=== PATIENT | male | born 1950 | race Caucasian/White ===

== ENCOUNTER 2016-12-27 14:42 | Inpatient (IN) | payer MEDICARE ==
[2016-12-27 16:35] LABS: Anion Gap 14 mmol/L (10-20); BUN (Urea Nitrogen) 8 mg/dL (8.4-25.7); Calc. Creatinine Clearance 0 mL/min (70-130); Calcium 8.9 mg/dL (7.8-10.44); Carbon Dioxide 27 mmol/L (23-31); Chloride 86 mmol/L (98-107); Estimated GFR-MDRD Greater than 90
[2016-12-27] MEDS ORDERED: cefTRIAXone\\ROCEPHIN 2 GM in Sodium Chloride 0.9% 100 ML IVPB SCH (16:57)
[2016-12-27 17:01] VITALS: BMI 20.7
[2016-12-27] MEDS: Enalaprilat Dihydrate 1.25 MG/ML VIAL SLOW IVP SCH (17:58)
[2016-12-27] MEDS ORDERED: Potassium Chloride 20 MEQ TAB PO SCH (20:15)
[2016-12-27] MEDS: Multivitamins, Adult 10 ML, Folic Acid 1 MG, Thiamine HCl 100 MG in Dextrose 5 %-0.45 %... IV SCH ×4 (20:48)
[2016-12-27] MEDS: Famotidine 20 MG TAB PO SCH (20:49)
[2016-12-27] MEDS: guaiFENesin ER 600 MG TAB PO SCH (20:49)
--- NOTE | 2016-12-27 23:26 | HP ---
DATE OF ADMISSION: 12/27/2016 CHIEF COMPLAINT: Shortness of breath, cough, and feeling overall very weak for the last few days kan arently. He was having some respiratory issues approximately 11 days ago when he went to GP and then his condition got better than it worsened and he decided to come to the emergency room. He came to [facility] today and complained about shortness of breath and overall feeling weak and h aving coughing spells. His chest x-ray showed possible right upper lobe pneumonia and the patient wa s transferred to [facility]. Also, he was found to have hyponatremia and hypokale [place]. This is probably related to his poor appetite in the last few days. He had some fever in the b eginning of this illness with some chills, but no fever and no chills recently. PAST MEDICAL HISTORY: 1. Positive for hypertension. 2. History of non-Hodgkin's lymphoma. CURRENT MEDICATIONS: Benazepril amlodipine 10/20 one tablet once a day, Nexium 40 mg once a day. FAMILY HISTORY: His mother is still alive. She is 84. Father of unclear cause. ALLERGIES: None. REVIEW OF SYSTEMS: Twelve systems were reviewed and they were negative except for HPI symptoms. Als o, he is complaining about feeling cold quite often. PHYSICAL EXAMINATION: VITAL SIGNS: His blood pressure is 169/86, pulse is 120. Respiratory rate is 24. HEENT: His head is atraumatic, normocephalic. He looks quite sick, tired and weak. Eyes are PERRLA . Eyes are sunken. Sclerae nonicteric. Conjunctivae pinkish. Oral mucosa is somewhat dry. NECK: Supple, no lymphadenopathy, no JVD. LUNGS: Bilateral crackles and rales present at the left base and in the right base. HEART: S1, S2, tachycardic. No S3, no S4, no any murmur. ABDOMEN: Soft, nontender, nondistended, bowel sounds are present, no organomegaly. EXTREMITIES: No clubbing, cyanosis or edema. Pulses are palpable on both tibialis posterior and joseph salis pedis arteries, similar bilaterally. NEUROLOGIC: He is alert and oriented x4, there is no any sensorimotor deficits present. Cranial ner ves are intact. SKIN: No rash or erythema. LABORATORY AND X-RAY FINDINGS: Showed white count of 16.9, hemoglobin 14.4, hematocrit 42.5, platele t count is 447. Sodium of 121, chloride 77, CO2 of 28, BUN 9, creatinine 1.09, CK-MB 2.3, troponin I less than 0.010. Urine showed 1+ bacteria, trace of leukocytes and trace of blood. BNP was 46.6, p otassium was 2.9. Chest x-ray was done and it showed right upper lobe infiltrate. I do not see an E KG in the documentation bolus in emergency room. We will look for one and if we cannot find i t, we will get a new one. IMPRESSION: 1. Post-flu pneumonia, it is in the right upper lobe. 2. Hyponatremia, hypochloremia, most likely related to volume loss. 3. Hypokalemia, for replacement. 4. History of non-Hodgkin's lymphoma in the past. 5. Hypertension. PLAN: Full admission to MICU. Condition is guarded. IV normal saline 100 mL per hour. IV Levaquin and IV Rocephin. Pulmonary consultation. DuoNeb q.4 hours. DVT prophylaxis with Lovenox and PUD p rophylaxis with H2 víctor. Continue home medications and [facility], so we are going to check on that tomorrow, we will get lab work tomorrow morning and g o from there.
[2016-12-28] MEDS: Enalaprilat Dihydrate 1.25 MG/ML VIAL SLOW IVP SCH ×2 (00:19→06:27)
[2016-12-28] MEDS: Acetaminophen 325 MG TAB PO PRN ×3 (04:15→17:36)
[2016-12-28 04:32] LABS: Strp pneuU Control Background? CLEAR/WHITE (CLR/WHITE); Strp pneumo Control Bar Appear YES (CONTROL BAR)
[2016-12-28 05:14] LABS: Anion Gap 14 mmol/L (10-20); BUN (Urea Nitrogen) 7 mg/dL (8.4-25.7); Calc. Creatinine Clearance 93 mL/min (70-130); Calcium 8.5 mg/dL (7.8-10.44); Carbon Dioxide 26 mmol/L (23-31); Chloride 86 mmol/L (98-107); Estimated GFR-MDRD Greater than 90
[2016-12-28 05:55] LABS: Band 13 % (5-11); Mean Platelet Volume 5.7 fL (7.4-10.4); Myelocyte 1 % (0-0); Neutrophil 72 % (42-75); Red Blood Cell (RBC) Count 3.74 mill/uL (4.70-6.10); White Blood Cell (WBC) Count 16.6 thou/uL (4.8-10.8)
[2016-12-28] MEDS: Potassium Chloride 20 MEQ TAB PO SCH ×3 (06:24→17:36)
--- NOTE | 2016-12-28 08:13 | PRG ---
DATE OF SERVICE: 12/28/2016 SUBJECTIVE: The patient is seen and examined at the bedside. He is doing significantly better. He is up and he just finished his breakfast. He is still coughing quite a bit, but that is less than ye sterday. Overall, he feels much better. OBJECTIVE: VITAL SIGNS: Blood pressure is 146/68, respiratory rate is 16, O2 saturation is 96% on 2 liters, tem perature is 98.5, pulse is 87 beats per minute. Maximal temperature overnight was 99.3. HEENT: His head is atraumatic, normocephalic. Eyes are PERRLA. Sclerae nonicteric. Oral mucosa mo ist. NECK: Supple, no lymphadenopathy. Thyroid is not palpable. LUNGS: Bilateral rales and wheezing present at all lobes. CARDIOVASCULAR: S1, S2 normal, no S3, no S4. ABDOMEN: Nontender, nondistended. Bowel sounds are present. No organomegaly. EXTREMITIES: No clubbing, cyanosis or edema. NEUROLOGIC: He is alert and oriented x4. There is not any sensory motor deficits present. Cranial nerves are intact. LABORATORY DATA: Showed white count of 16.6, hemoglobin of 11.5, hematocrit 34.0, platelet count is 440. Sodium 123, potassium 2.9, chloride 86, CO2 26, BUN 7, creatinine 0.77, glucose 131, magnesium 1.0. Streptococcal pneumoniae antigen in the urine is negative. Microbiology results are not posted yet. IMPRESSION AND PLAN: 1. Right upper lobe pneumonia versus bronch-pneumonia, clinically the patient improved, although his white count is still elevated with increased risk of Staphylococcal infection, we are going to start him on vancomycin and we will have mash filter cloth changer to evaluate his condition and give us recommendatio ns. 2. Hyponatremia. We will obtain a urine and serum osmolalities and urine electrolytes to assess the kind of hyponatremia he has and in the meantime, we will give him normal saline at 75 mL per hour. I think he is just volume depleted. 3. Hypomagnesemia. We will correct with IV magnesium. 4. Hypertension. The patient is back on his home medications at this time. 5. History of non-Hodgkin's lymphoma. 6. Dehydration. We will give him IV fluids. The patient is going to be transferred to a telemetry floor after he is seen by a mash filter cloth changer and his electrolyte deficiencies were replaced and we will continue his DuoNeb q.4 hours and we will continue deep venous thrombosis prophylaxis with Lovenox, a nd H2 víctor for peptic ulcer disease prophylaxis and we will check on blood cultures.
[2016-12-28] MEDS ORDERED: Magnesium 2 GM/NS 0.9% 100 ML 2 GM in Premix Bag 1 BAG IVPB SCH ×2 (08:45→12:00)
[2016-12-28] MEDS ORDERED: AMLODIPINE BESYLATE PO SCH (09:00)
[2016-12-28] MEDS ORDERED: BENAZEPRIL PO SCH (09:00)
[2016-12-28] MEDS: Vancomycin HCl 1 GM in Premix Bag 1 BAG IVPB SCH ×2 (09:03→20:46)
[2016-12-28] MEDS: Sodium Chloride 0.9% 1,000 ML IV SCH (09:03)
[2016-12-28] MEDS: guaiFENesin ER 600 MG TAB PO SCH ×2 (09:05→20:46)
[2016-12-28] MEDS: Amlodipine 10 MG TAB PO SCH (09:05)
[2016-12-28] MEDS: Enoxaparin Sodium 40 MG/0.4 ML SYRINGE SC SCH (09:05)
[2016-12-28] MEDS: Famotidine 20 MG TAB PO SCH ×2 (09:05→20:46)
[2016-12-28 10:12] LABS: Potassium, Urine 20.8 mmol/L
[2016-12-28 10:18] LABS: LegU Control Bar Appear? YES (CONTROL BAR); LegionellaU Control Bkground? CLEAR/WHITE (CLR/WHITE)
--- NOTE | 2016-12-28 10:36 | CT ---
CT THORAX WITHOUT IV CONTRAST: Date: 12/28/16 HISTORY: Pneumonia. COMPARISON: 11/02/15. FINDINGS: Lack of IV contrast limits evaluation of the vascular structures, as well as mediastinal structures. Vascular calcifications are seen in the coronary arteries, as well as involving the thoracic aorta. There is a mildly enlarged lymph node seen within the AP window measuring approximately 1.5 cm in vesta rt axis dimension, which is larger in size compared to prior exam where this measured approximately 1 .0 cm in short axis. Small hiatal hernia is present. There are bibasilar reticulonodular densities with patchy parenchymal opacities at each lung base, gr eater on the left. Findings are worrisome for infectious process. A few scattered reticulonodular den sities are also seen within each upper lobe and to a lesser extent right middle lobe. A few ground-gl ass opacities are also seen within the medial aspect of each upper lobe. No pleural effusion is ident ified. No other interval change from the prior exam. These findings were not present on the prior study. There is a small amount of fluid in the esophagus which may be related to gastroesophageal reflux. Degenerative changes are seen in the spine. There is right convex curvature of the upper thoracic spi ne. IMPRESSION: 1. Reticulonodular densities seen throughout the lungs bilaterally, greater in the left lower lobe, with bibasilar areas of consolidation also greater in the left lung base. Findings are likely related to infectious or inflammatory process and atypical infectious process should be considered. 2. Mild enlargement of a mediastinal lymph node in the region of the AP window. No other enlarged ly mph nodes are appreciated by CT size criteria. Prior studies indicate history of lymphoma. 3. Nonspecific bilateral perinephric stranding. POS: [facility]
--- NOTE | 2016-12-28 11:00 | RAD ---
PORTABLE AP CHEST: Date: 12/28/16 HISTORY: Pneumonia. COMPARISON: 12/27/16. FINDINGS: There is mild increased interstitial densities at the left lung base, which may be related to develop ing pneumonia. A few linear interstitial densities are also seen at the right lung base. The cardiac silhouette and pulmonary vasculature are within normal limits. No other interval change. IMPRESSION: Interstitial densities at the left lung base, worrisome for developing pneumonia. Follow-up to resolu tion is recommended. POS: [facility]
[2016-12-28] MEDS ORDERED: Sodium Chloride 3% 250 ML IVPB SCH (12:45)
--- NOTE | 2016-12-28 16:17 | CON ---
DATE OF CONSULTATION: 12/28/2106 HISTORY OF PRESENT ILLNESS: Mr. Marshall is a 66-year-old male who presented with several days of coug h and shortness of breath as well as an anxious feeling. Chest radiograph shows an upper lobe infiltrate. He subsequently was transferred for admission. He says he felt better than when he went to the ER yesterday. PAST MEDICAL HISTORY: Remarkable for hypertension, history of treated lymphoma. SOCIAL HISTORY: He is nonsmoker, nondrinker. He says he quit like 18 years ago. He does dip snuff all day long. He was on benazepril, Nexium prior to admission. Father is . Mother is alive at 84[address] drug use. ALLERGIES: He has no drug allergies. REVIEW OF SYSTEMS: Twelve-point review of systems was negative. PHYSICAL EXAMINATION VITAL SIGNS: He is afebrile, heart rate is 97, respiratory rate 16, oximetry is 97, blood pressure 1 13/59. HEAD AND NECK: Unremarkable. Dentition is fair. He has no cervical lymphadenopathy. LUNGS: Remarkable for crackles in both bases. HEART: Regular rhythm. S1 and S2 are normal. ABDOMEN: Soft and nontender. EXTREMITIES: Without clubbing, cyanosis, or edema. LABORATORY DATA: White count 16.6, hemoglobin 11.5, platelets 440,000. Sodium 123, potassium 2.9, c hloride 86, bicarbonate 26, BUN 7, creatinine 0.77, glucose 250. IMPRESSION: 1. Pneumonia, community acquired. 2. Hyponatremia, cortisol level, TSH needs to be ordered. He will be given 1 dose of 3% saline 250 mL over 3 hours. I doubt this is real estate representative of an underlying malignancy and likely is related to his pneumonia. This is lower than what I would expect for drug-induced hyponatremia, though it is s till in the differential. I agree with antimicrobial coverage. He says he is feeling better. I think he can be transferred ou t of the intermediate care unit. Chest radiograph and CT have been reviewed.
[2016-12-28] MEDS: Lorazepam 1 MG TAB PO PRN (20:50)
[2016-12-29] MEDS: Lorazepam 1 MG TAB PO PRN (00:50)
[2016-12-29] MEDS: Multivitamins, Adult 10 ML, Folic Acid 1 MG, Thiamine HCl 100 MG in Dextrose 5 %-0.45 %... IV SCH ×4 (00:51)
[2016-12-29] MEDS: Sodium Chloride 0.9% 1,000 ML IV SCH (00:58)
[2016-12-29 05:48] LABS: Anion Gap 13 mmol/L (10-20); BUN (Urea Nitrogen) 7 mg/dL (8.4-25.7); Calc. Creatinine Clearance 88 mL/min (70-130); Calcium 8.7 mg/dL (7.8-10.44); Carbon Dioxide 25 mmol/L (23-31); Chloride 88 mmol/L (98-107); Estimated GFR-MDRD Greater than 90
[2016-12-29 06:16] LABS: Band 14 % (5-11); Hematocrit 34.6 % (42.0-52.0); Mean Platelet Volume 5.8 fL (7.4-10.4); Neutrophil 78 % (42-75); Red Blood Cell (RBC) Count 3.75 mill/uL (4.70-6.10); Toxic Granulation SLIGHT; White Blood Cell (WBC) Count 18.6 thou/uL (4.8-10.8)
[2016-12-29] MEDS ORDERED: Mag-Al 1200 mg/1200 mg/30 ML UDCUP PO PRN (07:36)
[2016-12-29] MEDS ORDERED: Bisacodyl 10 MG SUPP PR PRN (07:36)
[2016-12-29] MEDS ORDERED: Sodium Chloride 0.65% Nasal 44 ML BOT EA NARE PRN (07:36)
[2016-12-29] MEDS ORDERED: Loratadine 10 MG TAB PO PRN (07:36)
[2016-12-29] MEDS ORDERED: Loperamide HCl 2 MG CAP PO PRN (07:36)
[2016-12-29] MEDS ORDERED: Artificial Tears 18 DROP/0.9 ML EA EYE PRN (07:36)
[2016-12-29] MEDS ORDERED: Chloraseptic Spray 180 ml Bottle PO PRN (07:36)
[2016-12-29] MEDS ORDERED: hydrALAZINE 20 MG/ML VIAL SLOW IVP PRN (07:36)
[2016-12-29] MEDS ORDERED: Milk Of Magnesia 30 ML UDCUP PO PRN (07:36)
[2016-12-29] MEDS ORDERED: Temazepam 15 MG CAP PO PRN (07:36)
[2016-12-29] MEDS ORDERED: HYDROcodone/Acetaminophen 5/325 mg Tablet PO PRN (07:36)
[2016-12-29] MEDS ORDERED: Ondansetron ODT 4 MG TAB PO PRN (07:36)
[2016-12-29] MEDS ORDERED: cloNIDine 0.1 MG TAB PO PRN (07:36)
[2016-12-29] MEDS ORDERED: Ondansetron HCl/PF 4 MG/2 ML Vial IVP PRN (07:36)
[2016-12-29] MEDS ORDERED: Diabetic Tussin 200 MG/10 ML UDCUP PO PRN (07:36)
[2016-12-29] MEDS ORDERED: Eucerin (Mineral Oil/Petrolatum,White) 30 gm Jar TOP PRN (07:36)
[2016-12-29 07:57] LABS: Magnesium 1.6 mg/dL (1.6-2.6); Phosphorus 2.3 mg/dL (2.3-4.7)
[2016-12-29] MEDS: NS 0.9% w/ 20 MEQ KCL 1,000 ML/1,000 ML BAG IV SCH (08:06)
[2016-12-29] MEDS: Multivitamin W/ Minerals 1 TAB PO SCH (08:11)
[2016-12-29] MEDS: Ferrous Sulfate 325 MG TAB PO SCH (08:12)
[2016-12-29] MEDS: Amlodipine 10 MG TAB PO SCH (08:12)
[2016-12-29] MEDS: guaiFENesin ER 600 MG TAB PO SCH ×2 (08:14→20:23)
[2016-12-29] MEDS: Enoxaparin Sodium 40 MG/0.4 ML SYRINGE SC SCH (08:15)
[2016-12-29] MEDS: Vancomycin HCl 1 GM in Premix Bag 1 BAG IVPB SCH ×2 (08:16→20:23)
[2016-12-29 09:48] LABS: Free T3 1.49 pg/mL (1.71-3.71)
[2016-12-29] MEDS: Acetaminophen 325 MG TAB PO PRN (11:55)
--- NOTE | 2016-12-29 12:25 | PDOC.PN ---
- Subjective Encounter Start Date: 12/29/16 Encounter Start Time: 08:50 -: old records requested/rev Patient seen and examined. No new complaints. No overnight events - Objective Resuscitation Status: Resuscitation Status FULL:Full Resuscitation MAR Reviewed: Yes Vital Signs & Weight: Vital Signs (12 hours) Temp Pulse Resp BP BP Pulse Ox 12/29/16 11:59 99.6 F 108 H 24 H 94 L 12/29/16 11:37 98.4 F 118 H 16 159/83 H 12/29/16 10:31 105 H 18 96 12/29/16 08:14 98 F 106 H 18 140/80 140/80 93 L 12/29/16 08:12 103 H 140/80 12/29/16 08:00 98 F 106 H 18 93 L 12/29/16 06:44 95 12/29/16 06:42 103 H 22 H 95 12/29/16 04:00 98.7 F 105 H 30 H 158/82 H 90 L 12/29/16 01:47 92 L I&O: 12/28/16 12/29/16 12/30/16 06:59 06:59 06:59 Intake Total 1780 960 Output Total 1250 Balance 530 960 Result Diagrams: 12/29/16 04:31 12/29/16 04:31 Radiology Reviewed by me: Yes Phys Exam - Physical Examination Constitutional: NAD HEENT: PERRLA, moist MMs, sclera anicteric Neck: no JVD, supple Respiratory: no wheezing, no rhonchi left base rales Cardiovascular: RRR, no significant murmur, no rub Gastrointestinal: soft, non-tender, no distention, positive bowel sounds Musculoskeletal: no edema, pulses present Neurological: non-focal, normal sensation Lymphatic: no nodes Psychiatric: normal affect, A&O x 3 Skin: no rash, normal turgor Dx/Plan (1) Community acquired bacterial pneumonia Code(s): J15.9 - UNSPECIFIED BACTERIAL PNEUMONIA Status: Acute (2) Hypokalemia Code(s): E87.6 - HYPOKALEMIA Status: Acute (3) Hypomagnesemia Code(s): E83.42 - HYPOMAGNESEMIA Status: Acute (4) Hyponatremia Code(s): E87.1 - HYPO-OSMOLALITY AND HYPONATREMIA Status: Acute (5) Sepsis Code(s): A41.9 - SEPSIS, UNSPECIFIED ORGANISM Status: Acute (6) Anemia, normocytic normochromic Code(s): D64.9 - ANEMIA, UNSPECIFIED Status: Chronic (7) Hypertension Code(s): I10 - ESSENTIAL (PRIMARY) HYPERTENSION Status: Chronic - Plan cont current plan of care, plan discussed w/ family, continue antibiotics, respiratory therapy * continue levaquin and vancomycin * replace potassium * pt is clinically improving * discussed with * medication reviewed as below * symptomatic treatment * follow culture. * change IVF with NS and KCL * repeat labs tomorrow * start PT Review of Systems - Review of Systems Constitutional: negative: Fever, Chills, Sweats, Weakness, Malaise, Other ENT: negative: Ear Pain, Ear Discharge, Nose Pain, Nose Discharge, Nose Congestion, Mouth Pain, Mouth Swelling, Throat Pain, Throat Swelling, Other Respiratory: Cough, Shortness of Breath. negative: Dry, Hemoptysis, SOB with Excertion, Pleuritic Pain, Sputum, Wheezing Cardiovascular: negative: Chest Pain, Palpitations, Orthopnea, Paroxysmal Noc. Dyspnea, Edema, Light Headedness, Other Gastrointestinal: negative: Nausea, Vomiting, Abdominal Pain, Diarrhea, Constipation, Melena, Hematochezia, Other Genitourinary: negative: Dysuria, Frequency, Incontinence, Hematuria, Retention , Other Musculoskeletal: negative: Neck Pain, Shoulder Pain, Arm Pain, Back Pain, Hand Pain, Leg Pain, Foot Pain, Other Skin: negative: Rash, Lesions, Suhail, Bruising, Other - Medications/Allergies Allergies/Adverse Reactions: Allergies Allergy/AdvReac Type Severity Reaction Status Date / Time No Known Drug Allergies Allergy Verified 12/27/16 17:24 Medications: Current Medications Acetaminophen (Tylenol) 650 mg PO Q4H PRN PRN Reason: Headache/Fever or Pain Last Admin: 12/29/16 11:55 Dose: 650 mg Hydrocodone Bitart/Acetaminophen ([place] 5/325) 1 tab PO Q4H PRN PRN Reason: Moderate Pain (4-6) Al Hydroxide/Mg Hydroxide (Maalox) 15 ml PO Q4H PRN PRN Reason: Heartburn or Indigestion Albuterol/Ipratropium (Duoneb) 3 ml NEB [id number] Last Admin: 12/29/16 10:31 Dose: 3 ml Amlodipine Besylate (Norvasc) 10 mg PO DAILY [facility] Last Admin: 12/29/16 08:12 Dose: 10 mg Artificial Tears (Tears Naturale) 0 drop EA EYE PRN PRN PRN Reason: Dry Eyes Benazepril HCl (Lotensin) 20 mg PO DAILY [facility] Last Admin: 12/29/16 08:14 Dose: 20 mg Bisacodyl (Dulcolax) 10 mg [place] DAILYPRN PRN PRN Reason: Constipation Clonidine (Catapres) 0.1 mg PO Q4H PRN PRN Reason: Systolic BP > 180 Enoxaparin Sodium (Lovenox) 40 mg SC 0900 [facility] Last Admin: 12/29/16 08:15 Dose: 40 mg Ferrous Sulfate (Feosol) 325 mg PO QA-[facility] Last Admin: 12/29/16 08:12 Dose: 325 mg Guaifenesin (Mucinex) 600 mg PO Q12HR [facility] Last Admin: 12/29/16 08:14 Dose: 600 mg Guaifenesin (Robitussin Sf) 200 mg PO Q4H PRN PRN Reason: Cough Hydralazine HCl (Apresoline) 10 mg SLOW IVP Q4H PRN PRN Reason: Systolic BP > 180 Levofloxacin 750 mg/ Device 150 mls @ 100 mls/hr IVPB Q24HR [facility] Last Admin: 12/28/16 17:36 Dose: 150 mls Vancomycin HCl 1 gm/ Device 200 mls @ 200 mls/hr IVPB Q12HR [facility] Last Admin: 12/29/16 08:16 Dose: 200 mls Potassium Chloride/Sodium Chloride (Ns 0.9% W/ 20 Meq Kcl) 1,000 ml in 1,000 mls @ 75 mls/hr IV .[id number] [facility] Last Admin: 12/29/16 08:06 Dose: 1,000 mls Iron/Minerals/Multivitamins (Theragran M) 1 tab PO DAILY [facility] Last Admin: 12/29/16 08:11 Dose: 1 tab Loperamide HCl (Imodium) 2 mg PO PRN PRN PRN Reason: Diarrhea/Loose Stools Loratadine (Claritin) 10 mg PO DAILYPRN PRN PRN Reason: Sinus Symptoms Lorazepam (Ativan) 1 mg PO Q4H PRN PRN Reason: Anxiety/Agitation Last Admin: 12/29/16 00:50 Dose: 1 mg Magnesium Hydroxide (Milk Of Magnesium) 30 ml PO DAILYPRN PRN PRN Reason: Constipation Metoprolol Succinate (Toprol Xl) 25 mg PO DAILY [facility] Last Admin: 12/29/16 08:13 Dose: 25 mg Mineral Oil/White Petrolatum (Eucerin Cream) 0 gm TOP BIDPRN PRN PRN Reason: Dry Skin Miscellaneous Medication (Pharmacy To Dose) 1 each IVPB PRN PRN PRN Reason: Pharmacy to dose Ondansetron HCl (Zofran Odt) 4 mg PO Q6H PRN PRN Reason: Nausea/Vomiting Ondansetron HCl (Zofran) 4 mg IVP Q6H PRN PRN Reason: Nausea/Vomiting Pantoprazole Sodium (Protonix) 40 mg PO DAILY [facility] Last Admin: 12/29/16 08:12 Dose: 40 mg Phenol (Chloraseptic [place] 180 Ml Bot) 0 ml PO PRN PRN PRN Reason: Sore Throat Sodium Chloride ([place] Nasal [place] 0.65%) 0 ml EA NARE QIDPRN PRN PRN Reason: Nasal Congestion Temazepam (Restoril) 15 mg PO HSPRN PRN PRN Reason: Insomnia
--- NOTE | 2016-12-29 15:10 | PRG ---
DATE OF SERVICE: 12/29/2016 SUBJECTIVE: He feels a little better today. He had no acute complaints. OBJECTIVE: VITAL SIGNS: On exam, temperature is 99.6, pulse 108, respiration 24, O2 sat 94%, blood pressure 159 /83. HEENT: Unremarkable. NECK: No JVD. CHEST: Fairly clear. CARDIAC: S1 and S2 regular. ABDOMEN: Soft. EXTREMITIES: No edema. LABORATORY DATA: White blood cell count 18.6, hematocrit 34.6, platelet count 515. Sodium 123, pota ssium 3.4, chloride 88, CO2 25, BUN 7, creatinine 0.8, glucose 111. ASSESSMENT: 1. Pneumonia, community acquired. 2. Chronic hyponatremia. PLAN: 1. Continue antibiotics. 2. Increase activity as tolerated. 3. Follow sodium - not sure what the etiology of his chronic hyponatremia is mostly possibly alcohol related.
[2016-12-29 20:19] LABS: Vancomycin, Trough 13.3 ug/mL
[2016-12-30] MEDS: NS 0.9% w/ 20 MEQ KCL 1,000 ML/1,000 ML BAG IV SCH (05:00)
[2016-12-30 05:59] LABS: #Lymphocytes 0.4 thou/uL (1.20-3.40); #Monocytes 1.7 thou/uL (0.11-0.59); #Neutrophils 13.8 thou/uL (1.40-6.50); %Basophils 0.2 % (0.0-1.0); %Eosinophils 0.1 % (0.0-10.0); %Lymphocytes 2.6 % (21.0-51.0); %Monocytes 10.5 % (0.0-10.0); Mean Platelet Volume 5.4 fL (7.4-10.4); Red Blood Cell (RBC) Count 3.69 mill/uL (4.70-6.10); White Blood Cell (WBC) Count 15.9 thou/uL (4.8-10.8)
[2016-12-30 06:24] LABS: ALT (SGPT) 26 U/L (8-55); AST (SGOT) 28 U/L (5-34); Alkaline Phosphatase 98 U/L (40-150); Anion Gap 12 mmol/L (10-20); BUN (Urea Nitrogen) 11 mg/dL (8.4-25.7); Bilirubin, Total 0.5 mg/dL (0.2-1.2); Calc. Creatinine Clearance 86 mL/min (70-130); Calcium 8.7 mg/dL (7.8-10.44); Carbon Dioxide 26 mmol/L (23-31); Chloride 90 mmol/L (98-107); Estimated GFR-MDRD Greater than 90; Globulin 2.6 g/dL (2.4-3.5); Protein, Total 5.6 g/dL (5.8-8.1)
[2016-12-30] MEDS: Amlodipine 10 MG TAB PO SCH (08:55)
[2016-12-30] MEDS: Multivitamin W/ Minerals 1 TAB PO SCH (08:55)
[2016-12-30] MEDS: Ferrous Sulfate 325 MG TAB PO SCH (08:55)
[2016-12-30] MEDS: guaiFENesin ER 600 MG TAB PO SCH ×2 (08:55→20:52)
[2016-12-30] MEDS: Enoxaparin Sodium 40 MG/0.4 ML SYRINGE SC SCH (08:56)
[2016-12-30] MEDS: Potassium Chloride 20 MEQ TAB PO SCH ×2 (08:59→19:42)
[2016-12-30] MEDS: Vancomycin HCl 1.25 GM in Sodium Chloride 0.9% 250 ML 250 ML IVPB SCH ×2 (09:01→20:52)
[2016-12-30] MEDS ORDERED: guaiFENesin/Codeine Phosphate 200 mg/20 mg 10 ml UD Cup PO PRN (12:12)
--- NOTE | 2016-12-30 12:13 | PDOC.PN ---
- Subjective Encounter Start Date: 12/30/16 Encounter Start Time: 09:50 Patient seen and examined. No new complaints. No overnight events because of cough, unable to sleep - Objective Resuscitation Status: Resuscitation Status FULL:Full Resuscitation MAR Reviewed: Yes Vital Signs & Weight: Vital Signs (12 hours) Temp Pulse Resp BP BP BP Pulse Ox 12/30/16 10:41 89 16 12/30/16 08:55 106 H 122/70 12/30/16 08:00 98 F 106 H 22 H 122/70 93 L 12/30/16 06:30 92 L 12/30/16 06:27 95 20 12/30/16 04:00 98 F 105 H 18 136/75 92 L 12/30/16 02:55 92 L Weight Admit Weight 152 lb 12.8 oz Weight 152 lb 12.8 oz I&O: 12/29/16 12/30/16 12/31/16 06:59 06:59 06:59 Intake Total 960 Balance 960 Result Diagrams: 12/30/16 05:42 12/30/16 05:42 Phys Exam - Physical Examination Constitutional: NAD HEENT: PERRLA, moist MMs, sclera anicteric Neck: no JVD, supple Respiratory: no wheezing, no rhonchi few left base rales Cardiovascular: RRR, no significant murmur, no rub Gastrointestinal: soft, non-tender, no distention Musculoskeletal: no edema, pulses present Neurological: non-focal, normal sensation Lymphatic: no nodes Psychiatric: normal affect, A&O x 3 Skin: no rash, normal turgor Dx/Plan (1) Community acquired bacterial pneumonia Code(s): J15.9 - UNSPECIFIED BACTERIAL PNEUMONIA Status: Acute (2) Hypokalemia Code(s): E87.6 - HYPOKALEMIA Status: Acute (3) Hypomagnesemia Code(s): E83.42 - HYPOMAGNESEMIA Status: Acute (4) Hyponatremia Code(s): E87.1 - HYPO-OSMOLALITY AND HYPONATREMIA Status: Acute (5) Sepsis Code(s): A41.9 - SEPSIS, UNSPECIFIED ORGANISM Status: Acute (6) Anemia, normocytic normochromic Code(s): D64.9 - ANEMIA, UNSPECIFIED Status: Chronic (7) Hypertension Code(s): I10 - ESSENTIAL (PRIMARY) HYPERTENSION Status: Chronic - Plan cont current plan of care, continue antibiotics, respiratory therapy * DC IVF * fluid restriciton for hyponatremia * add robitussin AC for cough * continue levaquin and vancomycin * medication reviewed as below * symptomatic treatment. * repeat labs tomorrow Review of Systems - Review of Systems Constitutional: negative: Fever, Chills, Sweats, Weakness, Malaise, Other Eyes: negative: Pain, Vision Change, Conjunctivae Inflammation, Eyelid Inflammation, Redness, Other Respiratory: Cough. negative: Dry, Shortness of Breath, Hemoptysis, SOB with Excertion, Pleuritic Pain, Sputum, Wheezing Cardiovascular: negative: Chest Pain, Palpitations, Orthopnea, Paroxysmal Noc. Dyspnea, Edema, Light Headedness, Other Gastrointestinal: negative: Nausea, Vomiting, Abdominal Pain, Diarrhea, Constipation, Melena, Hematochezia, Other Genitourinary: negative: Dysuria, Frequency, Incontinence, Hematuria, Retention , Other Musculoskeletal: negative: Neck Pain, Shoulder Pain, Arm Pain, Back Pain, Hand Pain, Leg Pain, Foot Pain, Other Skin: negative: Rash, Lesions, Suhail, Bruising, Other Neurological: negative: Weakness, Numbness, Incoordination, Change in Speech, Confusion, Seizures, Other - Medications/Allergies Allergies/Adverse Reactions: Allergies Allergy/AdvReac Type Severity Reaction Status Date / Time No Known Drug Allergies Allergy Verified 12/27/16 17:24 Medications: Current Medications Acetaminophen (Tylenol) 650 mg PO Q4H PRN PRN Reason: Headache/Fever or Pain Last Admin: 12/29/16 11:55 Dose: 650 mg Hydrocodone Bitart/Acetaminophen ([place] 5/325) 1 tab PO Q4H PRN PRN Reason: Moderate Pain (4-6) Al Hydroxide/Mg Hydroxide (Maalox) 15 ml PO Q4H PRN PRN Reason: Heartburn or Indigestion Albuterol/Ipratropium (Duoneb) 3 ml NEB [id number] Last Admin: 12/30/16 10:41 Dose: 3 ml Amlodipine Besylate (Norvasc) 10 mg PO DAILY [facility] Last Admin: 12/30/16 08:55 Dose: 10 mg Artificial Tears (Tears Naturale) 0 drop EA EYE PRN PRN PRN Reason: Dry Eyes Benazepril HCl (Lotensin) 20 mg PO DAILY [facility] Last Admin: 12/30/16 08:55 Dose: 20 mg Bisacodyl (Dulcolax) 10 mg [place] DAILYPRN PRN PRN Reason: Constipation Clonidine (Catapres) 0.1 mg PO Q4H PRN PRN Reason: Systolic BP > 180 Enoxaparin Sodium (Lovenox) 40 mg SC 0900 [facility] Last Admin: 12/30/16 08:56 Dose: 40 mg Ferrous Sulfate (Feosol) 325 mg PO QAM-WM [facility] Last Admin: 12/30/16 08:55 Dose: 325 mg Guaifenesin (Mucinex) 600 mg PO Q12HR [facility] Last Admin: 12/30/16 08:55 Dose: 600 mg Guaifenesin (Robitussin Sf) 200 mg PO Q4H PRN PRN Reason: Cough Last Admin: 12/29/16 16:49 Dose: 200 mg Hydralazine HCl (Apresoline) 10 mg SLOW IVP Q4H PRN PRN Reason: Systolic BP > 180 Levofloxacin 750 mg/ Device 150 mls @ 100 mls/hr IVPB Q24HR [facility] Last Admin: 12/29/16 16:45 Dose: 150 mls Vancomycin HCl 1.25 gm/ Sodium (Chloride) 250 mls @ 166.667 mls/hr IVPB 0900, 2100 [facility] Last Admin: 12/30/16 09:01 Dose: 250 mls Iron/Minerals/Multivitamins (Theragran M) 1 tab PO DAILY [facility] Last Admin: 12/30/16 08:55 Dose: 1 tab Loperamide HCl (Imodium) 2 mg PO PRN PRN PRN Reason: Diarrhea/Loose Stools Loratadine (Claritin) 10 mg PO DAILYPRN PRN PRN Reason: Sinus Symptoms Lorazepam (Ativan) 1 mg PO Q4H PRN PRN Reason: Anxiety/Agitation Last Admin: 12/29/16 00:50 Dose: 1 mg Magnesium Hydroxide (Milk Of Magnesium) 30 ml PO DAILYPRN PRN PRN Reason: Constipation Metoprolol Succinate (Toprol Xl) 25 mg PO DAILY [facility] Last Admin: 12/30/16 08:55 Dose: 25 mg Mineral Oil/White Petrolatum (Eucerin Cream) 0 gm TOP BIDPRN PRN PRN Reason: Dry Skin Miscellaneous Medication (Pharmacy To Dose) 1 each IVPB PRN PRN PRN Reason: Pharmacy to dose Ondansetron HCl (Zofran Odt) 4 mg PO Q6H PRN PRN Reason: Nausea/Vomiting Ondansetron HCl (Zofran) 4 mg IVP Q6H PRN PRN Reason: Nausea/Vomiting Pantoprazole Sodium (Protonix) 40 mg PO DAILY [facility] Last Admin: 12/30/16 08:56 Dose: 40 mg Phenol (Chloraseptic [place] 180 Ml Bot) 0 ml PO PRN PRN PRN Reason: Sore Throat Potassium Chloride (K-Dur) 40 meq PO Q6H [facility] Stop: 12/30/16 14:31 Last Admin: 12/30/16 08:59 Dose: 40 meq Sodium Chloride ([place] Nasal [place] 0.65%) 0 ml EA NARE QIDPRN PRN PRN Reason: Nasal Congestion Temazepam (Restoril) 15 mg PO HSPRN PRN PRN Reason: Insomnia
--- NOTE | 2016-12-30 13:33 | PRG ---
DATE OF SERVICE: 12/30/2016 SUBJECTIVE: The patient is doing reasonably well. He had no acute complaints. PHYSICAL EXAMINATION: VITAL SIGNS: Temperature 98.0, pulse 89, blood pressure 122/70, respiratory rate 16, O2 sat 93%. HEENT: Unremarkable. NECK: No JVD. LUNGS: Fairly clear. CARDIAC: S1 and S2 regular. ABDOMEN: Soft. EXTREMITIES: No edema. LABORATORY DATA: Sodium 125, potassium 3.3, chloride 90, CO2 of 26, BUN 11, creatinine 0.8, glucose 108. White blood cell count 15.9, hemoglobin 11.1, hematocrit 34.0, platelet count 574. ASSESSMENT: 1. Pneumonia. 2. Hyponatremia. PLAN: He is continuing antibiotics. Increase activity as tolerated. I think he can be ready for [facility] by Sunday.
[2016-12-31 06:43] LABS: Band 1 % (5-11); Hematocrit 31.3 % (42.0-52.0); Mean Platelet Volume 5.3 fL (7.4-10.4); Neutrophil 84 % (42-75); White Blood Cell (WBC) Count 11.1 thou/uL (4.8-10.8)
[2016-12-31 06:44] LABS: ALT (SGPT) 38 U/L (8-55); AST (SGOT) 38 U/L (5-34); Alkaline Phosphatase 88 U/L (40-150); Anion Gap 11 mmol/L (10-20); BUN (Urea Nitrogen) 10 mg/dL (8.4-25.7); Bilirubin, Total 0.5 mg/dL (0.2-1.2); Calc. Creatinine Clearance 88 mL/min (70-130); Calcium 8.7 mg/dL (7.8-10.44); Carbon Dioxide 25 mmol/L (23-31); Chloride 94 mmol/L (98-107); Estimated GFR-MDRD Greater than 90; Globulin 2.5 g/dL (2.4-3.5); Protein, Total 5.3 g/dL (5.8-8.1)
[2016-12-31] MEDS: Amlodipine 10 MG TAB PO SCH (08:06)
[2016-12-31] MEDS: Enoxaparin Sodium 40 MG/0.4 ML SYRINGE SC SCH (08:07)
[2016-12-31] MEDS: Ferrous Sulfate 325 MG TAB PO SCH (08:07)
[2016-12-31] MEDS: guaiFENesin ER 600 MG TAB PO SCH ×2 (08:07→20:36)
[2016-12-31] MEDS: Multivitamin W/ Minerals 1 TAB PO SCH (08:07)
[2016-12-31] MEDS: Vancomycin HCl 1.25 GM in Sodium Chloride 0.9% 250 ML 250 ML IVPB SCH ×2 (10:52→20:37)
--- NOTE | 2016-12-31 12:52 | PDOC.PN ---
- Subjective Encounter Start Date: 12/31/16 Encounter Start Time: 09:50 Patient seen and examined. No new complaints. No overnight events - Objective Resuscitation Status: Resuscitation Status FULL:Full Resuscitation MAR Reviewed: Yes Vital Signs & Weight: Vital Signs (12 hours) Temp Pulse Resp BP BP Pulse Ox 12/31/16 10:14 103 H 16 12/31/16 08:06 109 H 132/51 L 12/31/16 08:05 122/70 12/31/16 08:00 97.8 F 112 H 22 H 156/78 H 95 12/31/16 07:00 94 L 12/31/16 06:57 90 16 12/31/16 05:28 92 L 12/31/16 03:17 92 L Weight Admit Weight 152 lb 12.8 oz Weight 152 lb 12.8 oz I&O: 12/30/16 12/31/16 01/01/17 06:59 06:59 06:59 Intake Total 600 Output Total 400 Balance 200 Result Diagrams: 12/31/16 06:00 12/31/16 06:00 Phys Exam - Physical Examination Constitutional: NAD HEENT: PERRLA, moist MMs, sclera anicteric Neck: no JVD, supple Respiratory: no wheezing, no rales, no rhonchi Cardiovascular: RRR, no significant murmur, no rub Gastrointestinal: soft, non-tender, no distention, positive bowel sounds Musculoskeletal: no edema, pulses present Neurological: non-focal, normal sensation, moves all 4 limbs Psychiatric: normal affect, A&O x 3 Skin: no rash, normal turgor Dx/Plan (1) Community acquired bacterial pneumonia Code(s): J15.9 - UNSPECIFIED BACTERIAL PNEUMONIA Status: Acute (2) Hypokalemia Code(s): E87.6 - HYPOKALEMIA Status: Acute (3) Hypomagnesemia Code(s): E83.42 - HYPOMAGNESEMIA Status: Acute (4) Hyponatremia Code(s): E87.1 - HYPO-OSMOLALITY AND HYPONATREMIA Status: Acute (5) Sepsis Code(s): A41.9 - SEPSIS, UNSPECIFIED ORGANISM Status: Acute (6) Anemia, normocytic normochromic Code(s): D64.9 - ANEMIA, UNSPECIFIED Status: Chronic (7) Hypertension Code(s): I10 - ESSENTIAL (PRIMARY) HYPERTENSION Status: Chronic - Plan cont current plan of care, plan discussed w/ family, continue antibiotics * pt is improving * wbc is improving * continue current antibiotics, levaquin changed to PO , continue zosyn * expecting discharge tomorrow. * medication reviewed as below * symptomatic treatment Review of Systems - Review of Systems ENT: negative: Ear Pain, Ear Discharge, Nose Pain, Nose Discharge, Nose Congestion, Mouth Pain, Mouth Swelling, Throat Pain, Throat Swelling, Other Respiratory: negative: Cough, Dry, Shortness of Breath, Hemoptysis, SOB with Excertion, Pleuritic Pain, Sputum, Wheezing Cardiovascular: negative: Chest Pain, Palpitations, Orthopnea, Paroxysmal Noc. Dyspnea, Edema, Light Headedness, Other Gastrointestinal: negative: Nausea, Vomiting, Abdominal Pain, Diarrhea, Constipation, Melena, Hematochezia, Other Genitourinary: negative: Dysuria, Frequency, Incontinence, Hematuria, Retention , Other Musculoskeletal: negative: Neck Pain, Shoulder Pain, Arm Pain, Back Pain, Hand Pain, Leg Pain, Foot Pain, Other Skin: negative: Rash, Lesions, Suhail, Bruising, Other - Medications/Allergies Allergies/Adverse Reactions: Allergies Allergy/AdvReac Type Severity Reaction Status Date / Time No Known Drug Allergies Allergy Verified 12/27/16 17:24 Medications: Current Medications Acetaminophen (Tylenol) 650 mg PO Q4H PRN PRN Reason: Headache/Fever or Pain Last Admin: 12/29/16 11:55 Dose: 650 mg Hydrocodone Bitart/Acetaminophen ([place] 5/325) 1 tab PO Q4H PRN PRN Reason: Moderate Pain (4-6) Al Hydroxide/Mg Hydroxide (Maalox) 15 ml PO Q4H PRN PRN Reason: Heartburn or Indigestion Albuterol/Ipratropium (Duoneb) 3 ml NEB [id number] [facility] Last Admin: 12/31/16 10:14 Dose: 3 ml Amlodipine Besylate (Norvasc) 10 mg PO DAILY [facility] Last Admin: 12/31/16 08:06 Dose: 10 mg Artificial Tears (Tears Naturale) 0 drop EA EYE PRN PRN PRN Reason: Dry Eyes Benazepril HCl (Lotensin) 20 mg PO DAILY [facility] Last Admin: 12/31/16 08:05 Dose: 20 mg Bisacodyl (Dulcolax) 10 mg TN DAILYPRN PRN PRN Reason: Constipation Clonidine (Catapres) 0.1 mg PO Q4H PRN PRN Reason: Systolic BP > 180 Enoxaparin Sodium (Lovenox) 40 mg SC 0900 [facility] Last Admin: 12/31/16 08:07 Dose: 40 mg Ferrous Sulfate (Feosol) 325 mg PO QAM-WM [facility] Last Admin: 12/31/16 08:07 Dose: 325 mg Guaifenesin (Mucinex) 600 mg PO Q12HR [facility] Last Admin: 12/31/16 08:07 Dose: 600 mg Guaifenesin/Codeine Phosphate (Robitussin Ac) 10 ml PO Q6H PRN PRN Reason: Cough Hydralazine HCl (Apresoline) 10 mg SLOW IVP Q4H PRN PRN Reason: Systolic BP > 180 Vancomycin HCl 1.25 gm/ Sodium (Chloride) 250 mls @ 166.667 mls/hr IVPB 0900, 2100 [facility] Last Admin: 12/31/16 10:52 Dose: 250 mls Iron/Minerals/Multivitamins (Theragran M) 1 tab PO DAILY [facility] Last Admin: 12/31/16 08:07 Dose: 1 tab Levofloxacin (Levaquin) 750 mg PO 1800 YUNG Loperamide HCl (Imodium) 2 mg PO PRN PRN PRN Reason: Diarrhea/Loose Stools Loratadine (Claritin) 10 mg PO DAILYPRN PRN PRN Reason: Sinus Symptoms Lorazepam (Ativan) 1 mg PO Q4H PRN PRN Reason: Anxiety/Agitation Last Admin: 12/29/16 00:50 Dose: 1 mg Magnesium Hydroxide (Milk Of Magnesium) 30 ml PO DAILYPRN PRN PRN Reason: Constipation Metoprolol Succinate (Toprol Xl) 25 mg PO DAILY [facility] Last Admin: 12/31/16 08:07 Dose: 25 mg Mineral Oil/White Petrolatum (Eucerin Cream) 0 gm TOP BIDPRN PRN PRN Reason: Dry Skin Miscellaneous Medication (Pharmacy To Dose) 1 each IVPB PRN PRN PRN Reason: Pharmacy to dose Ondansetron HCl (Zofran Odt) 4 mg PO Q6H PRN PRN Reason: Nausea/Vomiting Ondansetron HCl (Zofran) 4 mg IVP Q6H PRN PRN Reason: Nausea/Vomiting Pantoprazole Sodium (Protonix) 40 mg PO DAILY [facility] Last Admin: 12/31/16 08:07 Dose: 40 mg Phenol (Chloraseptic [place] 180 Ml Bot) 0 ml PO PRN PRN PRN Reason: Sore Throat Sodium Chloride ([place] Nasal [place] 0.65%) 0 ml EA NARE QIDPRN PRN PRN Reason: Nasal Congestion Sodium Chloride (Flush - Normal Saline) 10 ml IVF Q12HR [facility] Last Admin: 12/31/16 08:07 Dose: 10 ml Sodium Chloride (Flush - Normal Saline) 10 ml IVF PRN PRN PRN Reason: Saline Flush Temazepam (Restoril) 15 mg PO HSPRN PRN PRN Reason: Insomnia
--- NOTE | 2016-12-31 13:25 | PRG ---
DATE OF SERVICE: 12/31/2016 SUBJECTIVE: He feels better. He is up in a chair. PHYSICAL EXAMINATION: VITAL SIGNS: Temperature is 97.8, pulse 103, respirations 16, blood pressure 132/51. HEENT: Unremarkable. NECK: No JVD. LUNGS: Clear without wheezing. CARDIAC: S1 and S2 regular. ABDOMEN: Soft. EXTREMITIES: No edema. LABORATORY DATA: White blood cell count 11.1, hematocrit 31.3, platelet count 536. Sodium 126, pota ssium 3.6, chloride 94, CO2 25, BUN 10, creatinine 0.8. ASSESSMENT: 1. Pneumonia. 2. Hyponatremia, which is stable. PLAN: I believe he can switch over to oral antibiotic therapy. I really do not see big need for van comycin at this time. I think it would be reasonable to discharge the patient tomorrow if he is tonia reeves well.
[2016-12-31 21:15] LABS: Vancomycin, Trough 25.1 ug/mL
[2017-01-01 05:27] LABS: #Eosinphils 0.1 thou/uL (0.0-0.7); #Lymphocytes 0.4 thou/uL (1.20-3.40); #Monocytes 1.2 thou/uL (0.11-0.59); #Neutrophils 7.6 thou/uL (1.40-6.50); %Basophils 0.2 % (0.0-1.0); %Eosinophils 1.2 % (0.0-10.0); %Lymphocytes 4.6 % (21.0-51.0); %Monocytes 13.2 % (0.0-10.0); Hematocrit 32.3 % (42.0-52.0); Mean Platelet Volume 5.3 fL (7.4-10.4); Red Blood Cell (RBC) Count 3.48 mill/uL (4.70-6.10); White Blood Cell (WBC) Count 9.4 thou/uL (4.8-10.8)
[2017-01-01 05:48] LABS: Anion Gap 12 mmol/L (10-20); BUN (Urea Nitrogen) 14 mg/dL (8.4-25.7); Calc. Creatinine Clearance 77 mL/min (70-130); Calcium 8.8 mg/dL (7.8-10.44); Carbon Dioxide 24 mmol/L (23-31); Chloride 97 mmol/L (98-107); Estimated GFR-MDRD 82
[2017-01-01] MEDS ORDERED: Potassium Chloride 20 MEQ TAB PO SCH (07:15)
[2017-01-01 08:28] VITALS: TEMP 97.9
[2017-01-01] MEDS ORDERED: Vancomycin HCl 1 GM in Premix Bag 1 BAG IVPB SCH (09:00)
[2017-01-01] MEDS: Ferrous Sulfate 325 MG TAB PO SCH (09:21)
[2017-01-01] MEDS: Amlodipine 10 MG TAB PO SCH (09:21)
[2017-01-01] MEDS: guaiFENesin ER 600 MG TAB PO SCH (09:21)
[2017-01-01] MEDS: Multivitamin W/ Minerals 1 TAB PO SCH (09:22)
[2017-01-01] MEDS: Enoxaparin Sodium 40 MG/0.4 ML SYRINGE SC SCH (09:23)
[2017-01-01 09:24] VITALS: BP 132/51
--- NOTE | 2017-01-01 15:00 | DIS ---
DATE OF ADMISSION: 12/27/2016 DATE OF DISCHARGE: 01/01/2017 PRIMARY CARE PHYSICIAN: [facility] call admission. DISCHARGE DISPOSITION: Home. PRIMARY DISCHARGE DIAGNOSES: 1. Community-acquired bacterial pneumonia. 2. Hypokalemia, corrected. 3. Hypomagnesemia, corrected. 4. Hyponatremia due to syndrome of inappropriate antidiuretic hormone secretion. 5. Sepsis, improved. SECONDARY DISCHARGE DIAGNOSES: Hypertension, tobacco chewing, normocytic anemia. PRIMARY PROCEDURE/OPERATION: None. RADIOLOGICAL INVESTIGATION: Chest CT showed reticulonodular density throughout the lungs bilaterally , mild enlargement of mediastinal lymph node, nonspecific bilateral perinephric stranding. Repeat est x-ray showed interstitial density at left lung base. SIGNIFICANT LABS: WBC 9.4, hemoglobin 10.7, platelets 612. Sodium 130, potassium 3.3, BUN 14, creat inine 0.92, calcium 8.8, AST 38, ALT 38, alkaline phosphatase 88, albumin 2.8. Urinalysis, urine osm olality 213. Urine legionella and streptococcal pneumoniae antigen negative. DISCHARGE MEDICATIONS: Amlodipine with benazepril 1 capsule p.o. daily, Nexium 40 mg p.o. daily, jaskaran iqra sulfate 325 mg p.o. daily, Mucinex 600 mg twice daily for 7 days, Levaquin 750 mg p.o. daily for 7 days and Toprol-XL 25 mg p.o. daily. CONTRAINDICATIONS: None. CODE STATUS: FULL CODE. INPATIENT CONSULTANTS: Dr. Redd. TEST RESULTS PENDING ON DISCHARGE: None. ALLERGIES: No known drug allergy. DISCHARGE PLAN: Post hospital, the patient will follow up with Dr. Redd and Dr. Cindy mars. HOSPITAL COURSE: A 66-year-old male with above mentioned medical problems who was admitted by Dr. Douglas ng on 12/27/2016. Please see his H&P for further details. The patient was admitted for pneum onia. He was having pneumonia symptoms. He was treated for pneumonia with Rocephin and Levaquin the rapy. Subsequently, we changed to Levaquin therapy only. Patient had significant improvement with a ntibiotic therapy. Patient was also given vancomycin because he was having leukocytosis with Levaqui n therapy alone. He was not improving significantly, but his cultures remained negative. He had inf luenza recently, which was not treated as an outpatient basis and that is why we covered [facility]. On discharge, we only continued on monotherapy with Levaquin. Pulmonary group was following while in hospital. They cleared him for discharge and he was not requiring any oxygen by the time of dischar ge. We advised him to get repeat chest x-ray in 2 weeks. The patient is seen and examined at [facility] today. The patient is cleared by [facility]monary group for discharge. PHYSICAL EXAMINATION: VITAL SIGNS: Currently, temperature 97.9, pulse 79, respiratory rate 16, saturation 95%, blood pres sure 149/55. Weight 152 pounds. GENERAL: The patient is currently alert, awake, no acute distress. HEAD: Normocephalic, atraumatic. LUNGS: Clear. CARDIAC: S1, S2 regular without any murmur. ABDOMEN: Soft and benign. EXTREMITIES: No edema. NEUROLOGIC: Nonfocal examination. Overall, the patient is medically stable for discharge today.
== END 2017-01-01 11:50 | disposition home or self-care (01) | DRG 871 ==
LOC: ERS 14:42 → IMCU/EMU 15:56 → T4-B 12-28 12:30
PROVIDERS: ADMIT Internal Medicine; ATTEND Internal Medicine
DX: A41.9 Sepsis, unspecified organism (principal); J15.9 Unspecified bacterial pneumonia; E87.8 Other disorders of electrolyte and fluid balance, not elsewhere classified; E22.2 Syndrome of inappropriate secretion of antidiuretic hormone; E83.42 Hypomagnesemia; I10 Essential (primary) hypertension; E87.6 Hypokalemia; Z85.72 Personal history of non-Hodgkin lymphomas; E86.0 Dehydration; D64.9 Anemia, unspecified; Z85.820 Personal history of malignant melanoma of skin; Z72.0 Tobacco use
CPT/HCPCS: 36415; 71010; 71250; 80048; 80053; 80202; 82436; 82533; 83735; 83930; 83935; 84100; 84133; 84300; 84439; 84443; 84481; 85025; 87899; 94640; 96374; A4216; G8987-GO-CI; G8988-GO-CI; J0696; J1650; J1956; J3370; J3411; J7042; J7050; J7131; J7620

== ENCOUNTER 2017-05-22 09:11 | Outpatient (CLI) | payer MEDICARE ==
--- NOTE | 2017-05-22 14:51 | RAD ---
CHEST PA AND LATERAL: Date: 05/22/17 HISTORY: 66-year-old male with history of preoperative evaluation. COMPARISON: 02/02/17. FINDINGS: Heart size is normal. The lungs are clear. No pneumonia, edema, or pleural effusion. Stable multiple lower thoracic vertebral body height loss. IMPRESSION: No acute intrathoracic disease. No evidence of pneumonia or other acute process. POS: [facility]
--- NOTE | 2017-05-27 08:44 | EKG ---
Test Reason : Blood Pressure : / mmHG Vent. Rate : 074 BPM Atrial Rate : 074 BPM P-R Int : 150 ms QRS Dur : 084 ms QT Int : 414 ms P-R-T Axes : 078 060 054 degrees QTc Int : 459 ms Sinus rhythm with Fusion complexes Otherwise normal ECG No previous ECGs available Confirmed by AIDAN URBAN, NORMA ([id number]) on 05/27/2017 8:44:45 AM Referred By: KESHIA Confirmed By:NORMA BERMUDEZ MD
== END 2017-05-22 09:12 | disposition home or self-care (01) ==
LOC: LABBT 09:11
PROVIDERS: ATTEND Orthopaedic Surgery
DX: Z01.818 Encounter for other preprocedural examination (principal); M17.12 Unilateral primary osteoarthritis, left knee
CPT/HCPCS: 71046; 80053; 87081; 93005; 93010

== ENCOUNTER 2017-05-29 09:34 | Outpatient (CLI) | payer MEDICARE ==
[2017-05-29 10:32] LABS: Bilirubin Negative (Negative); Blood, Urine Negative (Negative); Clarity CLEAR (Clear); Glucose, Urine (Dipstick) Negative (Negative); Leukocyte Negative (Negative); Nitrite Negative (Negative); Protein, Urine (Dipstick) Negative (Neg-Trace); Specific Gravity, Urine 1.008 (1.002-1.036); Urobilinogen 0.2 mg/dL (0.2-1.0); pH, Urine 6.5 (5.0-9.0)
[2017-05-29 10:33] LABS: #Eosinphils 0.2 thou/uL (0.0-0.7); #Lymphocytes 0.6 thou/uL (1.20-3.40); #Monocytes 0.9 thou/uL (0.11-0.59); #Neutrophils 4.5 thou/uL (1.40-6.50); %Basophils 0.3 % (0.0-1.0); %Eosinophils 2.7 % (0.0-10.0); %Lymphocytes 9.9 % (21.0-51.0); %Monocytes 14.7 % (0.0-10.0); %Neutrophils 72.4 % (42.0-75.0); Bacteria/HPF None Seen HPF (None Seen); Hemoglobin 12.5 g/dL (14.0-18.0); Hyaline Casts/LPF 0-3 HYALINE CAST LPF (0-3 Hyaline); Mean Corpuscular HGB CONC 34.5 g/dL (32.0-36.0); Mean Corpuscular Hemoglobin 31.4 pg (27.0-31.0); Mean Corpuscular Volume 90.9 fl (80.0-94.0); Mean Platelet Volume 5.7 fL (7.4-10.4); Platelet Count 356 thou/uL (130-400); RBC Distribution Width 11.8 % (11.5-14.5); RBC/HPF 0-3 HPF (0-3); Red Blood Cell (RBC) Count 3.99 mill/uL (4.70-6.10); Squamous Epithelial None Seen HPF (0-3); WBC/HPF None Seen HPF (0-3); White Blood Cell (WBC) Count 6.2 thou/uL (4.8-10.8)
[2017-05-29 10:41] LABS: Prothrombin Time 12.9 SEC (12.0-14.7)
[2017-05-29 10:46] LABS: Anion Gap 15 mmol/L (10-20); BUN (Urea Nitrogen) 11 mg/dL (8.4-25.7); Calc. Creatinine Clearance 0 mL/min (70-130); Calcium 9.3 mg/dL (7.8-10.44); Carbon Dioxide 22 mmol/L (23-31); Chloride 96 mmol/L (98-107); Estimated GFR-MDRD Greater than 90; Glucose 94 mg/dL (80-115); Potassium 4.4 mmol/L (3.5-5.1); Sodium 129 mmol/L (136-145)
[2017-05-30 15:10] LABS: Hemoglobin A1c 5.3 % (4.0-6.0)
== END 2017-05-29 09:35 | disposition home or self-care (01) ==
LOC: LABBT 09:34
PROVIDERS: ATTEND Orthopaedic Surgery
DX: Z01.818 Encounter for other preprocedural examination (principal); M17.0 Bilateral primary osteoarthritis of knee
CPT/HCPCS: 80048; 81001; 83036; 85025; 85610; 86850; 86900; 86901

== ENCOUNTER 2018-01-24 10:37 | Outpatient (CLI) | payer MEDICARE ==
[2018-01-24 12:18] LABS: INR-International Normal Ratio 0.9
[2018-01-24 12:46] LABS: Anion Gap 15 mmol/L (10-20); BUN (Urea Nitrogen) 11 mg/dL (8.4-25.7); Calc. Creatinine Clearance 0 mL/min (70-130); Calcium 9.5 mg/dL (7.8-10.44); Carbon Dioxide 25 mmol/L (23-31); Chloride 91 mmol/L (98-107); Estimated GFR-MDRD 88; Glucose 114 mg/dL (80-115); Potassium 4.3 mmol/L (3.5-5.1); Sodium 127 mmol/L (136-145)
[2018-01-24 12:47] LABS: Band 6 % (5-11); Hemoglobin 13.9 g/dL (14.0-18.0); Lymphocytes 16 % (21-51); MDiff Complete? YES; Mean Corpuscular HGB CONC 33.9 g/dL (32.0-36.0); Mean Corpuscular Hemoglobin 30.5 pg (27.0-31.0); Mean Corpuscular Volume 89.9 fL (78.0-98.0); Mean Platelet Volume 6.1 fL (7.4-10.4); Monocytes 12 % (0-10); Neutrophil 60 % (42-75); Platelet Count 271 thou/uL (130-400); RBC Distribution Width 12.7 % (11.5-14.5); RBC Morphology Normal; Reactive Lymphocytes 5 % (0-10); Red Blood Cell (RBC) Count 4.57 mill/uL (4.70-6.10); White Blood Cell (WBC) Count 3.7 thou/uL (4.8-10.8)
== END 2018-01-24 10:38 | disposition home or self-care (01) ==
LOC: LABBT 10:37
PROVIDERS: ATTEND Orthopaedic Surgery
DX: Z01.818 Encounter for other preprocedural examination (principal); Z96.651 Presence of right artificial knee joint
CPT/HCPCS: 80048; 85025; 85610; 87081; 93005; 93010

== ENCOUNTER 2018-01-30 06:48 | Day surgery (SDC) | payer MEDICARE ==
[2018-01-24 11:18] VITALS: BMI 22.4
[2018-01-30] MEDS ORDERED: Zolpidem Tartrate 5 MG TAB PO PRN ×2 (07:34→08:00)
[2018-01-30] MEDS ORDERED: Promethazine HCl 25 MG/ML VIAL IM PRN ×3 (07:34→09:30)
[2018-01-30] MEDS ORDERED: diphenhydrAMINE 25 MG CAP PO PRN (07:34)
[2018-01-30] MEDS ORDERED: Ondansetron PF 4 MG/2 ML Vial IVP PRN ×2 (07:34→08:00)
[2018-01-30] MEDS ORDERED: Acetaminophen 325 MG TAB PO PRN (07:34)
[2018-01-30] MEDS ORDERED: HYDROcodone/Acetaminophen 10/325 mg Tablet PO PRN ×3 (07:34→08:00)
[2018-01-30] MEDS ORDERED: CEFAZOLIN/Water 2 GM/20 ML SYRINGE SLOW IVP SCH (07:45)
[2018-01-30] MEDS ORDERED: Sodium Chloride 0.9% 100 ML ONE (07:51)
[2018-01-30] MEDS ORDERED: CEFAZOLIN 2 GM/50 ML BAG ONE (07:51)
[2018-01-30] MEDS ORDERED: Tranexamic Acid 1,000 MG/10 ML VIAL ONE (07:51)
[2018-01-30] MEDS ORDERED: Fentanyl 100 MCG/2 ML VIAL ONE ×2 (07:52→09:03)
[2018-01-30] MEDS ORDERED: Midazolam HCl 2 mg/2 ml Vial ONE (07:52)
[2018-01-30] MEDS ORDERED: traMADol HCl 50 MG TAB PO PRN ×2 (08:00)
[2018-01-30] MEDS ORDERED: Ropivacaine HCl/PF 250 ML in Premix Bag 1 BAG NERVE BLCK SCH (08:00)
[2018-01-30] MEDS ORDERED: Fentanyl 100 MCG/2 ML VIAL IV PRN (08:02)
[2018-01-30] MEDS ORDERED: Promethazine HCl 25 MG/ML VIAL SLOW IVP PRN (09:30)
[2018-01-30] MEDS ORDERED: Ondansetron HCl/PF 4 MG/2 ML Vial IVP PRN (09:30)
--- NOTE | 2018-01-30 11:26 | RAD ---
RIGHT KNEE TWO VIEWS: History: Status post arthroplasty. FINDINGS: There are findings compatible with a total right knee arthroplasty. Alignment is near anatomic. IMPRESSION: Expected post-operative changes. POS: [facility]
[2018-01-30] MEDS: Sodium Chloride 0.9% 1,000 ML IV SCH ×2 (12:41→21:01)
[2018-01-30] MEDS: Vit A,C & E/Lutein/Minerals Tablet PO SCH ×2 (12:41→21:02)
[2018-01-30] MEDS: Tamsulosin HCl 0.4 MG CAP PO SCH (12:41)
[2018-01-30] MEDS ORDERED: hydrALAZINE 20 MG/ML VIAL SLOW IVP PRN (13:55)
[2018-01-30] MEDS ORDERED: Diabetic Tussin 200 MG/10 ML UDCUP PO PRN (13:55)
[2018-01-30] MEDS ORDERED: Artificial Tears 18 DROP/0.9 ML EA EYE PRN (13:55)
[2018-01-30] MEDS ORDERED: Loperamide HCl 2 MG CAP PO PRN (13:55)
[2018-01-30] MEDS ORDERED: Eucerin (Mineral Oil/Petrolatum,White) 30 gm Jar TOP PRN (13:55)
[2018-01-30] MEDS ORDERED: Sodium Chloride 0.65% Nasal 44 ML BOT EA NARE PRN (13:55)
[2018-01-30] MEDS: Ketorolac Tromethamine 30 MG/ML VIAL IVP SCH ×3 (13:56→23:54)
[2018-01-30] MEDS ORDERED: Ketorolac Tromethamine 30 MG/ML VIAL IVP SCH (14:00)
--- NOTE | 2018-01-30 14:17 | OP ---
DATE OF PROCEDURE: 01/30/2018 PREOPERATIVE DIAGNOSIS: End-stage tricompartmental osteoarthritis, right knee with degenerative genu valgum. POSTOPERATIVE DIAGNOSIS: End-stage tricompartmental osteoarthritis, right knee with degenerative genu valgum. PROCEDURE PERFORMED: Cemented cruciate-sparing, computer-assisted navigated, right total knee arthroplasty. SURGEON: Deondre Bassett MD DYNAMITE SHOOTER: Wyatt Walker PA-C ANESTHESIA: General via LMA augmented with indwelling femoral block and a single shot sciatic block. COMPONENTS USED: [employer] Triathlon size 6 cruciate-sparing cemented femoral component with a size 6 cruciate-sparing cemented primary femoral baseplate, 9 mm polyethylene fixed bearing insert, A35 patella button. TOURNIQUET TIME: 55 minutes. INPUT: 1 liter of crystalloid. OUTPUT: Not recorded. No Cabrera placed. ESTIMATED BLOOD LOSS: Less than 100. FINDINGS: End-stage severe degenerative tricompartmental disease, [id number] arthrosis, periarticular osteophyte formation, large serous effusion, hypertrophic synovium, and changes consistent with physiologic degenerative genu valgum. DRAINS: None. SPECIMENS: None. COMPLICATIONS: None. COUNTS: Correct. INDICATIONS FOR SURGERY: Merrill is a 67-year-old white male, who has had progressive right knee pain and problem with standing and walking for the last 5 to 7 years. He has failed conservative management and elected to proceed with total knee arthroplasty as definitive treatment of his pain. PROCEDURE IN DETAIL: After informed consent was obtained in the preoperative holding area, the patient was taken to the operative suite where general anesthesia was induced. Once adequate level of general anesthesia was obtained, the patient was positioned and a well-padded tourniquet was placed around the right proximal thigh. The right lower extremity was then prepped and draped in the usual sterile fashion. Prior to exsanguination, a time-out was called and all members of the surgical team agreed upon site, surgeon, and patient. The extremity was then exsanguinated and the tourniquet was raised. A midline longitudinal incision was then made directly over the patella extending 2 fingerbreadths above the superior pole of the patella and 2 fingerbreadths inferior to the inferior patellar pole of the patella. Deeper subcutaneous layers were dissected sharply and local bleeding was controlled with Bovie electrocautery. A quad tendon longitudinal split was then made sharply and a median parapatellar arthrotomy was carried out both sharp and with Bovie electrocautery, carried down to 1 fingerbreadth medial to the tibial tubercle. The knee was then placed into flexion and the patella was everted nicely, and a copious fat pad ectomy was performed, allowing for greater exposure of the tibia. The computer-assisted distal femoral fiducial was then placed and pinned firmly, and the distal femoral cutting guide was pinned firmly into place. The oscillating saw was then used to remove the appropriate amount of bone. The 4-in-1 cutting block was then placed on the distal femur and the oscillating saw was used to remove the appropriate amount of bone off the anterior, posterior, and chamfer cuts. After completion of bone cuts, the anterior cruciate ligament was resected sharply and the posterior cruciate ligament retractor was placed and the tibia was subluxed for better exposure. Partial meniscectomies were carried out, and the tibial computer-assisted fiducial was pinned, and the cutting guide was placed. Oscillating saw was then used to remove the bone, with Hohmann retractors used to take care and protect the collateral ligaments. After the tibial resection was performed, a laminar solution lead was placed in between the freshened bone cuts. The knee placed at 90 degrees and further bilateral meniscectomies were carried out, and the curved osteotome and curettage were used to remove any excess bone spurs in the posterior compartment. The trial femoral component, tibial baseplate were placed with the appropriate polyethylene trial insert with an appropriate polyethylene spacer and patellar button. The knee was taken through full range of motion with flexion and extension from 0 to 90 degrees and patellar broach squarely in the trochlea without any squinting or subluxation noted. The knee was also stable to varus and valgus stressing at 0, 15, 45, and 90 degrees of flexion. The drawer was negative. All trial components were then removed and the keel punch was used to provide the appropriate defect in the tibia with a mallet. The freshened bone cuts were copiously irrigated with pulsatile lavage of about 1.5 L to remove all excess debris. The freshened bone cuts were then dried with suction and lap sponge. The knee was placed in flexion and retractors were placed to provide access to all bone cuts. Tobramycin-impregnated methyl methacrylate cement was then placed on the freshened bone cuts and implants which were malleted firmly into place. Curettage and [place] elevators were used to remove any excess bone cement. The knee was placed into full extension and the patellar button was placed under compression, and the cement was allowed to cure. Once completed, the components were again taken through full range of motion and copious irrigation of the knee was carried out with another liter of normal saline. All components were inspected fully with full range of motion and varus and valgus stressing. There was no laxity noted and full extension was observed clinically. Primary closure was accomplished with #2 interrupted Vicryl stitch of the arthrotomy defect. This was oversewn with a #2 running Quill barbed stitch. The subcutaneous layer was then closed with a running 0 barbed Monocryl stitch and skin closure accomplished with a running subcuticular 3-0 Monocryl barbed Quill stitch and augmented with cement on the skin. Tourniquet was lowered. Good spontaneous return of distal pulses was noted clinically and a sterile dressing was applied to the incision. The procedure was terminated without any complications. The patient was awakened in the operative suite and taken to the recovery room in stable condition. Job ID: [id number]
--- NOTE | 2018-01-30 14:39 | PDOC.PN ---
- Subjective Encounter Start Date: 01/30/18 Encounter Start Time: 14:15 -: old records requested/rev Patient seen and examined. No new complaints. - Objective Resuscitation Status - Order Detail: 01/30/18 13:55 Resuscitation Status Routine Resuscitation Status: FULL: Full Resuscitation MAR Reviewed: Yes Vital Signs & Weight: Vital Signs (12 hours) Temp Pulse Resp BP Pulse Ox 01/30/18 11:45 97.3 F L 80 20 132/82 94 L Weight Weight 165 lb I&O: 01/29/18 01/30/18 01/31/18 06:59 06:59 06:59 Output Total 500 Balance -500 Additional Labs: old meditech report reviewed Radiology Reviewed by me: Yes Phys Exam - Physical Examination Constitutional: NAD HEENT: PERRLA, moist MMs, sclera anicteric Neck: no JVD, supple Respiratory: no wheezing, no rales, no rhonchi Cardiovascular: RRR, no significant murmur, no rub Gastrointestinal: soft, non-tender, no distention, positive bowel sounds Musculoskeletal: no edema, pulses present left knee with dressing, nerve block in place Neurological: non-focal, normal sensation, moves all 4 limbs Psychiatric: normal affect, A&O x 3 Skin: no rash, normal turgor Dx/Plan (1) Status post total right knee replacement Code(s): Z96.651 - PRESENCE OF RIGHT ARTIFICIAL KNEE JOINT Status: Acute (2) Anemia, normocytic normochromic Code(s): D64.9 - ANEMIA, UNSPECIFIED Status: Chronic (3) BPH (benign prostatic hyperplasia) Code(s): N40.0 - BENIGN PROSTATIC HYPERPLASIA WITHOUT LOWER URINRY TRACT SYMP Status: Chronic (4) GERD (gastroesophageal reflux disease) Code(s): K21.9 - GASTRO-ESOPHAGEAL REFLUX DISEASE WITHOUT ESOPHAGITIS Status: Chronic (5) Hypertension Code(s): I10 - ESSENTIAL (PRIMARY) HYPERTENSION Status: Chronic - Plan cont current plan of care, plan discussed w/ family * home medication reconciled * medication reviewed as below * symptomatic treatment * aspirin for DVT prophylaxis * nerve block as per anesthesia * PT/OT as per [facility], [place], operated by [facility] protocol * discussed with family * pain controlled. Review of Systems - Review of Systems ENT: negative: Ear Pain, Ear Discharge, Nose Pain, Nose Discharge, Nose Congestion, Mouth Pain, Mouth Swelling, Throat Pain, Throat Swelling, Other Respiratory: negative: Cough, Dry, Shortness of Breath, Hemoptysis, SOB with Excertion, Pleuritic Pain, Sputum, Wheezing Cardiovascular: negative: chest pain, palpitations, orthopnea, paroxysmal nocturnal dyspnea, edema, light headedness, other Gastrointestinal: negative: Nausea, Vomiting, Abdominal Pain, Diarrhea, Constipation, Melena, Hematochezia, Other Genitourinary: negative: Dysuria, Frequency, Incontinence, Hematuria, Retention , Other Musculoskeletal: negative: Neck Pain, Shoulder Pain, Arm Pain, Back Pain, Hand Pain, Leg Pain, Foot Pain, Other - Medications/Allergies Allergies/Adverse Reactions: Allergies Allergy/AdvReac Type Severity Reaction Status Date / Time No Known Drug Allergies Allergy Verified 01/30/18 12:18 Medications: Current Medications Acetaminophen (Tylenol) 650 mg PO Q4H PRN PRN Reason: Headache/Fever or Pain Hydrocodone Bitart/Acetaminophen ([place] 10/325) 1 tab PO Q4H PRN PRN Reason: Pain (1-3) Hydrocodone Bitart/Acetaminophen ([place] 10/325) 2 tab PO Q4H PRN PRN Reason: PAIN (4-6) Amlodipine/Benazepril HCl (Lotrel 5/10) 2 cap PO QAM [facility] Amoxicillin/Clavulanate Potassium (Augmentin) 500 mg PO BID [facility] Stop: 01/31/18 09:01 Artificial Tears (Tears Naturale) 2 drop EA EYE PRN PRN PRN Reason: Dry Eyes Aspirin (Ecotrin) 81 mg PO BID [facility] Diphenhydramine HCl (Benadryl) 25 mg PO Q6H PRN PRN Reason: Itching Fentanyl (Sublimaze) 50 mcg IV Q1H PRN PRN Reason: BREAKTHRU PAIN Ferrous Gluconate (Fergon) 324 mg PO BID [facility] Guaifenesin (Robitussin Sf) 200 mg PO Q4H PRN PRN Reason: Cough Hydralazine HCl (Apresoline) 10 mg SLOW IVP Q4H PRN PRN Reason: SBP > 180 and HR < 70 Sodium Chloride (Normal Saline 0.9%) 1,000 mls @ 100 mls/hr IV .Q10H [facility] Last Admin: 01/30/18 12:41 Dose: Not Given Ropivacaine 250 ml/ Device 250 mls @ 10 mls/hr NERVE BLCK INF [facility] Cefazolin Sodium/Dextrose 2 gm (/ Device) 50 mls @ 100 mls/hr IVPB 1500,2300 [facility] Stop: 01/30/18 23:29 Iron/Minerals/Multivitamins (Theragran M) 1 tab PO DAILY [facility] Ketorolac Tromethamine (Toradol) 15 mg IVP Q6HR [facility] Stop: 02/01/18 06:01 Last Admin: 01/30/18 13:56 Dose: Not Given Loperamide HCl (Imodium) 2 mg PO PRN PRN PRN Reason: Diarrhea/Loose Stools Metoprolol Succinate (Toprol Xl) 25 mg PO QAM [facility] Last Admin: 01/30/18 12:42 Dose: Not Given Mineral Oil/White Petrolatum (Eucerin Cream) 0 gm TOP BIDPRN PRN PRN Reason: Dry Skin Multivitamins/Minerals (Ocuvite With Lutein) 1 tab PO BID [facility] Last Admin: 01/30/18 12:41 Dose: Not Given Ondansetron HCl (Zofran) 4 mg IVP Q6H PRN PRN Reason: Nausea/Vomiting Pantoprazole Sodium (Protonix) 40 mg PO HS [facility] Promethazine HCl (Phenergan) 12.5 mg IM Q4H PRN PRN Reason: Nausea Senna/Docusate Sodium (Senokot S) 2 tab PO BID [facility] Sodium Chloride (Flush - Normal Saline) 10 ml IVF PRN PRN PRN Reason: Saline Flush Sodium Chloride ([place] Nasal [place] 0.65%) 0 ml EA NARE QIDPRN PRN PRN Reason: Nasal Congestion Tamsulosin HCl (Flomax) 0.4 mg PO DAILY [facility] Last Admin: 01/30/18 12:41 Dose: Not Given Tramadol HCl (Ultram) 50 mg PO Q6H PRN PRN Reason: Mild Pain (1-3) Tramadol HCl (Ultram) 100 mg PO Q6H PRN PRN Reason: Moderate Pain 4-6 Zolpidem Tartrate (Ambien) 5 mg PO HSPRN PRN PRN Reason: Insomnia
[2018-01-30] MEDS: CEFAZOLIN 2 GM/50 ML-DEXTROSE 2 GM in Premix Bag 1 BAG IVPB SCH ×2 (14:42→23:54)
[2018-01-30] MEDS ORDERED: Bupivacaine 0.25% HCL 30 ML VIAL ONE (15:27)
[2018-01-30] MEDS ORDERED: Ropivacaine 0.5% HCl/PF (150 MG/30 ML VIAL) ONE (15:27)
[2018-01-30] MEDS ORDERED: Ondansetron PF 4 MG/2 ML Vial ONE (18:35)
[2018-01-30] MEDS ORDERED: Lidocaine 1% PF 5 ML VIAL ONE (18:35)
[2018-01-30] MEDS ORDERED: PROPOFOL 200 MG/20 ML VIAL ONE (18:35)
[2018-01-30] MEDS ORDERED: Ketorolac Tromethamine 30 MG/ML VIAL ONE (18:35)
[2018-01-30] MEDS: Aspirin 81 mg Enteric Coated Tablet PO SCH (21:01)
[2018-01-30] MEDS: Amoxicillin/Potassium Clav 500 MG TAB PO SCH (21:01)
[2018-01-30] MEDS: HYDROcodone/Acetaminophen 10/325 mg Tablet PO PRN (21:04)
[2018-01-31] MEDS: HYDROcodone/Acetaminophen 10/325 mg Tablet PO PRN ×3 (05:07→20:42)
[2018-01-31] MEDS: Ketorolac Tromethamine 30 MG/ML VIAL IVP SCH ×3 (05:09→17:11)
[2018-01-31] MEDS: Sodium Chloride 0.9% 1,000 ML IV SCH ×2 (06:20→13:03)
[2018-01-31 07:27] LABS: Hemoglobin 9.2 g/dL (14.0-18.0); Mean Corpuscular HGB CONC 34.3 g/dL (32.0-36.0); Mean Corpuscular Volume 90.4 fL (78.0-98.0); Mean Platelet Volume 6.1 fL (7.4-10.4); Platelet Count 245 thou/uL (130-400); RBC Distribution Width 12.5 % (11.5-14.5); Red Blood Cell (RBC) Count 2.95 mill/uL (4.70-6.10); White Blood Cell (WBC) Count 9.8 thou/uL (4.8-10.8)
[2018-01-31] MEDS: Amlodipine 5 mg/Benazepril 10 mg CAP PO SCH (08:36)
[2018-01-31] MEDS: Vit A,C & E/Lutein/Minerals Tablet PO SCH ×2 (08:36→20:42)
[2018-01-31] MEDS: Amoxicillin/Potassium Clav 500 MG TAB PO SCH (08:37)
[2018-01-31] MEDS: Aspirin 81 mg Enteric Coated Tablet PO SCH ×2 (08:37→20:41)
[2018-01-31] MEDS: Tamsulosin HCl 0.4 MG CAP PO SCH (08:37)
[2018-01-31] MEDS: Multivitamin W/ Minerals 1 TAB PO SCH (08:37)
[2018-01-31] MEDS: Ferrous Gluconate 324 MG TAB PO SCH ×2 (08:37→20:41)
[2018-01-31] MEDS: Senokot S 8.6-50 MG TAB PO SCH ×2 (08:38→20:42)
--- NOTE | 2018-01-31 12:47 | PDOC.PN ---
- Subjective Encounter Start Date: 01/31/18 Encounter Start Time: 07:45 Patient seen and examined. No new complaints. No overnight events - Objective Resuscitation Status - Order Detail: 01/30/18 13:55 Resuscitation Status Routine Resuscitation Status: FULL: Full Resuscitation MAR Reviewed: Yes Vital Signs & Weight: Vital Signs (12 hours) Temp Pulse Resp BP Pulse Ox 01/31/18 11:15 97.4 F L 80 12 123/72 96 01/31/18 07:35 97.7 F 97 16 136/73 95 01/31/18 04:35 97.9 F 87 19 128/73 96 Weight Weight 165 lb I&O: 01/30/18 01/31/18 02/01/18 06:59 06:59 06:59 Intake Total 1100 Output Total 1100 Balance 0 Result Diagrams: 01/31/18 06:35 Phys Exam - Physical Examination Constitutional: NAD HEENT: PERRLA, moist MMs, sclera anicteric Neck: no JVD, supple Respiratory: no wheezing, no rales, no rhonchi Cardiovascular: RRR, no significant murmur, no rub Gastrointestinal: soft, non-tender, no distention, positive bowel sounds Musculoskeletal: no edema, pulses present right Knee with dressing, nerve block in place Neurological: non-focal, normal sensation, moves all 4 limbs Lymphatic: no nodes Psychiatric: normal affect, A&O x 3 Skin: no rash, normal turgor Dx/Plan (1) Status post total right knee replacement Code(s): Z96.651 - PRESENCE OF RIGHT ARTIFICIAL KNEE JOINT Status: Acute (2) Anemia, normocytic normochromic Code(s): D64.9 - ANEMIA, UNSPECIFIED Status: Chronic (3) BPH (benign prostatic hyperplasia) Code(s): N40.0 - BENIGN PROSTATIC HYPERPLASIA WITHOUT LOWER URINRY TRACT SYMP Status: Chronic (4) GERD (gastroesophageal reflux disease) Code(s): K21.9 - GASTRO-ESOPHAGEAL REFLUX DISEASE WITHOUT ESOPHAGITIS Status: Chronic (5) Hypertension Code(s): I10 - ESSENTIAL (PRIMARY) HYPERTENSION Status: Chronic - Plan cont current plan of care, plan discussed w/ family, PT/OT * medication reviewed as below * symptomatic treatment * nerve block as per anesthesia * continue PT/OT as per [facility] protocol * continue aspirin for DVT prophylaxis as per protocol * continue protonix for GI prophylaxis * code status- full code. * pain controlled * medically stable. Review of Systems - Review of Systems ENT: negative: Ear Pain, Ear Discharge, Nose Pain, Nose Discharge, Nose Congestion, Mouth Pain, Mouth Swelling, Throat Pain, Throat Swelling, Other Respiratory: negative: Cough, Dry, Shortness of Breath, Hemoptysis, SOB with Excertion, Pleuritic Pain, Sputum, Wheezing Cardiovascular: negative: chest pain, palpitations, orthopnea, paroxysmal nocturnal dyspnea, edema, light headedness, other Gastrointestinal: negative: Nausea, Vomiting, Abdominal Pain, Diarrhea, Constipation, Melena, Hematochezia, Other Genitourinary: negative: Dysuria, Frequency, Incontinence, Hematuria, Retention , Other Musculoskeletal: negative: Neck Pain, Shoulder Pain, Arm Pain, Back Pain, Hand Pain, Leg Pain, Foot Pain, Other - Medications/Allergies Allergies/Adverse Reactions: Allergies Allergy/AdvReac Type Severity Reaction Status Date / Time No Known Drug Allergies Allergy Verified 01/30/18 12:18 Medications: Current Medications Acetaminophen (Tylenol) 650 mg PO Q4H PRN PRN Reason: Headache/Fever or Pain Hydrocodone Bitart/Acetaminophen ([place] 10/325) 1 tab PO Q4H PRN PRN Reason: Pain (1-3) Hydrocodone Bitart/Acetaminophen ([place] 10/325) 2 tab PO Q4H PRN PRN Reason: PAIN (4-6) Last Admin: 01/31/18 09:25 Dose: 2 tab Amlodipine/Benazepril HCl (Lotrel 5/10) 2 cap PO QAM [facility] Last Admin: 01/31/18 08:36 Dose: 2 cap Artificial Tears (Tears Naturale) 2 drop EA EYE PRN PRN PRN Reason: Dry Eyes Aspirin (Ecotrin) 81 mg PO BID [facility] Last Admin: 01/31/18 08:37 Dose: 81 mg Diphenhydramine HCl (Benadryl) 25 mg PO Q6H PRN PRN Reason: Itching Fentanyl (Sublimaze) 50 mcg IV Q1H PRN PRN Reason: BREAKTHRU PAIN Ferrous Gluconate (Fergon) 324 mg PO BID [facility] Last Admin: 01/31/18 08:37 Dose: 324 mg Guaifenesin (Robitussin Sf) 200 mg PO Q4H PRN PRN Reason: Cough Hydralazine HCl (Apresoline) 10 mg SLOW IVP Q4H PRN PRN Reason: SBP > 180 and HR < 70 Sodium Chloride (Normal Saline 0.9%) 1,000 mls @ 100 mls/hr IV .Q10H [facility] Last Admin: 01/31/18 06:20 Dose: Not Given Ropivacaine 250 ml/ Device 250 mls @ 10 mls/hr NERVE BLCK INF [facility] Last Admin: 01/31/18 12:35 Dose: 250 mls Iron/Minerals/Multivitamins (Theragran M) 1 tab PO DAILY [facility] Last Admin: 01/31/18 08:37 Dose: 1 tab Ketorolac Tromethamine (Toradol) 15 mg IVP Q6HR [facility] Stop: 02/01/18 06:01 Last Admin: 01/31/18 11:59 Dose: 15 mg Loperamide HCl (Imodium) 2 mg PO PRN PRN PRN Reason: Diarrhea/Loose Stools Metoprolol Succinate (Toprol Xl) 25 mg PO QAM [facility] Last Admin: 01/31/18 08:38 Dose: 25 mg Mineral Oil/White Petrolatum (Eucerin Cream) 0 gm TOP BIDPRN PRN PRN Reason: Dry Skin Multivitamins/Minerals (Ocuvite With Lutein) 1 tab PO BID [facility] Last Admin: 01/31/18 08:36 Dose: 1 tab Ondansetron HCl (Zofran) 4 mg IVP Q6H PRN PRN Reason: Nausea/Vomiting Pantoprazole Sodium (Protonix) 40 mg PO [facility] Last Admin: 01/30/18 21:02 Dose: 40 mg Promethazine HCl (Phenergan) 12.5 mg IM Q4H PRN PRN Reason: Nausea Senna/Docusate Sodium (Senokot S) 2 tab PO BID [facility] Last Admin: 01/31/18 08:38 Dose: 2 tab Sodium Chloride (Flush - Normal Saline) 10 ml IVF PRN PRN PRN Reason: Saline Flush Sodium Chloride ([place] Nasal [place] 0.65%) 0 ml EA NARE QIDPRN PRN PRN Reason: Nasal Congestion Tamsulosin HCl (Flomax) 0.4 mg PO DAILY [facility] Last Admin: 01/31/18 08:37 Dose: 0.4 mg Tramadol HCl (Ultram) 50 mg PO Q6H PRN PRN Reason: Mild Pain (1-3) Tramadol HCl (Ultram) 100 mg PO Q6H PRN PRN Reason: Moderate Pain 4-6 Zolpidem Tartrate (Ambien) 5 mg PO HSPRN PRN PRN Reason: Insomnia
[2018-02-01] MEDS: Sodium Chloride 0.9% 1,000 ML IV SCH ×2 (00:09→10:51)
[2018-02-01] MEDS: Ketorolac Tromethamine 30 MG/ML VIAL IVP SCH ×2 (00:46→05:20)
[2018-02-01] MEDS: HYDROcodone/Acetaminophen 10/325 mg Tablet PO PRN ×2 (00:50→07:56)
[2018-02-01 07:46] LABS: Hemoglobin 8.5 g/dL (14.0-18.0); Mean Corpuscular HGB CONC 35.6 g/dL (32.0-36.0); Mean Corpuscular Hemoglobin 32.3 pg (27.0-31.0); Mean Corpuscular Volume 90.7 fL (78.0-98.0); Mean Platelet Volume 5.9 fL (7.4-10.4); Platelet Count 234 thou/uL (130-400); RBC Distribution Width 12.3 % (11.5-14.5); Red Blood Cell (RBC) Count 2.62 mill/uL (4.70-6.10); White Blood Cell (WBC) Count 9.3 thou/uL (4.8-10.8)
[2018-02-01] MEDS: Amlodipine 5 mg/Benazepril 10 mg CAP PO SCH (07:53)
[2018-02-01] MEDS: Senokot S 8.6-50 MG TAB PO SCH (07:54)
[2018-02-01] MEDS: Tamsulosin HCl 0.4 MG CAP PO SCH (07:54)
[2018-02-01] MEDS: Multivitamin W/ Minerals 1 TAB PO SCH (07:54)
[2018-02-01] MEDS: Ferrous Gluconate 324 MG TAB PO SCH (07:55)
[2018-02-01] MEDS: Aspirin 81 mg Enteric Coated Tablet PO SCH (07:56)
[2018-02-01] MEDS: Vit A,C & E/Lutein/Minerals Tablet PO SCH (07:56)
--- NOTE | 2018-02-01 09:09 | PDOC.PN ---
- Subjective Encounter Start Date: 02/01/18 Encounter Start Time: 08:20 Patient seen and examined. No new complaints. No overnight events - Objective Resuscitation Status - Order Detail: 01/30/18 13:55 Resuscitation Status Routine Resuscitation Status: FULL: Full Resuscitation MAR Reviewed: Yes Vital Signs & Weight: Vital Signs (12 hours) Temp Pulse Resp BP BP Pulse Ox 02/01/18 07:47 98.5 F 95 18 115/70 95 02/01/18 04:00 97.8 F 86 18 106/65 96 02/01/18 00:00 98.8 F 101 H 18 124/70 96 Weight Weight 165 lb I&O: 01/31/18 02/01/18 02/02/18 06:59 06:59 06:59 Intake Total 1100 1040 Output Total 1100 1200 Balance 0 -160 Result Diagrams: 02/01/18 07:21 Phys Exam - Physical Examination Constitutional: NAD HEENT: PERRLA, moist MMs, sclera anicteric Neck: no JVD, supple Respiratory: no wheezing, no rales, no rhonchi Cardiovascular: RRR, no significant murmur, no rub Gastrointestinal: soft, non-tender, no distention, positive bowel sounds Musculoskeletal: no edema, pulses present Neurological: non-focal, normal sensation Psychiatric: normal affect, A&O x 3 Skin: no rash, normal turgor Dx/Plan (1) Status post total right knee replacement Code(s): Z96.651 - PRESENCE OF RIGHT ARTIFICIAL KNEE JOINT Status: Acute (2) Anemia, normocytic normochromic Code(s): D64.9 - ANEMIA, UNSPECIFIED Status: Chronic (3) BPH (benign prostatic hyperplasia) Code(s): N40.0 - BENIGN PROSTATIC HYPERPLASIA WITHOUT LOWER URINRY TRACT SYMP Status: Chronic (4) GERD (gastroesophageal reflux disease) Code(s): K21.9 - GASTRO-ESOPHAGEAL REFLUX DISEASE WITHOUT ESOPHAGITIS Status: Chronic (5) Hypertension Code(s): I10 - ESSENTIAL (PRIMARY) HYPERTENSION Status: Chronic - Plan cont current plan of care, PT/OT * medication reviewed as below * symptomatic treatment * see my discharge summery * will sign off. Review of Systems - Review of Systems ENT: negative: Ear Pain, Ear Discharge, Nose Pain, Nose Discharge, Nose Congestion, Mouth Pain, Mouth Swelling, Throat Pain, Throat Swelling, Other Respiratory: negative: Cough, Dry, Shortness of Breath, Hemoptysis, SOB with Excertion, Pleuritic Pain, Sputum, Wheezing Cardiovascular: negative: chest pain, palpitations, orthopnea, paroxysmal nocturnal dyspnea, edema, light headedness, other Gastrointestinal: negative: Nausea, Vomiting, Abdominal Pain, Diarrhea, Constipation, Melena, Hematochezia, Other Genitourinary: negative: Dysuria, Frequency, Incontinence, Hematuria, Retention , Other Musculoskeletal: negative: Neck Pain, Shoulder Pain, Arm Pain, Back Pain, Hand Pain, Leg Pain, Foot Pain, Other - Medications/Allergies Allergies/Adverse Reactions: Allergies Allergy/AdvReac Type Severity Reaction Status Date / Time No Known Drug Allergies Allergy Verified 01/30/18 12:18 Medications: Current Medications Acetaminophen (Tylenol) 650 mg PO Q4H PRN PRN Reason: Headache/Fever or Pain Hydrocodone Bitart/Acetaminophen ([place] 10/325) 1 tab PO Q4H PRN PRN Reason: Pain (1-3) Hydrocodone Bitart/Acetaminophen ([place] 10/325) 2 tab PO Q4H PRN PRN Reason: PAIN (4-6) Last Admin: 02/01/18 07:56 Dose: 2 tab Amlodipine/Benazepril HCl (Lotrel 5/10) 2 cap PO QAM [facility] Last Admin: 02/01/18 07:53 Dose: 2 cap Artificial Tears (Tears Naturale) 2 drop EA EYE PRN PRN PRN Reason: Dry Eyes Aspirin (Ecotrin) 81 mg PO BID [facility] Last Admin: 02/01/18 07:56 Dose: 81 mg Diphenhydramine HCl (Benadryl) 25 mg PO Q6H PRN PRN Reason: Itching Fentanyl (Sublimaze) 50 mcg IV Q1H PRN PRN Reason: BREAKTHRU PAIN Ferrous Gluconate (Fergon) 324 mg PO BID [facility] Last Admin: 02/01/18 07:55 Dose: 324 mg Guaifenesin (Robitussin Sf) 200 mg PO Q4H PRN PRN Reason: Cough Hydralazine HCl (Apresoline) 10 mg SLOW IVP Q4H PRN PRN Reason: SBP > 180 and HR < 70 Sodium Chloride (Normal Saline 0.9%) 1,000 mls @ 100 mls/hr IV .Q10H [facility] Last Admin: 02/01/18 00:09 Dose: Not Given Ropivacaine 250 ml/ Device 250 mls @ 10 mls/hr NERVE BLCK INF [facility] Last Admin: 01/31/18 12:35 Dose: 250 mls Iron/Minerals/Multivitamins (Theragran M) 1 tab PO DAILY [facility] Last Admin: 02/01/18 07:54 Dose: 1 tab Loperamide HCl (Imodium) 2 mg PO PRN PRN PRN Reason: Diarrhea/Loose Stools Metoprolol Succinate (Toprol Xl) 25 mg PO QAM [facility] Last Admin: 02/01/18 07:54 Dose: 25 mg Mineral Oil/White Petrolatum (Eucerin Cream) 0 gm TOP BIDPRN PRN PRN Reason: Dry Skin Multivitamins/Minerals (Ocuvite With Lutein) 1 tab PO BID [facility] Last Admin: 02/01/18 07:56 Dose: 1 tab Ondansetron HCl (Zofran) 4 mg IVP Q6H PRN PRN Reason: Nausea/Vomiting Pantoprazole Sodium (Protonix) 40 mg PO HS [facility] Last Admin: 01/31/18 20:41 Dose: 40 mg Promethazine HCl (Phenergan) 12.5 mg IM Q4H PRN PRN Reason: Nausea Senna/Docusate Sodium (Senokot S) 2 tab PO BID [facility] Last Admin: 02/01/18 07:54 Dose: 2 tab Sodium Chloride (Flush - Normal Saline) 10 ml IVF PRN PRN PRN Reason: Saline Flush Last Admin: 02/01/18 05:20 Dose: 10 ml Sodium Chloride ([place] Nasal [place] 0.65%) 0 ml EA NARE QIDPRN PRN PRN Reason: Nasal Congestion Tamsulosin HCl (Flomax) 0.4 mg PO DAILY [facility] Last Admin: 02/01/18 07:54 Dose: 0.4 mg Tramadol HCl (Ultram) 50 mg PO Q6H PRN PRN Reason: Mild Pain (1-3) Tramadol HCl (Ultram) 100 mg PO Q6H PRN PRN Reason: Moderate Pain 4-6 Zolpidem Tartrate (Ambien) 5 mg PO HSPRN PRN PRN Reason: Insomnia
--- NOTE | 2018-02-01 10:19 | DIS ---
DATE OF ADMISSION: 01/30/2018 DATE OF DISCHARGE: 02/01/2018 PRIMARY CARE PHYSICIAN: Dr. Cindy Piper. DISCHARGE DISPOSITION: Home. PRIMARY DISCHARGE DIAGNOSIS: Status post right total knee replacement. SECONDARY DISCHARGE DIAGNOSES: Normocytic normochromic anemia, benign enlargement of prostate, gastroesophageal reflux disease, hypertension. PRIMARY PROCEDURE/OPERATION: Right total knee replacement. RADIOLOGICAL INVESTIGATION: Knee x-ray. SIGNIFICANT LABORATORY DATA: WBC 9.3, hemoglobin 8.5, platelets 234. DISCHARGE MEDICATIONS: 1. Amlodipine with benazepril 10/20 one capsule daily. 2. Augmentin 1 tablet twice daily, one day still left. 3. Nexium 40 mg p.o. daily. 4. Metoprolol-XL 25 mg daily. 5. Flomax 0.4 mg daily. 6. Ocuvite one capsule b.i.d. 7. Aspirin 81 mg p.o. b.i.d. for DVT prophylaxis. 8. [place] 10 one or two tablets q.4 hourly p.r.n. CONTRAINDICATION: None. CODE STATUS: Full code. INPATIENT PROGRAMMING MANAGER: Dr. Bassett was primary. [employer] was consulted for medical comanagement. TEST RESULTS PENDING ON DISCHARGE: None. ALLERGIES: NO KNOWN DRUG ALLERGIES. DISCHARGE PLAN: Posthospital, the patient will follow up with Dr. Bassett on February 20, 2018 at 9:15 a.m. The patient will follow up with primary care physician. HOSPITAL COURSE: A 67-year-old male, who was electively admitted for right total knee replacement which was done by Dr. Bassett on January 30, 2018. Postoperatively, [employer] was consulted for medical comanagement. The patient's all medical problems remained stable. We continued his home medication while in the hospital as well as on discharge. He was given aspirin for DVT prophylaxis. He had no block while in the hospital. The patient is overall medically stable for discharge. The patient is seen and examined at bedside today. Please see my progress note from today for further details. Job ID: [id number]
[2018-02-01 12:12] VITALS: BP 106/67; TEMP 97.1
== END 2018-02-01 13:50 | disposition home or self-care (01) ==
LOC: SDC 06:48 → SJJU 11:48 → SDC 02-01 13:50
PROVIDERS: ATTEND Orthopaedic Surgery
PROC: 0SRC0J9 Replacement of Right Knee Joint with Synthetic Substitute, Cemented, Open Approach (ICD-10-PCS; principal; 2018-01-30)
PROC: 8E0YXBZ Computer Assisted Procedure of Lower Extremity (ICD-10-PCS; 2018-01-30)
DX: M17.11 Unilateral primary osteoarthritis, right knee (principal); M21.161 Varus deformity, not elsewhere classified, right knee; D64.9 Anemia, unspecified; N40.0 Benign prostatic hyperplasia without lower urinary tract symptoms; K21.9 Gastro-esophageal reflux disease without esophagitis; I10 Essential (primary) hypertension; F10.11 Alcohol abuse, in remission; Z79.899 Other long term (current) drug therapy; Z96.652 Presence of left artificial knee joint
CPT/HCPCS: 20985; 27447; 73560; 85027; 97116 ×3; 97139 ×3; 97150 ×2; C1713; C1776; G8978; G8979; 36415; J1885; J2001; J2250; J2405; J2704; J2795; J3010; J3370; J7050; S0020

== ENCOUNTER 2020-07-26 21:59 | Emergency (ER) | payer MEDICARE ==
[2020-07-26] MEDS ORDERED: Rocuronium Bromide 10 MG/ML (10ML VIAL) ONE (22:08)
[2020-07-26] MEDS ORDERED: Propofol 1,000 MG/100 ML VIAL IV ONE (22:08)
[2020-07-26] MEDS ORDERED: Midazolam HCl 2 mg/2 ml Vial ONE (22:08)
[2020-07-26] MEDS ORDERED: levETIRAcetam in NS 100 ML ONE (22:08)
[2020-07-26] MEDS ORDERED: levETIRAcetam 500 MG/100 ML PREMIX BAG ONE (22:08)
[2020-07-26] MEDS ORDERED: Midazolam HCl 5 mg/ml Vial ONE ×2 (22:10→23:34)
[2020-07-26 22:34] LABS: Hemoglobin 13.8 g/dL (14.0-18.0); Mean Corpuscular HGB CONC 33.9 g/dL (32.0-36.0); Mean Corpuscular Hemoglobin 30.5 pg (27.0-31.0); Mean Corpuscular Volume 89.9 fL (78.0-98.0); Mean Platelet Volume 6.1 fL (7.4-10.4); Platelet Count 318 thou/uL (130-400); RBC Distribution Width 12.3 % (11.5-14.5); Red Blood Cell (RBC) Count 4.53 mill/uL (4.70-6.10)
[2020-07-26 22:41] LABS: Band 6 % (5-11); Eosinophils 3 % (0-10); Lymphocytes 13 % (21-51); MDiff Complete? YES; Monocytes 9 % (0-10); Neutrophil 69 % (42-75); Prothrombin Time 13.1 sec (12.0-14.7)
[2020-07-26 22:42] LABS: PTT 30.4 sec (22.9-36.1)
[2020-07-26 22:50] LABS: Bilirubin Negative (Negative); Blood, Urine 1+ (Negative); Clarity Clear (Clear); Glucose, Urine (Dipstick) Normal (Negative); Ketone, Urine Negative (Negative); Leukocyte Negative Leu/uL (Negative); Nitrite Negative (Negative); Protein, Urine (Dipstick) 30 mg/dL (Neg-Trace); Specific Gravity, Urine 1.008 (1.002-1.036); Squamous Epithelial None Seen HPF (0-3); Urobilinogen Normal mg/dL (Less than 2); pH, Urine 5.5 (5.0-9.0)
[2020-07-26] MEDS ORDERED: niCARdipine 20MG In NaCl 20 MG/200 ML BAG ONE (22:53)
[2020-07-26 22:59] LABS: Bacteria/HPF Rare-Few HPF (None Seen); Sperm/HPF 1+ HPF (None Seen); Transitional Epithelial 0-3 HPF (None Seen)
[2020-07-26 23:00] LABS: Amphetamine Not Detected (NotDetected); Barbiturates Screen Not Detected (NotDetected); Benzodiazepine Screen Not Detected (NotDetected); Cocaine Metabolite Screen Not Detected (NotDetected); Medtox Control Line Valid? VALID (VALID); Medtox Reader # READER 4; Methadone Not Detected (NotDetected); Methamphetamine Not Detected (NotDetected); Opiate Screen Not Detected (NotDetected); Oxycodone Screen Not Detected (NotDetected); Phencyclidine (PCP) Not Detected (NotDetected); THC/Cannabinoid Screen Not Detected (NotDetected); Tricyclic Screen Not Detected (NotDetected)
[2020-07-26 23:00] LABS: Acetaminophen Less than 6.0 mcg/mL (10.0-30.0); Alcohol Less than 10 mg/dL (Less than 10); CK (CPK) 639 U/L (30-200); Magnesium 1.8 mg/dL (1.6-2.6); Salicylate Less than 8.0 mg/dL (15.0-30.0)
[2020-07-26 23:35] LABS: ALT (SGPT) 22 U/L (8-55); AST (SGOT) 39 U/L (5-34); Albumin 4.4 g/dL (3.4-4.8); Alkaline Phosphatase 123 U/L (40-110); Anion Gap 27 mmol/L (10-20); BUN (Urea Nitrogen) 10 mg/dL (8.4-25.7); Bilirubin, Total 0.6 mg/dL (0.2-1.2); Calc. Creatinine Clearance 0 mL/min (70-130); Calcium 8.9 mg/dL (7.8-10.44); Carbon Dioxide 12 mmol/L (23-31); Chloride 87 mmol/L (98-107); Globulin 2.9 g/dL (2.4-3.5); Glucose 173 mg/dL (80-115); Lipase 43 U/L (8-78); Potassium 3.3 mmol/L (3.5-5.1); Protein, Total 7.3 g/dL (5.8-8.1); Sodium 123 mmol/L (136-145)
[2020-07-26] MEDS ORDERED: ADMIXTURE FEE IVPB SCH (23:59)
[2020-07-26] MEDS ORDERED: IN SODIUM CHLORIDE IVPB SCH (23:59)
[2020-07-27] MEDS ORDERED: Multivitamins, Adult 10 ML, Thiamine HCl 100 MG, Folic Acid 1 MG in Dextrose 5 %-0.45 %... IV SCH (00:15)
[2020-07-27] MEDS ORDERED: Midazolam HCl 5 mg/ml Vial ONE (00:17)
[2020-07-27 00:22] LABS: SARS-CoV-2 NAA Rapid Test Not Detected (NotDetected)
== END 2020-07-27 00:41 | disposition short-term general hospital (02) ==
LOC: ERS 21:59
DX: G40.901 Epilepsy, unspecified, not intractable, with status epilepticus (principal); I62.9 Nontraumatic intracranial hemorrhage, unspecified; Z20.822 Contact with and (suspected) exposure to COVID-19; I10 Essential (primary) hypertension; F17.200 Nicotine dependence, unspecified, uncomplicated
CPT/HCPCS: 70450; 71045; 72125; 80306; 80307; 82550; 83690; 83735; 84484; 85610; 85730; 93005; 94002; U0002; U0005; 31500; 51702; 80053; 81003; 81015; 84443; 85025; 96365; 96366; 96367; 96368; 96375; 96376; J1953; J2250; J2704; J3411; J3490; J7042; J7131

== ENCOUNTER 2021-01-17 08:57 | Outpatient (CLI) | payer MEDICARE | END 2021-01-17 08:58 | disposition home or self-care (01) | LOC: TBSIIMAG 08:57 | PROVIDERS: ATTEND Psychiatry & Neurology Neurology | DX: G40.209 Localization-related (focal) (partial) symptomatic epilepsy and epileptic syndromes with complex partial seizures, not intractable, without status epilepticus (principal) | CPT/HCPCS: 70544 ==

== ENCOUNTER 2021-10-21 10:27 | Outpatient (CLI) | payer MEDICARE | END 2021-10-21 10:28 | disposition home or self-care (01) | LOC: TBSIIMAG 10:27 | PROVIDERS: ATTEND Family Medicine | DX: M54.42 Lumbago with sciatica, left side (principal); M47.816 Spondylosis without myelopathy or radiculopathy, lumbar region; M47.817 Spondylosis without myelopathy or radiculopathy, lumbosacral region; M47.815 Spondylosis without myelopathy or radiculopathy, thoracolumbar region; G95.19 Other vascular myelopathies | CPT/HCPCS: 72148 ==

== ENCOUNTER 2022-02-20 12:11 | Outpatient (CLI) | payer MEDICARE | END 2022-02-20 12:12 | disposition home or self-care (01) | LOC: TBSIIMAG 12:11 | PROVIDERS: ATTEND Nurse Practitioner Family | DX: M48.062 Spinal stenosis, lumbar region with neurogenic claudication (principal); M47.816 Spondylosis without myelopathy or radiculopathy, lumbar region | CPT/HCPCS: 72148 ==

== ENCOUNTER 2022-03-13 11:14 | Outpatient (CLI) | payer MEDICARE ==
[2022-03-13 12:44] LABS: Hemoglobin 9.8 g/dL (13.5-17.5); Mean Corpuscular Volume 81.8 fl (81.2-95.1); Mean Platelet Volume 9.3 fl (7.4-10.4); Platelet Count 407 10x3/uL (150-450); RBC Distribution Width 14.6 % (11.5-14.5); Red Blood Cell (RBC) Count 3.63 10x6/uL (4.32-5.72); White Blood Cell (WBC) Count 11.8 10x3/uL (3.5-10.5)
[2022-03-13 12:57] LABS: Anion Gap 14 mmol/L (10-20); BUN (Urea Nitrogen) 15 mg/dL (8.4-25.7); Calc. Creatinine Clearance 0 mL/min (70-130); Calcium 9.2 mg/dL (7.8-10.44); Carbon Dioxide 24 mmol/L (23-31); Chloride 99 mmol/L (98-107); Estimated GFR 81; Glucose 84 mg/dL (83-110); Potassium 4.8 mmol/L (3.5-5.1); Sodium 132 mmol/L (136-145)
== END 2022-03-13 11:15 | disposition home or self-care (01) ==
LOC: LABBT 11:14
PROVIDERS: ATTEND Neurological Surgery
DX: Z01.818 Encounter for other preprocedural examination (principal); M43.16 Spondylolisthesis, lumbar region
CPT/HCPCS: 80048; 85027; 93005; 93010

== ENCOUNTER 2022-03-27 07:31 | Day surgery (SDC) | payer MEDICARE ==
[2022-03-24 11:38] VITALS: BMI 23.3
[2022-03-27] MEDS ORDERED: Vancomycin 1 GM VIAL ONE (11:09)
[2022-03-27] MEDS ORDERED: Thrombin 5000 UNITS/5 ML VIAL ONE (11:09)
[2022-03-27] MEDS ORDERED: Sodium Chloride 0.9% 100 ML ONE (11:13)
[2022-03-27] MEDS ORDERED: CEFAZOLIN 2 GM VIAL ONE (11:13)
[2022-03-27] MEDS ORDERED: fentaNYL PF 100 MCG/2 ML SYRINGE ONE (11:18)
[2022-03-27] MEDS ORDERED: NEOSTIGMINE 3 MG/3 ML SYR 3 MG/3 ML SYRINGE ONE (11:26)
[2022-03-27] MEDS ORDERED: PROPOFOL 200 MG/20 ML VIAL ONE (11:26)
[2022-03-27] MEDS ORDERED: PHENYLEPHRINE-NS 100 MCG/ML 10 ML SYRINGE ONE (11:26)
[2022-03-27] MEDS ORDERED: Rocuronium Bromide 10 MG/ML (10ML VIAL) ONE (11:26)
[2022-03-27] MEDS ORDERED: Ondansetron PF 4 MG/2 ML Vial ONE (11:26)
[2022-03-27] MEDS ORDERED: Lidocaine 1% PF 5 ML VIAL ONE (11:26)
[2022-03-27] MEDS ORDERED: Glycopyrrolate 0.2 MG/ML 5 ML SYRINGE ONE (11:26)
[2022-03-27] MEDS ORDERED: ePHEDrine 50 MG/ML VIAL ONE (11:26)
[2022-03-27] MEDS ORDERED: Dexamethasone 20 MG/5 ML VIAL ONE (11:26)
[2022-03-27] MEDS ORDERED: Mineral Oil Sterile 10 ML VIAL ONE (12:08)
[2022-03-27] MEDS ORDERED: SUGAMMADEX SODIUM 200 MG/2 ML VIAL ONE (12:33)
[2022-03-27] MEDS ORDERED: Fentanyl 100 MCG/2 ML VIAL ONE (13:04)
[2022-03-27] MEDS ORDERED: Tamsulosin HCl 0.4 MG CAP ONE (13:41)
[2022-03-27] MEDS ORDERED: HYDROcodone/Acetaminophen 5/325 mg Tablet ONE (13:59)
== END 2022-03-27 15:40 | disposition home or self-care (01) ==
LOC: SDC 07:31
PROVIDERS: ATTEND Neurological Surgery
PROC: 0SG0071 Fusion of Lumbar Vertebral Joint with Autologous Tissue Substitute, Posterior Approach, Posterior Column, Open Approach (ICD-10-PCS; principal; 2022-03-27)
PROC: 0QB00ZZ Excision of Lumbar Vertebra, Open Approach (ICD-10-PCS; 2022-03-27)
DX: M54.16 Radiculopathy, lumbar region (principal); M43.16 Spondylolisthesis, lumbar region; M71.38 Other bursal cyst, other site; I10 Essential (primary) hypertension; Z79.899 Other long term (current) drug therapy
CPT/HCPCS: C1713; C1768; C1776; J1100; J2405; J2704; J3010; J3370; J3490

== ENCOUNTER 2022-04-13 09:59 | Outpatient (CLI) | payer MEDICARE | END 2022-04-13 10:00 | disposition home or self-care (01) | LOC: TBSIIMAG 09:59 | PROVIDERS: ATTEND Neurological Surgery | DX: M43.16 Spondylolisthesis, lumbar region (principal); M47.816 Spondylosis without myelopathy or radiculopathy, lumbar region; S22.080D Wedge compression fracture of T11-T12 vertebra, subsequent encounter for fracture with routine healing; S32.019A Unspecified fracture of first lumbar vertebra, initial encounter for closed fracture; Z98.1 Arthrodesis status | CPT/HCPCS: 72100 ==

== ENCOUNTER 2022-05-31 14:08 | Outpatient (CLI) | payer MEDICARE | END 2022-05-31 14:09 | disposition home or self-care (01) | LOC: TBSIIMAG 14:08 | PROVIDERS: ATTEND Neurological Surgery | DX: M47.26 Other spondylosis with radiculopathy, lumbar region (principal); M54.50 Low back pain, unspecified; M71.38 Other bursal cyst, other site; Z98.890 Other specified postprocedural states | CPT/HCPCS: 72100 ==

== ENCOUNTER 2022-06-21 11:45 | Outpatient (CLI) | payer MEDICARE | END 2022-06-21 11:46 | disposition home or self-care (01) | LOC: PET 11:45 | PROVIDERS: ATTEND Internal Medicine Hematology & Oncology | DX: C15.5 Malignant neoplasm of lower third of esophagus (principal); C77.9 Secondary and unspecified malignant neoplasm of lymph node, unspecified | CPT/HCPCS: 78815; A9552; 80053; 82378; 82607; 82728; 82746; 83540; 83550 ==

== ENCOUNTER 2022-08-31 13:00 | Outpatient (CLI) | payer MEDICARE | END 2022-08-31 13:01 | disposition home or self-care (01) | LOC: PET 13:00 | PROVIDERS: ATTEND Internal Medicine Hematology & Oncology | DX: C15.5 Malignant neoplasm of lower third of esophagus (principal) | CPT/HCPCS: 78815; A9552 ==

== ENCOUNTER 2022-11-16 08:00 | Outpatient (CLI) | payer MEDICARE | END 2022-11-16 08:01 | disposition home or self-care (01) | LOC: PET 08:00 | PROVIDERS: ATTEND Internal Medicine Hematology & Oncology | DX: C15.5 Malignant neoplasm of lower third of esophagus (principal); C85.11 Unspecified B-cell lymphoma, lymph nodes of head, face, and neck; R94.8 Abnormal results of function studies of other organs and systems | CPT/HCPCS: 78815; A9552 ==

== ENCOUNTER 2022-11-22 06:46 | Day surgery (SDC) | payer MEDICARE ==
[2022-11-21 16:16] VITALS: BMI 19.3
[2022-11-22] MEDS ORDERED: PROPOFOL 200 MG/20 ML VIAL ONE (09:36)
== END 2022-11-22 10:43 | disposition home or self-care (01) ==
LOC: SDC 06:46
PROVIDERS: ATTEND Internal Medicine Gastroenterology
PROC: 0DJ08ZZ Inspection of Upper Intestinal Tract, Via Natural or Artificial Opening Endoscopic (ICD-10-PCS; principal; 2022-11-22)
DX: K22.70 Barrett's esophagus without dysplasia (principal); K44.9 Diaphragmatic hernia without obstruction or gangrene; K21.9 Gastro-esophageal reflux disease without esophagitis; I10 Essential (primary) hypertension; D69.6 Thrombocytopenia, unspecified; R64 Cachexia; Z68.1 Body mass index [BMI] 19.9 or less, adult; Z86.010 Personal history of colon polyps; Z87.891 Personal history of nicotine dependence
CPT/HCPCS: J2704

== ENCOUNTER 2022-12-03 15:34 | Inpatient (IN) | payer MEDICARE, OTHER ==
[2022-12-03 18:21] LABS: Hematocrit 21.4 % (42.0-52.0); Hemoglobin 7.5 g/dL (14.0-18.0); Mean Corpuscular Hemoglobin 35.9 pg (27.0-31.0); Mean Corpuscular Volume 102.4 fl (78.0-98.0); Mean Platelet Volume 10.6 fL (7.4-10.4); Red Blood Cell (RBC) Count 2.09 mill/uL (4.70-6.10); White Blood Cell (WBC) Count 21.7 10x3/uL (4.8-10.8)
[2022-12-03 18:22] LABS: Delete Auto Diff?? YES; Manual Diff?? YES; Platelet Count 58 10x3/uL (130-400)
[2022-12-03] MEDS ORDERED: Ondansetron PF 4 MG/2 ML Vial IVP PRN (18:36)
[2022-12-03] MEDS ORDERED: Acetaminophen 650 MG Suppository PR PRN (18:36)
[2022-12-03] MEDS ORDERED: Acetaminophen 325 MG TAB PO PRN (18:36)
[2022-12-03] MEDS ORDERED: Ondansetron ODT 4 MG TAB PO PRN (18:36)
[2022-12-03 18:42] LABS: Anion Gap 14 mmol/L (10-20); BUN (Urea Nitrogen) 14 mg/dL (8.4-25.7); Calc. Creatinine Clearance 48 mL/min (70-130); Calcium 7.7 mg/dL (7.8-10.44); Carbon Dioxide 23 mmol/L (23-31); Chloride 97 mmol/L (98-107); Estimated GFR 61; Glucose 85 mg/dL (83-110); Magnesium 1.2 mg/dL (1.6-2.6); Sodium 131 mmol/L (136-145)
[2022-12-03 18:45] LABS: Anisocytosis SLIGHT = 6-15 cells HPF (0-5); Band 22 % (5-11); CellaVision Operator ID LAB.MJL; Helmet Cells SLIGHT = 2-5 cells HPF (0-1); Lymphocytes 13 % (21-51); Macrocytosis SLIGHT = 6-15 cells HPF (0-5); Monocytes 4 % (0-10); Neutrophil 61 % (42-75); Ovalocytes SLIGHT = 2-5 cells HPF (0-1); Platelet Adequacy Comment Platelets Decreased; Poikilocytosis SLIGHT = 6-15 cells HPF (0-5); Polychromasia SLIGHT = 2-3 cells HPF (0-2); Schistocytes SLIGHT = 2-5 cells HPF (0-1); Total Cell Count 99; Toxic Granulation SLIGHT
[2022-12-03] MEDS ORDERED: Electrolyte Replacement Protocol FS SCH (19:00)
[2022-12-03 20:11] LABS: Phosphorus 2.9 mg/dL (2.3-4.7)
[2022-12-03] MEDS ORDERED: Potassium Bicarbonate/Cit Ac 20 MEQ TAB PO SCH (20:30)
[2022-12-03] MEDS ORDERED: Magnesium Sulfate In Water 4 GM in Premix 1 BAG IVPB SCH (20:30)
[2022-12-03] MEDS: Sodium Chloride 0.9% 1,000 ML IV SCH (20:53)
[2022-12-03] MEDS ORDERED: Famotidine 20 MG TAB PO SCH (21:00)
[2022-12-03] MEDS ORDERED: Tamsulosin HCl 0.4 MG CAP PO SCH (22:15)
[2022-12-03] MEDS: traMADol HCl 50 MG TAB PO PRN (22:18)
[2022-12-04] MEDS: traMADol HCl 50 MG TAB PO PRN ×2 (03:58→20:39)
[2022-12-04 06:14] LABS: Hematocrit 23.2 % (42.0-52.0); Hemoglobin 8.1 g/dL (14.0-18.0); Mean Corpuscular HGB CONC 34.9 g/dL (32.0-36.0); Mean Corpuscular Hemoglobin 35.5 pg (27.0-31.0); Mean Corpuscular Volume 101.8 fl (78.0-98.0); Mean Platelet Volume 10.2 fL (7.4-10.4); RBC Distribution Width 15.9 % (11.5-14.5); Red Blood Cell (RBC) Count 2.28 mill/uL (4.70-6.10); White Blood Cell (WBC) Count 26.5 10x3/uL (4.8-10.8)
[2022-12-04 06:16] LABS: Delete Auto Diff?? YES; Manual Diff?? YES; Platelet Count 63 10x3/uL (130-400)
[2022-12-04 06:40] LABS: Anisocytosis SLIGHT = 6-15 cells HPF (0-5); Band 15 % (5-11); CellaVision Operator ID LAB.CLH1; Hypochromia SLIGHT = 6-15 cells HPF (0-5); Lymphocytes 8 % (21-51); Macrocytosis SLIGHT = 6-15 cells HPF (0-5); Monocytes 3 % (0-10); Neutrophil 74 % (42-75); Platelet Adequacy Comment Platelets Decreased; Total Cell Count 100; Toxic Granulation SLIGHT
[2022-12-04 06:41] LABS: Anion Gap 12 mmol/L (10-20); BUN (Urea Nitrogen) 12 mg/dL (8.4-25.7); Calc. Creatinine Clearance 60 mL/min (70-130); Calcium 8.2 mg/dL (7.8-10.44); Carbon Dioxide 25 mmol/L (23-31); Chloride 96 mmol/L (98-107); Estimated GFR 80; Glucose 112 mg/dL (83-110); Potassium 2.7 mmol/L (3.5-5.1); Sodium 130 mmol/L (136-145)
[2022-12-04 06:45] LABS: Magnesium 1.9 mg/dL (1.6-2.6); Phosphorus 2.2 mg/dL (2.3-4.7)
[2022-12-04] MEDS ORDERED: Magnesium 2 GM/50 ML(in water) 2 GM in Premix 1 BAG IVPB SCH (09:00)
[2022-12-04] MEDS: Vit A,C & E/Lutein/Minerals Tablet PO SCH (09:37)
[2022-12-04] MEDS: Ferrous Sulfate 325 MG TAB PO SCH (09:38)
[2022-12-04] MEDS: Potassium Chloride 20 MEQ TAB PO SCH ×2 (09:38→19:07)
[2022-12-04] MEDS: Sodium Chloride 0.9% 1,000 ML IV SCH ×2 (09:47→21:53)
[2022-12-04] MEDS ORDERED: Potassium Chloride 20 MEQ TAB PO SCH (16:30)
[2022-12-04 17:17] LABS: Potassium 3.2 mmol/L (3.5-5.1)
[2022-12-04] MEDS: Mirtazapine 15 MG TAB PO SCH (20:38)
[2022-12-04] MEDS: Tamsulosin HCl 0.4 MG CAP PO SCH (20:39)
[2022-12-04 22:17] LABS: Hematocrit 21.4 % (42.0-52.0); Hemoglobin 7.4 g/dL (14.0-18.0)
[2022-12-05 04:23] LABS: Hematocrit 22.3 % (42.0-52.0); Hemoglobin 7.6 g/dL (14.0-18.0); Mean Corpuscular HGB CONC 34.1 g/dL (32.0-36.0); Mean Corpuscular Hemoglobin 34.7 pg (27.0-31.0); Mean Corpuscular Volume 101.8 fl (78.0-98.0); Mean Platelet Volume 10.3 fL (7.4-10.4); RBC Distribution Width 15.8 % (11.5-14.5); Red Blood Cell (RBC) Count 2.19 mill/uL (4.70-6.10)
[2022-12-05 04:30] LABS: Platelet Count 81 10x3/uL (130-400)
[2022-12-05 04:31] LABS: Delete Auto Diff?? YES; Manual Diff?? YES
[2022-12-05 04:46] LABS: Phosphorus 2.4 mg/dL (2.3-4.7)
[2022-12-05 04:52] LABS: ALT (SGPT) 13 U/L (8-55); AST (SGOT) 23 U/L (5-34); Albumin 3.4 g/dL (3.4-4.8); Alkaline Phosphatase 172 U/L (40-110); Anion Gap 13 mmol/L (10-20); BUN (Urea Nitrogen) 13 mg/dL (8.4-25.7); Bilirubin, Total 0.5 mg/dL (0.2-1.2); Calc. Creatinine Clearance 59 mL/min (70-130); Calcium 8.1 mg/dL (7.8-10.44); Carbon Dioxide 24 mmol/L (23-31); Chloride 98 mmol/L (98-107); Estimated GFR 78; Globulin 1.4 g/dL (2.4-3.5); Glucose 98 mg/dL (83-110); Magnesium 1.9 mg/dL (1.6-2.6); Potassium 3.2 mmol/L (3.5-5.1); Protein, Total 4.8 g/dL (5.8-8.1); Sodium 132 mmol/L (136-145)
[2022-12-05 04:59] LABS: Anisocytosis SLIGHT = 6-15 cells HPF (0-5); Burr Cells SLIGHT = 2-5 cells HPF (0-1); CellaVision Operator ID lab.sh2; Eosinophils 3 % (0-10); Hypochromia SLIGHT = 6-15 cells HPF (0-5); Lymphocytes 14 % (21-51); Macrocytosis SLIGHT = 6-15 cells HPF (0-5); Monocytes 6 % (0-10); Neutrophil 77 % (42-75); Ovalocytes SLIGHT = 2-5 cells HPF (0-1); Platelet Adequacy Comment Platelets Decreased; Poikilocytosis SLIGHT = 6-15 cells HPF (0-5); Polychromasia SLIGHT = 2-3 cells HPF (0-2); Smudge Cells 19.8 %; Tear Drops SLIGHT = 2-5 cells HPF (0-1); Total Cell Count 101; Toxic Granulation MODERATE; Vacuoles SLIGHT
[2022-12-05] MEDS: traMADol HCl 50 MG TAB PO PRN (06:03)
[2022-12-05] MEDS: Megestrol Acetate 800 MG/20 ML UDCUP PO SCH (09:15)
[2022-12-05] MEDS: Ferrous Sulfate 325 MG TAB PO SCH (09:15)
[2022-12-05] MEDS: Vit A,C & E/Lutein/Minerals Tablet PO SCH (09:15)
[2022-12-05] MEDS: Sodium Chloride 0.9% 1,000 ML IV SCH (11:40)
[2022-12-05] MEDS ORDERED: Potassium Chloride 20 MEQ TAB PO SCH ×2 (12:30→22:15)
[2022-12-05] MEDS ORDERED: Amlodipine 10 MG TAB PO SCH (14:30)
[2022-12-05] MEDS ORDERED: Magnesium 2 GM/50 ML(in water) 2 GM in Premix 1 BAG IVPB SCH (17:00)
[2022-12-05 18:10] LABS: Potassium 3.5 mmol/L (3.5-5.1)
[2022-12-05] MEDS: Mirtazapine 15 MG TAB PO SCH (20:54)
[2022-12-05] MEDS: Tamsulosin HCl 0.4 MG CAP PO SCH (20:55)
[2022-12-06] MEDS: Sodium Chloride 0.9% 1,000 ML IV SCH ×2 (01:51→15:07)
[2022-12-06] MEDS: traMADol HCl 50 MG TAB PO PRN ×2 (02:28→09:35)
[2022-12-06 04:30] LABS: Hematocrit 22.6 % (42.0-52.0); Hemoglobin 7.9 g/dL (14.0-18.0); Mean Corpuscular Hemoglobin 35.4 pg (27.0-31.0); Mean Corpuscular Volume 101.3 fl (78.0-98.0); Platelet Count 107 10x3/uL (130-400); RBC Distribution Width 15.9 % (11.5-14.5); Red Blood Cell (RBC) Count 2.23 mill/uL (4.70-6.10); White Blood Cell (WBC) Count 22.7 10x3/uL (4.8-10.8)
[2022-12-06 04:32] LABS: Delete Auto Diff?? YES; Manual Diff?? YES
[2022-12-06 04:54] LABS: ALT (SGPT) 11 U/L (8-55); AST (SGOT) 24 U/L (5-34); Albumin 3.3 g/dL (3.4-4.8); Alkaline Phosphatase 200 U/L (40-110); Anion Gap 13 mmol/L (10-20); BUN (Urea Nitrogen) 15 mg/dL (8.4-25.7); Bilirubin, Total 0.6 mg/dL (0.2-1.2); Calc. Creatinine Clearance 56 mL/min (70-130); Calcium 8.2 mg/dL (7.8-10.44); Carbon Dioxide 24 mmol/L (23-31); Chloride 97 mmol/L (98-107); Estimated GFR 73; Globulin 1.4 g/dL (2.4-3.5); Glucose 91 mg/dL (83-110); Potassium 3.8 mmol/L (3.5-5.1); Protein, Total 4.7 g/dL (5.8-8.1); Sodium 130 mmol/L (136-145)
[2022-12-06 04:59] LABS: Band 16 % (5-11); CellaVision Operator ID LAB.CLH1; Eosinophils 1 % (0-10); Hypochromia SLIGHT = 6-15 cells HPF (0-5); Lymphocytes 15 % (21-51); Macrocytosis SLIGHT = 6-15 cells HPF (0-5); Monocytes 2 % (0-10); Neutrophil 65 % (42-75); Platelet Adequacy Comment Platelets Decreased; Polychromasia SLIGHT = 2-3 cells HPF (0-2); Total Cell Count 101
[2022-12-06] MEDS ORDERED: Amlodipine 10 MG TAB PO SCH (09:00)
[2022-12-06] MEDS: Ferrous Sulfate 325 MG TAB PO SCH (09:32)
[2022-12-06] MEDS: Megestrol Acetate 800 MG/20 ML UDCUP PO SCH (09:32)
[2022-12-06] MEDS: Vit A,C & E/Lutein/Minerals Tablet PO SCH (09:32)
[2022-12-06 14:19] VITALS: BMI 18.7
[2022-12-06 15:47] VITALS: BP 102/54; TEMP 98.8
== END 2022-12-06 17:48 | disposition home health service (06) | DRG 376 ==
LOC: 2NO 16:59 → INTOOBSV 16:59 → OBSVTOIN 12-04 12:48
PROVIDERS: ADMIT Hospitalist; ATTEND Internal Medicine
DX: C15.5 Malignant neoplasm of lower third of esophagus (principal); I10 Essential (primary) hypertension; K44.9 Diaphragmatic hernia without obstruction or gangrene; D63.8 Anemia in other chronic diseases classified elsewhere; R62.7 Adult failure to thrive; K21.9 Gastro-esophageal reflux disease without esophagitis; D69.6 Thrombocytopenia, unspecified; E86.0 Dehydration; E87.6 Hypokalemia; E83.42 Hypomagnesemia; R53.1 Weakness; D72.829 Elevated white blood cell count, unspecified; R53.81 Other malaise; K64.9 Unspecified hemorrhoids; Z79.899 Other long term (current) drug therapy; Z85.6 Personal history of leukemia; Z98.890 Other specified postprocedural states; Z87.891 Personal history of nicotine dependence; D50.8 Other iron deficiency anemias
CPT/HCPCS: 36415; 80048; 80053; 82248; 82274; 83605; 83615; 83735; 84100; 84436; 84443; 84550; 85025; 86850; 86900; 86901; 87040; 96374; 96376; G0378; J3475; J7050

== ENCOUNTER 2023-02-20 03:31 | Inpatient (IN) | payer MEDICARE ==
[2023-02-20] MEDS ORDERED: Bacitracin 1 PK ONE (04:35)
[2023-02-20 04:38] LABS: Hematocrit 28.2 % (42.0-52.0); Hemoglobin 9.6 g/dL (14.0-18.0); Manual Diff?? YES; Mean Corpuscular Hemoglobin 32.2 pg (27.0-31.0); Mean Corpuscular Volume 94.6 fl (78.0-98.0); Mean Platelet Volume 8.2 fL (7.4-10.4); Platelet Count 235 10x3/uL (130-400); RBC Distribution Width 13.1 % (11.5-14.5); Red Blood Cell (RBC) Count 2.98 mill/uL (4.70-6.10); White Blood Cell (WBC) Count 12.2 10x3/uL (4.8-10.8)
[2023-02-20 04:47] LABS: Delete Auto Diff?? YES
[2023-02-20 05:05] LABS: ALT (SGPT) 8 U/L (8-55); AST (SGOT) 13 U/L (5-34); Albumin 3.4 g/dL (3.4-4.8); Alkaline Phosphatase 84 U/L (40-110); Anion Gap 13 mmol/L (10-20); BUN (Urea Nitrogen) 17 mg/dL (8.4-25.7); Bilirubin, Total 0.3 mg/dL (0.2-1.2); Calc. Creatinine Clearance 0 mL/min (70-130); Calcium 8.2 mg/dL (7.8-10.44); Carbon Dioxide 22 mmol/L (23-31); Chloride 99 mmol/L (98-107); Estimated GFR 69; Globulin 2.2 g/dL (2.4-3.5); Glucose 118 mg/dL (83-110); Magnesium 1.5 mg/dL (1.6-2.6); Potassium 3.5 mmol/L (3.5-5.1); Protein, Total 5.6 g/dL (5.8-8.1); Sodium 130 mmol/L (136-145)
[2023-02-20 05:13] LABS: Anisocytosis SLIGHT = 6-15 cells HPF (0-5); Band 13 % (5-11); CellaVision Operator ID LAB.JMM; Eosinophils 1 % (0-10); Lymphocytes 15 % (21-51); Neutrophil 71 % (42-75); Platelet Adequacy Comment Platelets Normal; Polychromasia SLIGHT = 2-3 cells HPF (0-2); Total Cell Count 100
[2023-02-20] MEDS ORDERED: Vancomycin 1 GM/200 ML (FROZEN) BAG ONE (05:57)
[2023-02-20] MEDS ORDERED: Cefepime 2 GM VIAL ONE (05:57)
[2023-02-20] MEDS ORDERED: Magnesium 2 GM/50 ML BAG (IN WATER) ONE (05:57)
[2023-02-20] MEDS ORDERED: Sodium Chloride 0.9% 100 ML ONE (05:57)
[2023-02-20 06:50] LABS: Bacteria/HPF None Seen HPF (None Seen); Bilirubin Negative (Negative); Blood, Urine Negative (Negative); CAUTI Indications for Culture Alt mental st,lethar; Clarity Clear (Clear); Glucose, Urine (Dipstick) Normal (Negative); Ketone, Urine Negative (Negative); Leukocyte Negative Leu/uL (Negative); Nitrite Negative (Negative); Protein, Urine (Dipstick) Negative (Neg-Trace); RBC/HPF None Seen HPF (0-3); Squamous Epithelial None Seen HPF (0-3); Urobilinogen Normal mg/dL (Less than 2); WBC/HPF 0-3 HPF (0-3)
[2023-02-20 06:54] LABS: Urine Culture Reflex No No
[2023-02-20] MEDS ORDERED: Ondansetron ODT 4 MG TAB PO PRN (08:45)
[2023-02-20] MEDS ORDERED: Ondansetron PF 4 MG/2 ML Vial IVP PRN (08:45)
[2023-02-20] MEDS ORDERED: Bisacodyl 5 MG TAB PO PRN (08:45)
[2023-02-20] MEDS ORDERED: Acetaminophen 325 MG TAB PO PRN (08:45)
[2023-02-20] MEDS ORDERED: Acetaminophen 650 MG Suppository PR PRN (08:45)
[2023-02-20] MEDS ORDERED: Senokot S 8.6-50 MG TAB PO PRN (08:45)
[2023-02-20] MEDS ORDERED: Levothyroxine Sodium 75 MCG TAB PO SCH (09:00)
[2023-02-20 09:39] LABS: Magnesium 1.7 mg/dL (1.6-2.6)
[2023-02-20] MEDS: Azithromycin 500 MG in Sodium Chloride 0.9% 250 ML 250 ML IVPB SCH (09:42)
[2023-02-20] MEDS: Enoxaparin 40 MG (0.4 mL) SYRINGE SC SCH (09:44)
[2023-02-20 10:18] LABS: Legionella Urinary Ag Negative (Negative)
[2023-02-20 10:56] VITALS: BMI 20.5
[2023-02-20 11:38] LABS: Strep pneumo Urine Ag NEGATIVE (NEGATIVE)
[2023-02-20 11:48] LABS: Sodium 132 mmol/L (136-145)
[2023-02-20] MEDS: Sodium Chloride 0.9% 1,000 ML IV SCH (12:35)
[2023-02-20] MEDS: cefTRIAXone\\ROCEPHIN 1 GM in Sodium Chloride 0.9% 100 ML IVPB SCH (12:35)
[2023-02-20] MEDS ORDERED: Amlodipine 5 MG TAB PO SCH (17:30)
[2023-02-20 17:38] LABS: Sodium 132 mmol/L (136-145)
[2023-02-20] MEDS: Tamsulosin HCl 0.4 MG CAP PO SCH (20:20)
[2023-02-20] MEDS: Acetaminophen/Codeine 30-300mg Tablet PO PRN (20:29)
[2023-02-20 23:55] LABS: Sodium 132 mmol/L (136-145)
[2023-02-21 04:30] LABS: Hematocrit 28.5 % (42.0-52.0); Hemoglobin 9.6 g/dL (14.0-18.0); Manual Diff?? YES; Mean Corpuscular HGB CONC 33.7 g/dL (32.0-36.0); Mean Corpuscular Hemoglobin 31.6 pg (27.0-31.0); Mean Corpuscular Volume 93.8 fl (78.0-98.0); Mean Platelet Volume 8.6 fL (7.4-10.4); Platelet Count 214 10x3/uL (130-400); Red Blood Cell (RBC) Count 3.04 mill/uL (4.70-6.10); White Blood Cell (WBC) Count 10.8 10x3/uL (4.8-10.8)
[2023-02-21 04:40] LABS: Delete Auto Diff?? YES
[2023-02-21 04:41] LABS: Anion Gap 11 mmol/L (10-20); BUN (Urea Nitrogen) 12 mg/dL (8.4-25.7); Calc. Creatinine Clearance 80 mL/min (70-130); Calcium 8.1 mg/dL (7.8-10.44); Carbon Dioxide 24 mmol/L (23-31); Chloride 100 mmol/L (98-107); Estimated GFR 94; Glucose 101 mg/dL (83-110); Potassium 2.8 mmol/L (3.5-5.1); Sodium 132 mmol/L (136-145)
[2023-02-21 05:11] LABS: Band 2 % (5-11); CellaVision Operator ID lab.abc; Eosinophils 2 % (0-10); Lymphocytes 24 % (21-51); Monocytes 1 % (0-10); Neutrophil 69 % (42-75); Platelet Adequacy Comment Platelets Normal; Reactive Lymphocytes 2 % (0-10); Total Cell Count 100
[2023-02-21] MEDS: Sodium Chloride 0.9% 1,000 ML IV SCH (05:35)
[2023-02-21] MEDS: Levothyroxine Sodium 75 MCG TAB PO SCH (05:35)
[2023-02-21] MEDS: Azithromycin 500 MG in Sodium Chloride 0.9% 250 ML 250 ML IVPB SCH (08:38)
[2023-02-21] MEDS: Enoxaparin 40 MG (0.4 mL) SYRINGE SC SCH (08:39)
[2023-02-21] MEDS: Potassium Chloride 20 MEQ TAB PO SCH ×3 (08:39→17:27)
[2023-02-21] MEDS: Amlodipine 5 MG TAB PO SCH (08:39)
[2023-02-21 11:25] LABS: Sodium 133 mmol/L (136-145)
[2023-02-21] MEDS: cefTRIAXone\\ROCEPHIN 1 GM in Sodium Chloride 0.9% 100 ML IVPB SCH (13:08)
[2023-02-21 18:13] LABS: Sodium 133 mmol/L (136-145)
[2023-02-21] MEDS: Tamsulosin HCl 0.4 MG CAP PO SCH (20:45)
[2023-02-21] MEDS: Acetaminophen/Codeine 30-300mg Tablet PO PRN (20:47)
[2023-02-22] MEDS: Sodium Chloride 0.9% 1,000 ML IV SCH (02:04)
[2023-02-22 04:58] LABS: Hematocrit 27.1 % (42.0-52.0); Mean Corpuscular HGB CONC 33.2 g/dL (32.0-36.0); Mean Corpuscular Hemoglobin 31.4 pg (27.0-31.0); Mean Corpuscular Volume 94.4 fl (78.0-98.0); Mean Platelet Volume 8.6 fL (7.4-10.4); Platelet Count 220 10x3/uL (130-400); Red Blood Cell (RBC) Count 2.87 mill/uL (4.70-6.10); White Blood Cell (WBC) Count 11.5 10x3/uL (4.8-10.8)
[2023-02-22 05:08] LABS: Delete Auto Diff?? YES; Manual Diff?? YES
[2023-02-22 05:20] LABS: Anion Gap 12 mmol/L (10-20); BUN (Urea Nitrogen) 17 mg/dL (8.4-25.7); Calc. Creatinine Clearance 71 mL/min (70-130); Calcium 8.3 mg/dL (7.8-10.44); Carbon Dioxide 24 mmol/L (23-31); Chloride 102 mmol/L (98-107); Estimated GFR 88; Glucose 101 mg/dL (83-110); Potassium 3.9 mmol/L (3.5-5.1); Sodium 134 mmol/L (136-145)
[2023-02-22] MEDS: Levothyroxine Sodium 75 MCG TAB PO SCH (05:39)
[2023-02-22 06:33] LABS: Anisocytosis SLIGHT = 6-15 cells HPF (0-5); Band 5 % (5-11); CellaVision Operator ID LAB.JMM; Eosinophils 1 % (0-10); Lymphocytes 15 % (21-51); Macrocytosis SLIGHT = 6-15 cells HPF (0-5); Monocytes 1 % (0-10); Neutrophil 68 % (42-75); Platelet Adequacy Comment Platelets Normal; Polychromasia SLIGHT = 2-3 cells HPF (0-2); Reactive Lymphocytes 5 % (0-10); Smudge Cells 61.2 %; Total Cell Count 98
[2023-02-22] MEDS: Amlodipine 5 MG TAB PO SCH (08:28)
[2023-02-22] MEDS: Azithromycin 500 MG in Sodium Chloride 0.9% 250 ML 250 ML IVPB SCH (08:28)
[2023-02-22] MEDS: Enoxaparin 40 MG (0.4 mL) SYRINGE SC SCH (08:28)
[2023-02-22] MEDS ORDERED: Levothyroxine Sodium 100 MCG TAB PO SCH (08:45)
[2023-02-22 09:29] VITALS: BP 150/74; TEMP 97.7
[2023-02-23] MEDS ORDERED: Levothyroxine Sodium 100 MCG TAB PO SCH (06:00)
== END 2023-02-22 10:16 | disposition home or self-care (01) | DRG 193 ==
LOC: ERS 03:31 → ERHOLD 06:02 → T4-A 08:41
PROVIDERS: ADMIT Student in an Organized Health Care Education/Training Program; ATTEND Internal Medicine
DX: J18.9 Pneumonia, unspecified organism (principal); G93.41 Metabolic encephalopathy; E87.1 Hypo-osmolality and hyponatremia; C15.9 Malignant neoplasm of esophagus, unspecified; E03.9 Hypothyroidism, unspecified; I10 Essential (primary) hypertension; D69.6 Thrombocytopenia, unspecified; K44.9 Diaphragmatic hernia without obstruction or gangrene; D64.9 Anemia, unspecified; E83.42 Hypomagnesemia; R53.81 Other malaise; N40.0 Benign prostatic hyperplasia without lower urinary tract symptoms; Z96.653 Presence of artificial knee joint, bilateral; Z79.899 Other long term (current) drug therapy; Z79.890 Hormone replacement therapy; Z85.6 Personal history of leukemia; Z98.890 Other specified postprocedural states; Z87.891 Personal history of nicotine dependence
CPT/HCPCS: 36415; 36416; 70450; 71045; 72125; 72170; 80048; 80053; 81001; 83605; 83735; 83880; 83930; 83935; 84300; 84439; 84443; 84484; 84540; 84560; 85025; 87040; 87086; 87449; 87633; 87899; 93005; 94760; 96365; 96367; 96368; J0456; J0692; J0696; J1650; J3370-JW; J3475; J3490; J7050

== ENCOUNTER 2023-03-13 08:20 | Outpatient (CLI) | payer MEDICARE ==
[2023-03-13] MEDS ORDERED: Iopamidol-370 76% 500 ML MDV (1 ML CHARGE) ONE (10:15)
== END 2023-03-13 08:21 | disposition home or self-care (01) ==
LOC: BICCT 08:20
PROVIDERS: ATTEND Internal Medicine Hematology & Oncology
DX: C15.5 Malignant neoplasm of lower third of esophagus (principal); C77.9 Secondary and unspecified malignant neoplasm of lymph node, unspecified; J90 Pleural effusion, not elsewhere classified; J98.11 Atelectasis; K44.9 Diaphragmatic hernia without obstruction or gangrene; K59.00 Constipation, unspecified; R59.0 Localized enlarged lymph nodes; R91.8 Other nonspecific abnormal finding of lung field
CPT/HCPCS: 71260; 74177; Q9967

== ENCOUNTER 2023-06-28 07:37 | Outpatient (CLI) | payer MEDICARE | END 2023-06-28 07:38 | disposition home or self-care (01) | LOC: BICCT 07:37 | PROVIDERS: ATTEND Internal Medicine Hematology & Oncology | DX: C15.5 Malignant neoplasm of lower third of esophagus (principal); C77.9 Secondary and unspecified malignant neoplasm of lymph node, unspecified; R59.0 Localized enlarged lymph nodes; K44.9 Diaphragmatic hernia without obstruction or gangrene; M47.9 Spondylosis, unspecified | CPT/HCPCS: 71260; 74177 ==

== ENCOUNTER 2023-11-12 08:28 | Outpatient (CLI) | payer MEDICARE ==
[2023-11-12] MEDS ORDERED: Iopamidol 370 76% 100 ML VIAL ONE (09:44)
== END 2023-11-12 08:29 | disposition home or self-care (01) ==
LOC: BICCT 08:28
PROVIDERS: ATTEND Internal Medicine Hematology & Oncology
DX: C15.5 Malignant neoplasm of lower third of esophagus (principal); C85.11 Unspecified B-cell lymphoma, lymph nodes of head, face, and neck; D50.8 Other iron deficiency anemias; N28.1 Cyst of kidney, acquired
CPT/HCPCS: 71260; 74177; Q9967

== ENCOUNTER 2023-11-29 04:07 | Inpatient (IN) | payer MEDICARE ==
[2023-11-29] MEDS ORDERED: levETIRAcetam 500 MG (5 mL) VIAL ONE ×2 (04:34→04:36)
[2023-11-29 04:57] LABS: Actual Bicarbonate (HCO3a) 20.1 mEq/L (22-28); Analyzer IN Cardio ER; CO2 Tension 33.2 mmHg (35.0-45.0); Calcium, Ionized (arterial) 1.18 mmol/L (1.12-1.30); Carboxyhemoglobin (COHb) 0.3 gm% (0.0-3.0); Hematocrit-ABG 32 % (42.0-52.0); Hemoglobin (Hb) 10.8 g/dL (14.0-18.0); O2 Tension (PaO2), arterial 274.4 mmHg (> 70.0); pH, Arterial 7.399 (7.35-7.45)
[2023-11-29 05:29] LABS: Puncture Site Right Brachial art
[2023-11-29] MEDS ORDERED: Propofol 1,000 MG/100 ML VIAL IV ONE (05:34)
[2023-11-29] MEDS ORDERED: Etomidate 40 MG (20 mL) VIAL ONE (05:45)
[2023-11-29] MEDS ORDERED: Rocuronium Bromide 10 MG/ML (10ML VIAL) ONE (05:45)
[2023-11-29 05:49] LABS: ALT (SGPT) 5 U/L (8-55); AST (SGOT) 11 U/L (5-34); Albumin 3.1 g/dL (3.4-4.8); Alkaline Phosphatase 58 U/L (40-110); Anion Gap 15 mmol/L (10-20); BUN (Urea Nitrogen) 21 mg/dL (8.4-25.7); Bilirubin, Total 0.3 mg/dL (0.2-1.2); Calc. Creatinine Clearance 0 mL/min (70-130); Calcium 8.6 mg/dL (7.8-10.44); Carbon Dioxide 16 mmol/L (23-31); Chloride 108 mmol/L (98-107); Estimated GFR 59; Globulin 2.9 g/dL (2.4-3.5); Glucose 111 mg/dL (83-110); Magnesium 1.8 mg/dL (1.6-2.6); Potassium 3.8 mmol/L (3.5-5.1); Sodium 135 mmol/L (136-145)
[2023-11-29 05:55] LABS: Troponin I 0.022 ng/mL (< 0.028)
[2023-11-29 06:00] LABS: Actual Bicarbonate (HCO3a) 18.8 mEq/L (22-28); Analyzer IN Cardio ER; Base Excess (BEa) -4.5 mEq/L (-2.0 to +3.0); CO2 Tension 29.2 mmHg (35.0-45.0); Calcium, Ionized (arterial) 1.19 mmol/L (1.12-1.30); Carboxyhemoglobin (COHb) 0.1 gm% (0.0-3.0); Hematocrit-ABG 34 % (42.0-52.0); Hemoglobin (Hb) 11.6 g/dL (14.0-18.0); O2 Tension (PaO2), arterial 259.2 mmHg (> 70.0); Potassium - ABG Lab 3.43 mmol/L (3.70-5.30); pH, Arterial 7.427 (7.35-7.45)
[2023-11-29 06:06] LABS: Puncture Site Left Brachial artery
[2023-11-29] MEDS ORDERED: niCARdipine 25 MG/10 ML SDV ONE (06:08)
[2023-11-29 06:21] LABS: Hematocrit 31.3 % (42.0-52.0); Hemoglobin 9.8 g/dL (14.0-18.0); Mean Corpuscular HGB CONC 31.3 g/dL (32.0-36.0); Mean Corpuscular Hemoglobin 29.6 pg (27.0-31.0); Mean Corpuscular Volume 94.6 fL (78.0-98.0); Mean Platelet Volume 8.6 fL (7.4-10.4); Platelet Count 351 10x3/uL (130-400); RBC Distribution Width 13.6 % (11.5-14.5); Red Blood Cell (RBC) Count 3.31 mill/uL (4.70-6.10)
[2023-11-29] MEDS ORDERED: Labetalol HCl 100 MG/20 ML VIAL ONE (06:37)
[2023-11-29 06:58] LABS: Bacteria/HPF None Seen HPF (None Seen); Bilirubin Negative (Negative); Blood, Urine Negative (Negative); CAUTI Indications for Culture Alt mental st,lethar; Clarity Clear (Clear); Glucose, Urine (Dipstick) Normal (Negative); Ketone, Urine Negative (Negative); Leukocyte Negative Leu/uL (Negative); Nitrite Negative (Negative); Protein, Urine (Dipstick) 30 mg/dL (Neg-Trace); RBC/HPF 0-3 HPF (0-3); Specific Gravity, Urine 1.013 (1.002-1.036); Squamous Epithelial None Seen HPF (0-3); Urobilinogen Normal mg/dL (Less than 2); WBC/HPF 0-3 HPF (0-3); pH, Urine 6.5 (5.0-9.0)
[2023-11-29 07:04] LABS: Anisocytosis SLIGHT = 6-15 cells HPF (0-5); Burr Cells SLIGHT = 2-5 cells HPF (0-1); Elliptocytes SLIGHT = 2-5 cells HPF (0-1); Lymphocytes 69 % (21-51); Monocytes 1 % (0-10); Neutrophil 30 % (42-75); Platelet Adequacy Comment Platelets Normal; Poikilocytosis SLIGHT = 6-15 cells HPF (0-5); Polychromasia SLIGHT = 2-3 cells HPF (0-2); Smudge Cells 64.3 %
[2023-11-29] MEDS ORDERED: Sodium Chloride 0.9% 100 ML ONE (07:12)
[2023-11-29] MEDS ORDERED: Cefepime 2 GM VIAL ONE (07:12)
[2023-11-29 07:25] LABS: Amphetamine Not Detected (NotDetected); Barbiturates Screen Not Detected (NotDetected); Benzodiazepine Screen Detected (NotDetected); Cocaine Metabolite Screen Not Detected (NotDetected); Methadone Not Detected (NotDetected); Methamphetamine Not Detected (NotDetected); Opiate Screen Not Detected (NotDetected); Oxycodone Screen Not Detected (NotDetected); Phencyclidine (PCP) Not Detected (NotDetected); THC/Cannabinoid Screen Not Detected (NotDetected); Tricyclic Screen Not Detected (NotDetected); Urine Culture Reflex No No
[2023-11-29 07:30] LABS: PTT 26.9 sec (22.9-36.1); Prothrombin Time 12.9 sec (12.0-14.7)
[2023-11-29 07:56] LABS: Acetaminophen Less than 10 mcg/mL (Less than 10); Alcohol Less than 10.0 mg/dL (Less than 10); Salicylate Less than 8.0 mg/dL (Less than 8.0)
[2023-11-29] MEDS ORDERED: Acetaminophen 325 MG TAB PO PRN (08:11)
[2023-11-29] MEDS ORDERED: Acetaminophen 650 MG Suppository PR PRN (08:11)
[2023-11-29] MEDS ORDERED: niCARdipine 25 MG in Sodium Chloride 0.9% 250 ML 250 ML IVPB PRN (08:12)
[2023-11-29] MEDS ORDERED: Propofol BOLUS 1,000 MG/100 ML VIAL IV PRN (08:30)
[2023-11-29] MEDS: Sodium Chloride 0.9% 1,000 ML IV SCH (08:30)
[2023-11-29] MEDS: Vancomycin (BATCH) 2 GM in Premix 1 BAG IVPB SCH (08:30)
[2023-11-29] MEDS ORDERED: Fentanyl CADD 100 ML IV SCH (08:30)
[2023-11-29] MEDS ORDERED: DISCONTINUE PREVIOUS NARCOTIC PAIN MEDICATIONS AND BENZODIAZEPINES FS SCH (08:30)
[2023-11-29] MEDS ORDERED: Fentanyl BOLUS 250 ML IVPB PRN (08:30)
[2023-11-29] MEDS ORDERED: Vancomycin 1 GM in Premix 1 BAG IVPB SCH (09:00)
[2023-11-29] MEDS: Famotidine/PF 20 mg/2ml Vial SLOW IVP SCH (09:14)
[2023-11-29] MEDS: Ventilator Sedation Protocol 1 EACH FS SCH (09:15)
[2023-11-29] MEDS: Enoxaparin 40 MG (0.4 mL) SYRINGE SC SCH (09:33)
[2023-11-29] MEDS ORDERED: levETIRAcetam 500 MG (5 mL) VIAL SLOW IVP SCH ×2 (10:00→21:00)
[2023-11-29] MEDS ORDERED: Iopamidol-370 76% 500 ML MDV (1 ML CHARGE) ONE (10:33)
[2023-11-29] MEDS: Lorazepam 2 MG/ML VIAL SLOW IVP PRN (13:33)
[2023-11-29] MEDS: Ipratropium/Albuterol 3 ML NEB NEB SCH (14:57)
[2023-11-29] MEDS: Morphine 2 MG/ML VIAL SLOW IVP PRN (14:58)
[2023-11-29] MEDS: Propofol 1,000 MG/100 ML VIAL IV PRN (15:29)
[2023-11-29] MEDS: levETIRAcetam 500 MG (5 mL) VIAL SLOW IVP SCH (20:39)
[2023-11-29] MEDS: Cefepime 1 GM in Sodium Chloride 0.9% 100 ML IVPB SCH (20:39)
[2023-11-30] MEDS: Albumin 25% 25 GM (100 mL) BOT IVPB SCH (00:14)
[2023-11-30] MEDS: Sodium Chloride 0.9% 1,000 ML IV SCH (00:14)
[2023-11-30] MEDS: Sodium Chloride 0.9% 500 ML IV SCH (00:14)
[2023-11-30] MEDS: NOREPINEPHRINE 8 MG/250 ML-D5W 250 ML IVPB SCH (02:05)
[2023-11-30] MEDS: NOREPINEPHRINE 8 MG/250 ML-D5W 250 ML ONE (02:45)
[2023-11-30 04:39] LABS: ALT (SGPT) Less than 5 U/L (8-55); AST (SGOT) 12 U/L (5-34); Albumin 2.8 g/dL (3.4-4.8); Alkaline Phosphatase 47 U/L (40-110); Anion Gap 16 mmol/L (10-20); BUN (Urea Nitrogen) 22 mg/dL (8.4-25.7); Bilirubin, Total 0.5 mg/dL (0.2-1.2); Calc. Creatinine Clearance 41 mL/min (70-130); Calcium 7.9 mg/dL (7.8-10.44); Carbon Dioxide 15 mmol/L (23-31); Chloride 109 mmol/L (98-107); Estimated GFR 46; Globulin 2.2 g/dL (2.4-3.5); Glucose 97 mg/dL (83-110); Potassium 3.3 mmol/L (3.5-5.1); Sodium 137 mmol/L (136-145)
[2023-11-30 04:43] LABS: Hematocrit 28.4 % (42.0-52.0); Hemoglobin 8.8 g/dL (14.0-18.0); Mean Corpuscular Hemoglobin 29.5 pg (27.0-31.0); Mean Corpuscular Volume 95.3 fL (78.0-98.0); Mean Platelet Volume 8.6 fL (7.4-10.4); Platelet Count 332 10x3/uL (130-400); RBC Distribution Width 13.8 % (11.5-14.5); Red Blood Cell (RBC) Count 2.98 mill/uL (4.70-6.10)
[2023-11-30 06:08] LABS: Band 17 % (5-11); Burr Cells SLIGHT = 2-5 cells HPF (0-1); Lymphocytes 46 % (21-51); Macrocytosis SLIGHT = 6-15 cells HPF (0-5); Metamyelocyte 5 % (0-0); Myelocyte 1 % (0-0); Neutrophil 31 % (42-75); Platelet Adequacy Comment Platelets Normal; Poikilocytosis MODERATE=16-30 cells HPF (0-5); Polychromasia SLIGHT = 2-3 cells HPF (0-2); Smudge Cells 51.8 %; Toxic Granulation MODERATE
[2023-11-30 08:04] LABS: Actual Bicarbonate (HCO3a) 16.1 mEq/L (22-28); CO2 Tension 25.1 mmHg (35.0-45.0); Carboxyhemoglobin (COHb) 0.5 gm% (0.0-3.0); Hematocrit-ABG 28 % (42.0-52.0); Hemoglobin (Hb) 9.4 g/dL (14.0-18.0); O2 Tension (PaO2), arterial 129.7 mmHg (> 70.0); Potassium - ABG Lab 3.37 mmol/L (3.70-5.30); pH, Arterial 7.426 (7.35-7.45)
[2023-11-30 08:14] LABS: ALV-art Gradient 195.425 mmHg (0-20); Puncture Site Left Brachial artery
[2023-11-30] MEDS: Magnesium 2 GM/50 ML(in water) 2 GM in Premix 1 BAG IVPB SCH (09:07)
[2023-11-30 09:19] LABS: Magnesium 1.3 mg/dL (1.6-2.6); Phosphorus 3.7 mg/dL (2.3-4.7)
[2023-11-30] MEDS: Potassium Chloride 20 MEQ in Premix 1 BAG IVPB SCH (10:18)
[2023-11-30] MEDS: Potassium Chloride 40 MEQ in Premix 1 BAG IVPB SCH (16:30)
[2023-12-01 06:58] LABS: Anion Gap 16 mmol/L (10-20); BUN (Urea Nitrogen) 22 mg/dL (8.4-25.7); Calc. Creatinine Clearance 51 mL/min (70-130); Calcium 8.3 mg/dL (7.8-10.44); Carbon Dioxide 12 mmol/L (23-31); Chloride 115 mmol/L (98-107); Estimated GFR 55; Glucose 93 mg/dL (83-110); Potassium 3.6 mmol/L (3.5-5.1); Sodium 139 mmol/L (136-145)
[2023-12-01 08:20] LABS: Band 30 % (5-11); Burr Cells MARKED = >16 cells HPF (0-1); Hematocrit 25.1 % (42.0-52.0); Hemoglobin 8.2 g/dL (14.0-18.0); Lymphocytes 20 % (21-51); Mean Corpuscular HGB CONC 32.7 g/dL (32.0-36.0); Mean Corpuscular Hemoglobin 29.8 pg (27.0-31.0); Mean Corpuscular Volume 91.3 fL (78.0-98.0); Mean Platelet Volume 9.1 fL (7.4-10.4); Metamyelocyte 1 % (0-0); Neutrophil 48 % (42-75); Platelet Adequacy Comment Platelets Normal; Platelet Count 286 10x3/uL (130-400); Polychromasia SLIGHT = 2-3 cells HPF (0-2); RBC Distribution Width 13.8 % (11.5-14.5); Reactive Lymphocytes 1 % (0-10); Red Blood Cell (RBC) Count 2.75 mill/uL (4.70-6.10); Toxic Granulation SLIGHT
[2023-12-01] MEDS ORDERED: traMADol HCl 50 MG TAB PO PRN (12:31)
[2023-12-01] MEDS: OLANZapine 10 MG VIAL IM SCH (13:03)
[2023-12-01] MEDS: Dextrose 5 %-0.45 % NaCl 1,000 ML IV SCH (13:03)
[2023-12-01] MEDS: traMADol HCl 50 MG TAB PO SCH (13:13)
[2023-12-01] MEDS: Carvedilol 6.25 MG TAB PO SCH ×2 (13:47→16:08)
[2023-12-01] MEDS: Pantoprazole 40 MG VIAL IVP SCH (13:56)
[2023-12-01] MEDS: hydrALAZINE 20 MG/ML VIAL SLOW IVP SCH (13:57)
[2023-12-01] MEDS: Labetalol HCl 100 MG/20 ML VIAL SLOW IVP SCH (14:09)
[2023-12-01] MEDS: Morphine 4 MG/ML VIAL SLOW IVP PRN (15:22)
[2023-12-01] MEDS: Dexmedetomidine In 0.9 % NaCl 100 ML IV SCH (16:12)
[2023-12-01] MEDS: QUEtiapine 25 MG TAB PO SCH (20:42)
[2023-12-01] MEDS: Tamsulosin HCl 0.4 MG CAP PO SCH (20:42)
[2023-12-02 07:32] LABS: Hematocrit 27.3 % (42.0-52.0); Hemoglobin 8.7 g/dL (14.0-18.0); Mean Corpuscular HGB CONC 31.9 g/dL (32.0-36.0); Mean Corpuscular Hemoglobin 30.4 pg (27.0-31.0); Mean Corpuscular Volume 95.5 fL (78.0-98.0); Mean Platelet Volume 8.6 fL (7.4-10.4); Platelet Count 302 10x3/uL (130-400); RBC Distribution Width 13.9 % (11.5-14.5); Red Blood Cell (RBC) Count 2.86 mill/uL (4.70-6.10)
[2023-12-02 07:55] LABS: Albumin 2.5 g/dL (3.4-4.8); Anion Gap 13 mmol/L (10-20); BUN (Urea Nitrogen) 23 mg/dL (8.4-25.7); BUN/Creatinine Ratio 18.25; Calc. Creatinine Clearance 55 mL/min (70-130); Calcium 8.8 mg/dL (7.8-10.44); Carbon Dioxide 14 mmol/L (23-31); Chloride 115 mmol/L (98-107); Estimated GFR 60; Glucose 126 mg/dL (83-110); Phosphorus 3.3 mg/dL (2.3-4.7); Potassium 3.6 mmol/L (3.5-5.1); Sodium 138 mmol/L (136-145)
[2023-12-02 08:23] LABS: Anisocytosis SLIGHT = 6-15 cells HPF (0-5); Band 17 % (5-11); Burr Cells MARKED = >16 cells HPF (0-1); Lymphocytes 39 % (21-51); Macrocytosis SLIGHT = 6-15 cells HPF (0-5); Neutrophil 44 % (42-75); Ovalocytes SLIGHT = 2-5 cells HPF (0-1); Platelet Adequacy Comment Platelets Normal; Poikilocytosis MARKED = >30 cells HPF (0-5); Polychromasia SLIGHT = 2-3 cells HPF (0-2); Reactive Lymphocytes 1 % (0-10)
[2023-12-02] MEDS ORDERED: Fentanyl 100 MCG/2 ML VIAL SLOW IVP PRN (08:33)
[2023-12-02] MEDS: Levothyroxine Sodium 75 MCG TAB PO SCH (10:02)
[2023-12-02] MEDS ORDERED: traMADol HCl 50 MG TAB PO SCH (10:05)
[2023-12-02] MEDS: traMADol HCl 50 MG TAB PO SCH ×2 (11:58→21:39)
[2023-12-02] MEDS: Sodium Bicarbonate 70 MEQ in Sodium Chloride 0.45% 1,000 ML IV SCH (11:59)
[2023-12-02] MEDS: fentaNYL 50 mcg/mL 1 mL Vial SLOW IVP PRN (17:28)
[2023-12-03 05:11] LABS: Hematocrit 27.1 % (42.0-52.0); Hemoglobin 8.7 g/dL (14.0-18.0); Mean Corpuscular HGB CONC 32.1 g/dL (32.0-36.0); Mean Corpuscular Hemoglobin 29.7 pg (27.0-31.0); Mean Corpuscular Volume 92.5 fL (78.0-98.0); Platelet Count 335 10x3/uL (130-400); RBC Distribution Width 13.9 % (11.5-14.5); Red Blood Cell (RBC) Count 2.93 mill/uL (4.70-6.10)
[2023-12-03 05:13] LABS: Anion Gap 17 mmol/L (10-20); BUN (Urea Nitrogen) 25 mg/dL (8.4-25.7); Calc. Creatinine Clearance 56 mL/min (70-130); Calcium 8.7 mg/dL (7.8-10.44); Carbon Dioxide 13 mmol/L (23-31); Chloride 114 mmol/L (98-107); Estimated GFR 61; Glucose 75 mg/dL (83-110); Potassium 3.7 mmol/L (3.5-5.1); Sodium 140 mmol/L (136-145)
[2023-12-03 06:12] LABS: Anisocytosis SLIGHT = 6-15 cells HPF (0-5); Band 6 % (5-11); Dohle Bodies SLIGHT; Eosinophils 1 % (0-10); Lymphocytes 46 % (21-51); Neutrophil 47 % (42-75); Ovalocytes SLIGHT = 2-5 cells HPF (0-1); Platelet Adequacy Comment Platelets Normal; Poikilocytosis SLIGHT = 6-15 cells HPF (0-5); Polychromasia SLIGHT = 2-3 cells HPF (0-2); Smudge Cells 79.2 %; Toxic Granulation MODERATE; Vacuoles SLIGHT
[2023-12-03] MEDS: Sodium Bicarbonate 140 MEQ in Dextrose 5% in Water 1,000 ML IV SCH (09:45)
[2023-12-03 12:30] LABS: Magnesium 1.8 mg/dL (1.6-2.6)
[2023-12-03] MEDS: Cefepime 2 GM in Sodium Chloride 0.9% 100 ML IVPB SCH (20:35)
[2023-12-04 05:39] LABS: Anion Gap 14 mmol/L (10-20); BUN (Urea Nitrogen) 19 mg/dL (8.4-25.7); Calc. Creatinine Clearance 61 mL/min (70-130); Calcium 8.4 mg/dL (7.8-10.44); Carbon Dioxide 19 mmol/L (23-31); Chloride 110 mmol/L (98-107); Estimated GFR 67; Glucose 101 mg/dL (83-110); Potassium 2.9 mmol/L (3.5-5.1); Sodium 140 mmol/L (136-145)
[2023-12-04 05:40] LABS: Hematocrit 25.6 % (42.0-52.0); Hemoglobin 8.4 g/dL (14.0-18.0); Mean Corpuscular HGB CONC 32.8 g/dL (32.0-36.0); Mean Corpuscular Hemoglobin 29.6 pg (27.0-31.0); Mean Corpuscular Volume 90.1 fL (78.0-98.0); Platelet Count 354 10x3/uL (130-400); RBC Distribution Width 13.9 % (11.5-14.5); Red Blood Cell (RBC) Count 2.84 mill/uL (4.70-6.10)
[2023-12-04] MEDS ORDERED: Electrolyte Replacement Protocol 1 EACH FS SCH (06:45)
[2023-12-04] MEDS ORDERED: Electrolyte Replacement Protocol FS PRN (07:15)
[2023-12-04 08:08] LABS: Anisocytosis SLIGHT = 6-15 cells HPF (0-5); Band 4 % (5-11); Burr Cells MODERATE= 6-15 cells HPF (0-1); Eosinophils 1 % (0-10); Lymphocytes 71 % (21-51); Monocytes 1 % (0-10); Neutrophil 20 % (42-75); Platelet Adequacy Comment Platelets Normal; Polychromasia SLIGHT = 2-3 cells HPF (0-2); Reactive Lymphocytes 3 % (0-10); Schistocytes SLIGHT = 2-5 cells HPF (0-1)
[2023-12-04 08:30] LABS: Poikilocytosis SLIGHT = 6-15 cells HPF (0-5)
[2023-12-04] MEDS: Potassium Chloride 20 MEQ in Premix 1 BAG IVPB SCH (08:53)
[2023-12-04] MEDS: Magnesium 2 GM/50 ML(in water) 2 GM in Premix 1 BAG IVPB SCH (08:54)
[2023-12-04 19:11] LABS: Potassium 3.9 mmol/L (3.5-5.1)
[2023-12-04] MEDS: QUEtiapine 25 MG TAB PO SCH (20:11)
[2023-12-05 06:32] LABS: Hematocrit 27.8 % (42.0-52.0); Mean Corpuscular HGB CONC 32.4 g/dL (32.0-36.0); Mean Corpuscular Hemoglobin 29.6 pg (27.0-31.0); Mean Corpuscular Volume 91.4 fL (78.0-98.0); Mean Platelet Volume 9.2 fL (7.4-10.4); Platelet Count 369 10x3/uL (130-400); RBC Distribution Width 14.2 % (11.5-14.5); Red Blood Cell (RBC) Count 3.04 mill/uL (4.70-6.10)
[2023-12-05 06:38] LABS: Anion Gap 14 mmol/L (10-20); BUN (Urea Nitrogen) 15 mg/dL (8.4-25.7); Calc. Creatinine Clearance 72 mL/min (70-130); Calcium 8.3 mg/dL (7.8-10.44); Carbon Dioxide 24 mmol/L (23-31); Chloride 107 mmol/L (98-107); Estimated GFR 85; Glucose 118 mg/dL (83-110); Magnesium 2.1 mg/dL (1.6-2.6); Potassium 3.5 mmol/L (3.5-5.1); Sodium 141 mmol/L (136-145)
[2023-12-05 08:13] LABS: Band 5 % (5-11); Burr Cells SLIGHT = 2-5 cells HPF (0-1); Eosinophils 1 % (0-10); Lymphocytes 44 % (21-51); Monocytes 1 % (0-10); Neutrophil 49 % (42-75); Platelet Adequacy Comment Platelets Normal; Schistocytes MODERATE= 6-15 cells HPF (0-1)
[2023-12-05] MEDS: Potassium Chloride 20 MEQ TAB PO SCH (08:29)
[2023-12-05 14:57] LABS: Potassium 3.8 mmol/L (3.5-5.1)
[2023-12-05] MEDS: Ipratropium/Albuterol 3 ML NEB NEB SCH (16:15)
[2023-12-05] MEDS: Famotidine 20 MG TAB PO SCH (21:18)
[2023-12-05] MEDS: QUEtiapine 25 MG TAB PO SCH (21:25)
[2023-12-06 05:28] LABS: Hematocrit 24.4 % (42.0-52.0); Hemoglobin 7.8 g/dL (14.0-18.0); Mean Corpuscular Hemoglobin 29.1 pg (27.0-31.0); Mean Platelet Volume 9.3 fL (7.4-10.4); Platelet Count 321 10x3/uL (130-400); RBC Distribution Width 14.2 % (11.5-14.5); Red Blood Cell (RBC) Count 2.68 mill/uL (4.70-6.10)
[2023-12-06 05:39] LABS: Anion Gap 12 mmol/L (10-20); BUN (Urea Nitrogen) 14 mg/dL (8.4-25.7); Calc. Creatinine Clearance 72 mL/min (70-130); Calcium 7.9 mg/dL (7.8-10.44); Carbon Dioxide 26 mmol/L (23-31); Chloride 108 mmol/L (98-107); Estimated GFR 79; Glucose 106 mg/dL (83-110); Potassium 3.6 mmol/L (3.5-5.1); Sodium 142 mmol/L (136-145)
[2023-12-06 06:29] LABS: Anisocytosis SLIGHT = 6-15 cells HPF (0-5); Band 2 % (5-11); Elliptocytes SLIGHT = 2-5 cells HPF (0-1); Eosinophils 1 % (0-10); Large Platelets 1.4 % (0-5); Lymphocytes 62 % (21-51); Monocytes 2 % (0-10); Neutrophil 33 % (42-75); Platelet Adequacy Comment Platelets Normal; Polychromasia SLIGHT = 2-3 cells HPF (0-2); Smudge Cells 82.6 %; Target Cells SLIGHT = 2-5 cells HPF (0-1); Toxic Granulation SLIGHT
[2023-12-06] MEDS: levETIRAcetam 500 MG (5 mL) VIAL SLOW IVP SCH (20:45)
[2023-12-07] MEDS: hydrALAZINE 20 MG/ML VIAL SLOW IVP SCH (00:14)
[2023-12-07 05:22] LABS: Hematocrit 28.9 % (42.0-52.0); Hemoglobin 9.2 g/dL (14.0-18.0); Mean Corpuscular HGB CONC 31.8 g/dL (32.0-36.0); Mean Corpuscular Hemoglobin 29.2 pg (27.0-31.0); Mean Corpuscular Volume 91.7 fL (78.0-98.0); Mean Platelet Volume 9.5 fL (7.4-10.4); Platelet Count 385 10x3/uL (130-400); RBC Distribution Width 14.4 % (11.5-14.5); Red Blood Cell (RBC) Count 3.15 mill/uL (4.70-6.10)
[2023-12-07 05:40] LABS: Anion Gap 15 mmol/L (10-20); BUN (Urea Nitrogen) 14 mg/dL (8.4-25.7); Calc. Creatinine Clearance 76 mL/min (70-130); Calcium 8.3 mg/dL (7.8-10.44); Carbon Dioxide 25 mmol/L (23-31); Chloride 104 mmol/L (98-107); Estimated GFR 85; Glucose 95 mg/dL (83-110); Potassium 3.6 mmol/L (3.5-5.1); Sodium 140 mmol/L (136-145)
[2023-12-07 07:05] LABS: Band 1 % (5-11); Lymphocytes 70 % (21-51); Neutrophil 29 % (42-75); Platelet Adequacy Comment Platelets Normal; Polychromasia SLIGHT = 2-3 cells HPF (0-2); Smudge Cells 1.7 %
[2023-12-07] MEDS: Amlodipine 5 MG TAB PO SCH (12:27)
[2023-12-07] MEDS: levETIRAcetam 500 MG TAB PO SCH (21:16)
[2023-12-08 05:17] LABS: Anion Gap 15 mmol/L (10-20); BUN (Urea Nitrogen) 14 mg/dL (8.4-25.7); Calc. Creatinine Clearance 60 mL/min (70-130); Calcium 8.4 mg/dL (7.8-10.44); Carbon Dioxide 26 mmol/L (23-31); Chloride 103 mmol/L (98-107); Estimated GFR 72; Glucose 99 mg/dL (83-110); Potassium 3.5 mmol/L (3.5-5.1); Sodium 140 mmol/L (136-145)
[2023-12-08 05:41] LABS: Hematocrit 27.8 % (42.0-52.0); Hemoglobin 8.9 g/dL (14.0-18.0); Mean Corpuscular Hemoglobin 29.6 pg (27.0-31.0); Mean Corpuscular Volume 92.4 fL (78.0-98.0); Mean Platelet Volume 9.5 fL (7.4-10.4); Platelet Count 402 10x3/uL (130-400); RBC Distribution Width 14.4 % (11.5-14.5); Red Blood Cell (RBC) Count 3.01 mill/uL (4.70-6.10)
[2023-12-08 06:18] LABS: Anisocytosis SLIGHT = 6-15 cells HPF (0-5); Band 9 % (5-11); Eosinophils 1 % (0-10); Hypochromia SLIGHT = 6-15 cells HPF (0-5); Large Platelets 2.1 % (0-5); Lymphocytes 29 % (21-51); Neutrophil 60 % (42-75); Platelet Adequacy Comment Platelets Normal; Reactive Lymphocytes 1 % (0-10); Smudge Cells 141.2 %
[2023-12-08] MEDS: Potassium Chloride 20 MEQ TAB PO SCH (08:59)
[2023-12-08] MEDS: Cyanocobalamin (Vitamin B-12) 1,000 MCG TAB PO SCH (08:59)
[2023-12-08] MEDS: Amlodipine 5 MG TAB PO SCH (09:00)
[2023-12-08] MEDS: Cefdinir 300 MG CAP PO SCH (20:31)
[2023-12-09 04:55] LABS: Anion Gap 13 mmol/L (10-20); BUN (Urea Nitrogen) 12 mg/dL (8.4-25.7); Calc. Creatinine Clearance 63 mL/min (70-130); Calcium 8.2 mg/dL (7.8-10.44); Carbon Dioxide 26 mmol/L (23-31); Chloride 104 mmol/L (98-107); Estimated GFR 76; Glucose 92 mg/dL (83-110); Potassium 3.5 mmol/L (3.5-5.1); Sodium 139 mmol/L (136-145)
[2023-12-09 04:59] LABS: Hematocrit 26.5 % (42.0-52.0); Hemoglobin 8.4 g/dL (14.0-18.0); Mean Corpuscular HGB CONC 31.7 g/dL (32.0-36.0); Mean Corpuscular Hemoglobin 29.7 pg (27.0-31.0); Mean Corpuscular Volume 93.6 fL (78.0-98.0); Mean Platelet Volume 9.4 fL (7.4-10.4); Platelet Count 406 10x3/uL (130-400); RBC Distribution Width 14.4 % (11.5-14.5); Red Blood Cell (RBC) Count 2.83 mill/uL (4.70-6.10)
[2023-12-09 06:05] LABS: Band 3 % (5-11); Eosinophils 1 % (0-10); Large Platelets 1.7 % (0-5); Lymphocytes 64 % (21-51); Neutrophil 33 % (42-75); Platelet Adequacy Comment Platelets Normal; RBC Morphology Within Normal Limits; Smudge Cells 11.2 %
[2023-12-09] MEDS: Potassium Chloride 20 MEQ TAB PO SCH (08:11)
[2023-12-09] MEDS: Haloperidol 1 MG TAB PO SCH (16:23)
[2023-12-09] MEDS: Lorazepam 2 MG/ML VIAL SLOW IVP SCH (18:41)
[2023-12-10 03:23] VITALS: BMI 19.9
[2023-12-10 06:03] LABS: Anion Gap 16 mmol/L (10-20); BUN (Urea Nitrogen) 13 mg/dL (8.4-25.7); Calc. Creatinine Clearance 63 mL/min (70-130); Calcium 8.4 mg/dL (7.8-10.44); Carbon Dioxide 23 mmol/L (23-31); Chloride 105 mmol/L (98-107); Estimated GFR 80; Glucose 91 mg/dL (83-110); Potassium 3.8 mmol/L (3.5-5.1); Sodium 140 mmol/L (136-145)
[2023-12-10 06:08] LABS: Hematocrit 28.1 % (42.0-52.0); Hemoglobin 8.8 g/dL (14.0-18.0); Mean Corpuscular HGB CONC 31.3 g/dL (32.0-36.0); Mean Corpuscular Volume 92.7 fL (78.0-98.0); Mean Platelet Volume 9.2 fL (7.4-10.4); Platelet Count 451 10x3/uL (130-400); RBC Distribution Width 14.2 % (11.5-14.5); Red Blood Cell (RBC) Count 3.03 mill/uL (4.70-6.10)
[2023-12-10 07:16] LABS: Anisocytosis SLIGHT = 6-15 cells HPF (0-5); Band 8 % (5-11); Eosinophils 1 % (0-10); Lymphocytes 27 % (21-51); Macrocytosis SLIGHT = 6-15 cells HPF (0-5); Monocytes 1 % (0-10); Neutrophil 63 % (42-75); Platelet Adequacy Comment Platelets Normal; Polychromasia SLIGHT = 2-3 cells HPF (0-2); Smudge Cells 187.9 %
[2023-12-10] MEDS: levETIRAcetam 500 mg/5 ml Oral Solution PO SCH (08:45)
[2023-12-10] MEDS: LevoFLOXacin 750 mg/D5W 750 MG in Premix 1 BAG IVPB SCH (15:50)
[2023-12-11 06:02] LABS: Hematocrit 27.6 % (42.0-52.0); Hemoglobin 8.5 g/dL (14.0-18.0); Mean Corpuscular HGB CONC 30.8 g/dL (32.0-36.0); Mean Corpuscular Hemoglobin 28.5 pg (27.0-31.0); Mean Corpuscular Volume 92.6 fL (78.0-98.0); Mean Platelet Volume 9.3 fL (7.4-10.4); Platelet Count 455 10x3/uL (130-400); RBC Distribution Width 14.5 % (11.5-14.5); Red Blood Cell (RBC) Count 2.98 mill/uL (4.70-6.10)
[2023-12-11 06:51] LABS: Eosinophils 1 % (0-10); Lymphocytes 76 % (21-51); Monocytes 1 % (0-10); Neutrophil 22 % (42-75); Platelet Adequacy Comment Platelets Normal; Polychromasia SLIGHT = 2-3 cells HPF (0-2); Smudge Cells 4.4 %
[2023-12-11 18:50] LABS: Bacteria/HPF None Seen HPF (None Seen); Bilirubin Negative (Negative); Blood, Urine Trace (Negative); Clarity Clear (Clear); Glucose, Urine (Dipstick) Normal (Negative); Ketone, Urine Negative (Negative); Leukocyte Negative Leu/uL (Negative); Nitrite Negative (Negative); Protein, Urine (Dipstick) 100 mg/dL (Neg-Trace); RBC/HPF None Seen HPF (0-3); Specific Gravity, Urine 1.012 (1.002-1.036); Squamous Epithelial None Seen HPF (0-3); Urobilinogen Normal mg/dL (Less than 2); WBC/HPF 0-3 HPF (0-3)
[2023-12-12] MEDS: Levothyroxine Sodium 75 MCG TAB PO SCH (05:11)
[2023-12-12 06:02] LABS: Hematocrit 26.8 % (42.0-52.0); Hemoglobin 8.4 g/dL (14.0-18.0); Mean Corpuscular HGB CONC 31.3 g/dL (32.0-36.0); Mean Corpuscular Hemoglobin 29.3 pg (27.0-31.0); Mean Corpuscular Volume 93.4 fL (78.0-98.0); Mean Platelet Volume 9.5 fL (7.4-10.4); Platelet Count 472 10x3/uL (130-400); RBC Distribution Width 14.3 % (11.5-14.5); Red Blood Cell (RBC) Count 2.87 mill/uL (4.70-6.10)
[2023-12-12 08:27] LABS: Band 5 % (5-11); Large Platelets 5.3 % (0-5); Lymphocytes 32 % (21-51); Monocytes 2 % (0-10); Neutrophil 60 % (42-75); Platelet Adequacy Comment Platelets Normal; Polychromasia SLIGHT = 2-3 cells HPF (0-2); Reactive Lymphocytes 1 % (0-10); Schistocytes SLIGHT = 2-5 cells HPF (0-1)
[2023-12-12 14:14] VITALS: BMI 19.7
[2023-12-12 15:32] VITALS: BP 138/70; TEMP 98.1
== END 2023-12-12 15:33 | disposition swing bed (61) | DRG 208 ==
LOC: ERS 04:07 → CCU 07:47 → MSONC 12-05 14:28
PROVIDERS: ADMIT Family Medicine; ATTEND Family Medicine
PROC: 0T9B70Z Drainage of Bladder with Drainage Device, Via Natural or Artificial Opening (ICD-10-PCS; principal; 2023-11-29)
PROC: 5A1945Z Respiratory Ventilation, 24-96 Consecutive Hours (ICD-10-PCS; 2023-11-29)
PROC: 0BH17EZ Insertion of Endotracheal Airway into Trachea, Via Natural or Artificial Opening (ICD-10-PCS; 2023-11-29)
PROC: 4A00X4Z Measurement of Central Nervous Electrical Activity, External Approach (ICD-10-PCS; 2023-11-29)
PROC: 4A133R1 Monitoring of Arterial Saturation, Peripheral, Percutaneous Approach (ICD-10-PCS; 2023-11-29)
PROC: 3E03329 Introduction of Other Anti-infective into Peripheral Vein, Percutaneous Approach (ICD-10-PCS; 2023-11-29)
PROC: 30233J1 Transfusion of Nonautologous Serum Albumin into Peripheral Vein, Percutaneous Approach (ICD-10-PCS; 2023-11-29)
PROC: 3E033XZ Introduction of Vasopressor into Peripheral Vein, Percutaneous Approach (ICD-10-PCS; 2023-11-30)
PROC: 5A09457 Assistance with Respiratory Ventilation, 24-96 Consecutive Hours, Continuous Positive Airway Pressure (ICD-10-PCS; 2023-12-01)
DX: J96.01 Acute respiratory failure with hypoxia (principal); J69.0 Pneumonitis due to inhalation of food and vomit; G93.41 Metabolic encephalopathy; A41.9 Sepsis, unspecified organism; R65.21 Severe sepsis with septic shock; I67.4 Hypertensive encephalopathy; C15.9 Malignant neoplasm of esophagus, unspecified; N17.9 Acute kidney failure, unspecified; E87.21 Acute metabolic acidosis; C85.90 Non-Hodgkin lymphoma, unspecified, unspecified site; Z79.899 Other long term (current) drug therapy; I10 Essential (primary) hypertension; Z96.653 Presence of artificial knee joint, bilateral; F17.220 Nicotine dependence, chewing tobacco, uncomplicated; E03.9 Hypothyroidism, unspecified; Z51.5 Encounter for palliative care; D64.9 Anemia, unspecified; N40.0 Benign prostatic hyperplasia without lower urinary tract symptoms; G40.909 Epilepsy, unspecified, not intractable, without status epilepticus; E87.6 Hypokalemia; E83.42 Hypomagnesemia; Z66 Do not resuscitate
CPT/HCPCS: 31500; 36415; 36416; 36600; 51702; 70450; 70496; 70498; 71045; 71275; 74018; 74230; 80048; 80053; 80069; 80306; 80307; 81001; 81003; 81015; 82805; 83605; 83735; 83880; 84100; 84145; 84146; 84439; 84443; 84481; 84484; 85025; 85610; 85730; 87040; 87086; 93005; 94002; 94003; 94640; 94660; 96365; 96366; 96375; J0360; J0692; J1650; J1953; J1956; J2060; J2272; J2470; J2704; J3010; J3370; J3475; J3480; J3490; J7030; J7042; J7070; J7620; P9047; Q9967

== ENCOUNTER 2023-12-13 22:28 | Inpatient (IN) | payer MEDICARE ==
[2023-12-14] MEDS ORDERED: hydrALAZINE 20 MG/ML VIAL SLOW IVP PRN (00:12)
[2023-12-14] MEDS ORDERED: Labetalol HCl 100 MG/20 ML VIAL SLOW IVP PRN (00:12)
[2023-12-14] MEDS ORDERED: Acetaminophen 325 MG TAB PO PRN (00:16)
[2023-12-14] MEDS ORDERED: Ketorolac Tromethamine 30 MG (1 mL) VIAL IVP PRN (00:16)
[2023-12-14] MEDS ORDERED: Ondansetron ODT 4 MG TAB PO PRN (00:16)
[2023-12-14] MEDS ORDERED: Ondansetron PF 4 MG/2 ML Vial IVP PRN (00:16)
[2023-12-14] MEDS ORDERED: traMADol HCl 50 MG TAB PO PRN (00:16)
[2023-12-14 01:35] LABS: Hematocrit 26.7 % (42.0-52.0); Hemoglobin 8.5 g/dL (14.0-18.0); Mean Corpuscular HGB CONC 31.8 g/dL (32.0-36.0); Mean Corpuscular Hemoglobin 29.5 pg (27.0-31.0); Mean Corpuscular Volume 92.7 fL (78.0-98.0); Mean Platelet Volume 9.1 fL (7.4-10.4); Platelet Count 458 10x3/uL (130-400); RBC Distribution Width 14.6 % (11.5-14.5); Red Blood Cell (RBC) Count 2.88 mill/uL (4.70-6.10)
[2023-12-14 01:54] LABS: Anisocytosis SLIGHT = 6-15 cells HPF (0-5); Band 2 % (5-11); Lymphocytes 37 % (21-51); Macrocytosis SLIGHT = 6-15 cells HPF (0-5); Metamyelocyte 1 % (0-0); Monocytes 1 % (0-10); Neutrophil 59 % (42-75); Ovalocytes SLIGHT = 2-5 cells HPF (0-1); Platelet Adequacy Comment Platelets Normal; Polychromasia SLIGHT = 2-3 cells HPF (0-2); Schistocytes SLIGHT = 2-5 cells HPF (0-1); Toxic Granulation SLIGHT; Vacuoles SLIGHT
[2023-12-14] MEDS: cefTRIAXone\\ROCEPHIN 1 GM in Sodium Chloride 0.9% 100 ML IVPB SCH (02:37)
[2023-12-14] MEDS: Enoxaparin 40 MG (0.4 mL) SYRINGE SC SCH (02:38)
[2023-12-14 03:02] LABS: ALT (SGPT) 5 U/L (8-55); AST (SGOT) 11 U/L (5-34); Albumin 2.2 g/dL (3.4-4.8); Alkaline Phosphatase 40 U/L (40-110); Anion Gap 14 mmol/L (10-20); BUN (Urea Nitrogen) 17 mg/dL (8.4-25.7); Bilirubin, Total 0.3 mg/dL (0.2-1.2); Calc. Creatinine Clearance 0 mL/min (70-130); Calcium 7.9 mg/dL (7.8-10.44); Carbon Dioxide 19 mmol/L (23-31); Chloride 103 mmol/L (98-107); Estimated GFR 56; Globulin 2.7 g/dL (2.4-3.5); Glucose 183 mg/dL (83-110); Potassium 3.7 mmol/L (3.5-5.1); Protein, Total 4.9 g/dL (5.8-8.1); Sodium 132 mmol/L (136-145)
[2023-12-14 03:31] VITALS: BMI 19.8
[2023-12-14] MEDS: Levothyroxine Sodium 75 MCG TAB PO SCH (06:08)
[2023-12-14] MEDS ORDERED: Famotidine/PF 20 mg/2ml Vial SLOW IVP SCH (09:00)
[2023-12-14] MEDS ORDERED: Famotidine 20 MG TAB PO SCH (09:00)
[2023-12-14] MEDS: Pantoprazole DR 40 MG TAB PO SCH (11:27)
[2023-12-14] MEDS: levETIRAcetam 500 MG TAB PO SCH (11:27)
[2023-12-14] MEDS: Doxycycline 100 MG in Sodium Chloride 0.9% 100 ML IVPB SCH (11:32)
[2023-12-14] MEDS: Aspirin 81 mg Enteric Coated Tablet PO SCH (11:34)
[2023-12-14] MEDS: levETIRAcetam 500 mg/5 ml Oral Solution PO SCH ×2 (12:34→20:44)
[2023-12-14] MEDS: Lorazepam 0.5 MG TAB PO SCH (13:01)
[2023-12-14] MEDS: Clopidogrel Bisulfate 75 MG TAB PO SCH (16:13)
[2023-12-14 17:27] VITALS: BMI 19.8
[2023-12-14] MEDS: Tamsulosin HCl 0.4 MG CAP PO SCH (20:44)
[2023-12-14] MEDS: Atorvastatin Calcium 40 MG TAB PO SCH (20:44)
[2023-12-15 04:07] LABS: Anion Gap 14 mmol/L (10-20); BUN (Urea Nitrogen) 14 mg/dL (8.4-25.7); Calc. Creatinine Clearance 70 mL/min (70-130); Calcium 8.2 mg/dL (7.8-10.44); Carbon Dioxide 20 mmol/L (23-31); Cardiac Risk 5.8 (Less than 4.5); Chloride 107 mmol/L (98-107); Cholesterol 138 mg/dl (< 200 Desired); Estimated GFR 91; Glucose 99 mg/dL (83-110); HDL Cholesterol 24 mg/dL (>60 Neg Risk); LDL Cholesterol, Calculated 98 mg/dL; Magnesium 1.6 mg/dL (1.6-2.6); Potassium 3.3 mmol/L (3.5-5.1); Sodium 138 mmol/L (136-145); Triglycerides 80 mg/dL (Less than 150)
[2023-12-15 04:18] LABS: Hemoglobin 8.9 g/dL (14.0-18.0); Mean Corpuscular HGB CONC 31.8 g/dL (32.0-36.0); Mean Corpuscular Hemoglobin 28.7 pg (27.0-31.0); Mean Corpuscular Volume 90.3 fL (78.0-98.0); Mean Platelet Volume 9.1 fL (7.4-10.4); Platelet Count 495 10x3/uL (130-400); RBC Distribution Width 14.4 % (11.5-14.5)
[2023-12-15 04:55] LABS: Anisocytosis SLIGHT = 6-15 cells HPF (0-5); Band 3 % (5-11); Burr Cells SLIGHT = 2-5 cells HPF (0-1); Dohle Bodies SLIGHT; Eosinophils 3 % (0-10); Hypochromia SLIGHT = 6-15 cells HPF (0-5); Lymphocytes 52 % (21-51); Macrocytosis SLIGHT = 6-15 cells HPF (0-5); Monocytes 1 % (0-10); Neutrophil 41 % (42-75); Ovalocytes SLIGHT = 2-5 cells HPF (0-1); Platelet Adequacy Comment Platelets Increased; Polychromasia SLIGHT = 2-3 cells HPF (0-2); Smudge Cells 98.4 %; Toxic Granulation MODERATE
[2023-12-15] MEDS: Potassium Chloride 20 MEQ TAB PO SCH (08:39)
[2023-12-15] MEDS: Clopidogrel Bisulfate 75 MG TAB PO SCH (08:40)
[2023-12-15] MEDS: Carvedilol 6.25 MG TAB PO SCH (16:30)
[2023-12-15] MEDS: Senokot S 8.6-50 MG TAB PO PRN (16:30)
[2023-12-16 04:07] LABS: Hematocrit 26.6 % (42.0-52.0); Hemoglobin 8.6 g/dL (14.0-18.0); Mean Corpuscular HGB CONC 32.3 g/dL (32.0-36.0); Mean Corpuscular Hemoglobin 28.9 pg (27.0-31.0); Mean Corpuscular Volume 89.3 fL (78.0-98.0); Platelet Count 480 10x3/uL (130-400); RBC Distribution Width 14.4 % (11.5-14.5); Red Blood Cell (RBC) Count 2.98 mill/uL (4.70-6.10)
[2023-12-16 04:16] LABS: Anion Gap 13 mmol/L (10-20); BUN (Urea Nitrogen) 11 mg/dL (8.4-25.7); Calc. Creatinine Clearance 67 mL/min (70-130); Carbon Dioxide 20 mmol/L (23-31); Chloride 106 mmol/L (98-107); Estimated GFR 88; Glucose 102 mg/dL (83-110); Magnesium 1.5 mg/dL (1.6-2.6); Potassium 3.5 mmol/L (3.5-5.1); Sodium 135 mmol/L (136-145)
[2023-12-16 05:47] LABS: Band 4 % (5-11); Burr Cells SLIGHT = 2-5 cells HPF (0-1); Hypochromia SLIGHT = 6-15 cells HPF (0-5); Lymphocytes 51 % (21-51); Microcytosis SLIGHT = 6-15 cells HPF (0-5); Monocytes 2 % (0-10); Neutrophil 43 % (42-75); Platelet Adequacy Comment Platelets Increased; Polychromasia SLIGHT = 2-3 cells HPF (0-2); Tear Drops SLIGHT = 2-5 cells HPF (0-1)
[2023-12-16] MEDS ORDERED: Electrolyte Replacement Protocol 1 EACH FS SCH (08:30)
[2023-12-16] MEDS: Magnesium 2 GM/50 ML(in water) 2 GM in Premix 1 BAG IVPB SCH (10:03)
[2023-12-16] MEDS: Bisacodyl 5 MG TAB PO PRN (10:03)
[2023-12-16] MEDS: Potassium Chloride 20 MEQ TAB PO SCH (10:04)
[2023-12-16] MEDS: Amlodipine 5 MG TAB PO SCH (10:04)
[2023-12-17 04:58] LABS: Anion Gap 14 mmol/L (10-20); BUN (Urea Nitrogen) 13 mg/dL (8.4-25.7); Calc. Creatinine Clearance 63 mL/min (70-130); Calcium 7.9 mg/dL (7.8-10.44); Carbon Dioxide 19 mmol/L (23-31); Chloride 107 mmol/L (98-107); Estimated GFR 81; Glucose 100 mg/dL (83-110); Hematocrit 27.3 % (42.0-52.0); Hemoglobin 8.8 g/dL (14.0-18.0); Mean Corpuscular HGB CONC 32.2 g/dL (32.0-36.0); Mean Corpuscular Hemoglobin 28.6 pg (27.0-31.0); Mean Corpuscular Volume 88.6 fL (78.0-98.0); Mean Platelet Volume 9.1 fL (7.4-10.4); Platelet Count 486 10x3/uL (130-400); Potassium 3.8 mmol/L (3.5-5.1); RBC Distribution Width 14.4 % (11.5-14.5); Red Blood Cell (RBC) Count 3.08 mill/uL (4.70-6.10); Sodium 136 mmol/L (136-145)
[2023-12-17 05:33] LABS: Band 4 % (5-11); Burr Cells SLIGHT = 2-5 cells HPF (0-1); Eosinophils 2 % (0-10); Hypochromia SLIGHT = 6-15 cells HPF (0-5); Large Platelets 1.4 % (0-5); Lymphocytes 55 % (21-51); Macrocytosis SLIGHT = 6-15 cells HPF (0-5); Monocytes 1 % (0-10); Neutrophil 37 % (42-75); Platelet Adequacy Comment Platelets Increased; Polychromasia SLIGHT = 2-3 cells HPF (0-2); Schistocytes SLIGHT = 2-5 cells HPF (0-1); Spherocytes SLIGHT = 1-5 cells HPF (None Seen); Toxic Granulation SLIGHT
[2023-12-17] MEDS: Magnesium 2 GM/50 ML(in water) 2 GM in Premix 1 BAG IVPB SCH (08:33)
[2023-12-18 05:02] LABS: ALT (SGPT) 5 U/L (8-55); AST (SGOT) 10 U/L (5-34); Albumin 2.4 g/dL (3.4-4.8); Alkaline Phosphatase 44 U/L (40-110); Anion Gap 11 mmol/L (10-20); BUN (Urea Nitrogen) 13 mg/dL (8.4-25.7); Bilirubin, Total 0.3 mg/dL (0.2-1.2); Calc. Creatinine Clearance 66 mL/min (70-130); Calcium 7.7 mg/dL (7.8-10.44); Carbon Dioxide 18 mmol/L (23-31); Chloride 110 mmol/L (98-107); Estimated GFR 86; Globulin 2.3 g/dL (2.4-3.5); Glucose 85 mg/dL (83-110); Potassium 3.6 mmol/L (3.5-5.1); Protein, Total 4.7 g/dL (5.8-8.1); Sodium 135 mmol/L (136-145)
[2023-12-18 05:23] LABS: Hematocrit 25.9 % (42.0-52.0); Hemoglobin 8.4 g/dL (14.0-18.0); Mean Corpuscular HGB CONC 32.4 g/dL (32.0-36.0); Mean Corpuscular Hemoglobin 28.9 pg (27.0-31.0); Mean Platelet Volume 9.1 fL (7.4-10.4); Platelet Count 457 10x3/uL (130-400); RBC Distribution Width 14.5 % (11.5-14.5); Red Blood Cell (RBC) Count 2.91 mill/uL (4.70-6.10)
[2023-12-18 09:42] LABS: Band 1 % (5-11); Eosinophils 1 % (0-10); Lymphocytes 82 % (21-51); Neutrophil 16 % (42-75); Plasma Cells 0 % (0-0); Platelet Adequacy Comment Appears Increased; Smudge Cells Moderate; Total Cell Count 100
[2023-12-18 16:33] VITALS: BP 126/64; TEMP 97.9
== END 2023-12-18 20:42 | DRG 64 ==
LOC: ERS 22:28 → 2SE 12-14 00:16 → OBSVTOIN 12-15 08:13
PROVIDERS: ADMIT Internal Medicine; ATTEND Internal Medicine
DX: I63.9 Cerebral infarction, unspecified (principal); G93.41 Metabolic encephalopathy; C85.90 Non-Hodgkin lymphoma, unspecified, unspecified site; C15.9 Malignant neoplasm of esophagus, unspecified; I10 Essential (primary) hypertension; G40.909 Epilepsy, unspecified, not intractable, without status epilepticus; E03.9 Hypothyroidism, unspecified; K21.9 Gastro-esophageal reflux disease without esophagitis; Z98.890 Other specified postprocedural states; N40.0 Benign prostatic hyperplasia without lower urinary tract symptoms; Z79.82 Long term (current) use of aspirin; Z79.899 Other long term (current) drug therapy
CPT/HCPCS: 36415; 36416; 70450; 70551; 74230; 80048; 80053; 80061; 83036; 83605; 83735; 84145; 85025; 87040; 93005; 93306; 96365; 96372; 96375; G0378; J0696; J1650; J3475

== ENCOUNTER 2024-01-14 00:06 | Inpatient (IN) | payer MEDICARE ==
[2024-01-15 01:11] LABS: Hemoglobin 4.5 g/dL (14.0-18.0); Mean Corpuscular Hemoglobin 25.9 pg (27.0-31.0); Mean Corpuscular Volume 86.2 fL (78.0-98.0); Mean Platelet Volume 8.5 fL (7.4-10.4); Platelet Count 424 10x3/uL (130-400); RBC Distribution Width 17.8 % (11.5-14.5); Red Blood Cell (RBC) Count 1.74 mill/uL (4.70-6.10)
[2024-01-15 01:23] LABS: ALT (SGPT) 6 U/L (8-55); AST (SGOT) 9 U/L (5-34); Albumin 2.5 g/dL (3.4-4.8); Alkaline Phosphatase 89 U/L (40-110); Anion Gap 14 mmol/L (10-20); BUN (Urea Nitrogen) 9 mg/dL (8.4-25.7); Bilirubin, Total 0.3 mg/dL (0.2-1.2); Calc. Creatinine Clearance 0 mL/min (70-130); Calcium 7.7 mg/dL (7.8-10.44); Carbon Dioxide 16 mmol/L (23-31); Chloride 105 mmol/L (98-107); Estimated GFR 88; Globulin 2.5 g/dL (2.4-3.5); Glucose 133 mg/dL (83-110); Potassium 3.8 mmol/L (3.5-5.1); Sodium 131 mmol/L (136-145)
[2024-01-15 01:30] LABS: Troponin I Less than 0.010 ng/mL (< 0.028)
[2024-01-15 01:53] LABS: Band 7 % (5-11); Burr Cells SLIGHT = 2-5 cells HPF (0-1); Eosinophils 3 % (0-10); Hypochromia MODERATE=16-30 cells HPF (0-5); Lymphocytes 49 % (21-51); Metamyelocyte 1 % (0-0); Microcytosis SLIGHT = 6-15 cells HPF (0-5); Neutrophil 40 % (42-75); Ovalocytes SLIGHT = 2-5 cells HPF (0-1); Platelet Adequacy Comment Platelets Normal; Polychromasia SLIGHT = 2-3 cells HPF (0-2); Smudge Cells 81.1 %; Toxic Granulation MODERATE
[2024-01-15] MEDS ORDERED: Sodium Chloride 0.9% 100 ML ONE (03:33)
[2024-01-15] MEDS ORDERED: cefTRIAXone (ROCEPHIN) 1 GM VIAL ONE (03:33)
[2024-01-15] MEDS ORDERED: Azithromycin 500 MG VIAL ONE (04:16)
[2024-01-15 07:39] VITALS: BMI 22.0
[2024-01-15] MEDS ORDERED: Acetaminophen 325 MG TAB PO PRN (08:00)
[2024-01-15] MEDS: Furosemide 20 MG (2 mL) VIAL SLOW IVP SCH (09:20)
[2024-01-15] MEDS: Pantoprazole 40 MG VIAL IVP SCH (09:20)
[2024-01-15] MEDS ORDERED: Iopamidol-370 76% 500 ML MDV (1 ML CHARGE) ONE (11:33)
[2024-01-15 15:15] LABS: Hematocrit 25.7 % (42.0-52.0); Hemoglobin 8.4 g/dL (14.0-18.0); Mean Corpuscular HGB CONC 32.7 g/dL (32.0-36.0); Mean Corpuscular Volume 82.6 fL (78.0-98.0); Mean Platelet Volume 8.8 fL (7.4-10.4); Platelet Count 314 10x3/uL (130-400); RBC Distribution Width 17.2 % (11.5-14.5); Red Blood Cell (RBC) Count 3.11 mill/uL (4.70-6.10)
[2024-01-15 16:15] LABS: Anisocytosis MODERATE=16-30 cells HPF (0-5); Band 7 % (5-11); Burr Cells SLIGHT = 2-5 cells HPF (0-1); Dohle Bodies SLIGHT; Hypochromia SLIGHT = 6-15 cells HPF (0-5); Lymphocytes 73 % (21-51); Neutrophil 20 % (42-75); Platelet Adequacy Comment Platelets Normal; Poikilocytosis SLIGHT = 6-15 cells HPF (0-5); Polychromasia MODERATE = 3-4 cells HPF (0-2); Schistocytes SLIGHT = 2-5 cells HPF (0-1); Smudge Cells 81.4 %; Toxic Granulation SLIGHT
[2024-01-15] MEDS: OXcarbazepine 300 MG TAB PO SCH (20:34)
[2024-01-16] MEDS: cefTRIAXone\\ROCEPHIN 2 GM in Sodium Chloride 0.9% 100 ML IVPB SCH (04:38)
[2024-01-16] MEDS: Azithromycin 500 MG in Sodium Chloride 0.9% 250 ML 250 ML IVPB SCH (05:13)
[2024-01-16] MEDS ORDERED: Lidocaine 2% PF 5 ML VIAL ONE (10:10)
[2024-01-16] MEDS ORDERED: PROPOFOL 40 ML ONE (10:10)
[2024-01-16] MEDS ORDERED: Etomidate 40 MG (20 mL) VIAL ONE (10:15)
[2024-01-16] MEDS ORDERED: SUCCINYLCHOLINE/SOD CL,ISO/PF 200 MG/10 ML SYRINGE FS ONE (10:22)
[2024-01-16] MEDS ORDERED: ePHEDrine Sulfate 50 MG/10 ML VIAL ONE (10:23)
[2024-01-16] MEDS ORDERED: Dexamethasone 20 MG/5 ML VIAL ONE (10:45)
[2024-01-16] MEDS ORDERED: Albuterol HFA (OR) 200 PUFF INH ONE (10:45)
[2024-01-16] MEDS ORDERED: Ondansetron PF 4 MG/2 ML Vial ONE (10:45)
[2024-01-16] MEDS: Levothyroxine Sodium 75 MCG TAB PO SCH (11:49)
[2024-01-16 14:31] LABS: Hematocrit 26.6 % (42.0-52.0); Hemoglobin 8.5 g/dL (14.0-18.0); Mean Corpuscular Hemoglobin 26.4 pg (27.0-31.0); Mean Corpuscular Volume 82.6 fL (78.0-98.0); Mean Platelet Volume 8.4 fL (7.4-10.4); Platelet Count 368 10x3/uL (130-400); RBC Distribution Width 17.8 % (11.5-14.5); Red Blood Cell (RBC) Count 3.22 mill/uL (4.70-6.10)
[2024-01-16 14:49] LABS: Anion Gap 12 mmol/L (10-20); BUN (Urea Nitrogen) 12 mg/dL (8.4-25.7); Calc. Creatinine Clearance 74 mL/min (70-130); Calcium 7.9 mg/dL (7.8-10.44); Carbon Dioxide 17 mmol/L (23-31); Chloride 107 mmol/L (98-107); Estimated GFR 88; Glucose 142 mg/dL (83-110); Potassium 3.6 mmol/L (3.5-5.1); Sodium 132 mmol/L (136-145)
[2024-01-16] MEDS: Tamsulosin HCl 0.4 MG CAP PO SCH (19:57)
[2024-01-17] MEDS: Levothyroxine Sodium 75 MCG TAB PO SCH (04:54)
[2024-01-17 06:54] LABS: Hematocrit 23.5 % (42.0-52.0); Hemoglobin 7.4 g/dL (14.0-18.0); Mean Corpuscular HGB CONC 31.5 g/dL (32.0-36.0); Mean Corpuscular Hemoglobin 26.3 pg (27.0-31.0); Mean Corpuscular Volume 83.6 fL (78.0-98.0); Mean Platelet Volume 8.6 fL (7.4-10.4); Platelet Count 352 10x3/uL (130-400); RBC Distribution Width 18.3 % (11.5-14.5); Red Blood Cell (RBC) Count 2.81 mill/uL (4.70-6.10)
[2024-01-17 07:20] LABS: Anion Gap 13 mmol/L (10-20); BUN (Urea Nitrogen) 16 mg/dL (8.4-25.7); Calc. Creatinine Clearance 78 mL/min (70-130); Calcium 7.7 mg/dL (7.8-10.44); Carbon Dioxide 18 mmol/L (23-31); Chloride 108 mmol/L (98-107); Estimated GFR 91; Glucose 123 mg/dL (83-110); Potassium 3.8 mmol/L (3.5-5.1); Sodium 135 mmol/L (136-145)
[2024-01-17] MEDS ORDERED: Ondansetron PF 4 MG/2 ML Vial IVP PRN (08:32)
[2024-01-17] MEDS ORDERED: Acetaminophen 325 MG TAB PO PRN (08:32)
[2024-01-17 12:12] LABS: Hematocrit 23.2 % (42.0-52.0); Hemoglobin 7.4 g/dL (14.0-18.0)
[2024-01-18 06:22] LABS: Hemoglobin 7.9 g/dL (14.0-18.0); Mean Corpuscular HGB CONC 31.6 g/dL (32.0-36.0); Mean Corpuscular Hemoglobin 26.8 pg (27.0-31.0); Mean Corpuscular Volume 84.7 fL (78.0-98.0); Mean Platelet Volume 8.5 fL (7.4-10.4); Platelet Count 352 10x3/uL (130-400); RBC Distribution Width 18.5 % (11.5-14.5); Red Blood Cell (RBC) Count 2.95 mill/uL (4.70-6.10)
[2024-01-18 06:44] LABS: Anion Gap 10 mmol/L (10-20); BUN (Urea Nitrogen) 14 mg/dL (8.4-25.7); Calc. Creatinine Clearance 86 mL/min (70-130); Calcium 7.6 mg/dL (7.8-10.44); Carbon Dioxide 21 mmol/L (23-31); Chloride 107 mmol/L (98-107); Estimated GFR 93; Glucose 88 mg/dL (83-110); Potassium 3.6 mmol/L (3.5-5.1); Sodium 134 mmol/L (136-145)
[2024-01-18] MEDS ORDERED: Docusate 100 MG CAP PO PRN (12:27)
[2024-01-18] MEDS ORDERED: Polyethylene Glycol 3350 17 GM Packet PO PRN (12:27)
[2024-01-18] MEDS: Polyethylene Glycol 3350 17 GM Packet PO SCH (12:31)
[2024-01-18] MEDS: Docusate 100 MG CAP PO SCH (12:31)
[2024-01-19 06:01] LABS: Hematocrit 26.2 % (42.0-52.0); Hemoglobin 8.1 g/dL (14.0-18.0); Mean Corpuscular HGB CONC 30.9 g/dL (32.0-36.0); Mean Corpuscular Hemoglobin 26.6 pg (27.0-31.0); Mean Corpuscular Volume 85.9 fL (78.0-98.0); Mean Platelet Volume 8.8 fL (7.4-10.4); Platelet Count 345 10x3/uL (130-400); RBC Distribution Width 18.6 % (11.5-14.5); Red Blood Cell (RBC) Count 3.05 mill/uL (4.70-6.10)
[2024-01-19] MEDS: Amlodipine 5 MG TAB PO SCH (10:29)
[2024-01-21 00:31] VITALS: TEMP 98
[2024-01-21 07:57] VITALS: BP 154/77
== END 2024-01-21 13:40 | DRG 840 ==
LOC: ERS 00:06 → T4-B 01-15 07:25
PROVIDERS: ADMIT Student in an Organized Health Care Education/Training Program; ATTEND Internal Medicine
PROC: 30233N1 Transfusion of Nonautologous Red Blood Cells into Peripheral Vein, Percutaneous Approach (ICD-10-PCS; 2024-01-15)
PROC: 0DB58ZX Excision of Esophagus, Via Natural or Artificial Opening Endoscopic, Diagnostic (ICD-10-PCS; principal; 2024-01-16)
DX: C85.90 Non-Hodgkin lymphoma, unspecified, unspecified site (principal); J18.9 Pneumonia, unspecified organism; E44.1 Mild protein-calorie malnutrition; D64.9 Anemia, unspecified; I10 Essential (primary) hypertension; Z96.653 Presence of artificial knee joint, bilateral; F17.220 Nicotine dependence, chewing tobacco, uncomplicated; G40.909 Epilepsy, unspecified, not intractable, without status epilepticus; E78.5 Hyperlipidemia, unspecified; E03.9 Hypothyroidism, unspecified; N40.0 Benign prostatic hyperplasia without lower urinary tract symptoms; Z98.890 Other specified postprocedural states; Z79.899 Other long term (current) drug therapy; Z79.82 Long term (current) use of aspirin; Z51.5 Encounter for palliative care; Z68.22 Body mass index [BMI] 22.0-22.9, adult; K22.70 Barrett's esophagus without dysplasia; Z66 Do not resuscitate; K44.9 Diaphragmatic hernia without obstruction or gangrene; D63.8 Anemia in other chronic diseases classified elsewhere
CPT/HCPCS: 36415; 36430; 71045; 71275; 80048; 80053; 83605; 83880; 84484; 85025; 85027; 86850; 86900; 86901; 86922; 87040; 87428; 88305; 93005; 94760; 96365; 96367; J0456; J0696; J1100; J1940; J2405; J2470; J2704; J7050; P9016; Q9967